=== PATIENT | female | born 1945 | race Caucasian/White ===

== ENCOUNTER 2022-11-09 07:33 | Inpatient (IN) | payer BC, MEDICAID, SELFPAY ==
[2022-11-09] VITALS (23 sets, daily range): BP systolic 117–250; BP diastolic 70–115; PULSE 60–106; RESP 12–32; TEMP 35.7–37.2; O2SAT 86–100; BMI 27.5
--- NOTE | ~2022-11-09 | CT_ITS ---
EXAMINATION: CT HEAD WITHOUT CONTRAST CLINICAL INFORMATION: Altered mental status. COMPARISON: CT head 04/13/2019. TECHNIQUE: Contiguous axial imaging was performed from the skull base to vertex without intravenous administration of contrast. This CT examination was performed using dose optimization techniques as appropriate, variously including the following: *Automated exposure control *Adjustment of mA and/or kV according to patient size (this includes techniques or standardized protocols for targeted exams where dose is matched to indication/reason for exam; i.e. extremities or head) *Use of iterative reconstruction technique DLP: 1866 mGy-cm FINDINGS: There is no acute intracranial hemorrhage or abnormal extra-axial collection. No intracranial mass effect or midline shift. Lateral and third ventricles are normal. No hydrocephalus. Scattered nonspecific foci of hypoattenuation visualized within the periventricular white matter. Thomas-white matter differentiation is otherwise preserved and there is no evidence of acute territorial infarct. The calvarium and skull base are intact. Mastoid air cells and middle ear cavities are well aerated. Moderate paranasal sinus disease. CT/CT head/brain wo IV con IMPRESSION: There are scattered chronic small vessel ischemic changes within the periventricular white matter. Otherwise unremarkable examination. No evidence of acute territorial infarct or hemorrhage.
--- NOTE | ~2022-11-09 | XR_ITS ---
EXAMINATION: XR CHEST CLINICAL INFORMATION: Fever COMPARISON: Chest radiography and chest CT 11/09/2022 TECHNIQUE: Frontal view of the chest was obtained. FINDINGS: Evaluation is somewhat limited by rotation. There is evidence of increasing pleural-based opacity in the lower right hemithorax consistent with developing moderate pleural effusion and right lower lung atelectasis or consolidation. Persistent reticular opacity is seen through the right upper lung and throughout the left lung. The left pleural space appears clear. XR/XR chest 1V IMPRESSION: Technically limited examination demonstrates increasing right thoracic opacity consistent with moderate pleural effusion and increasing right lower lung atelectasis or airspace consolidation. Persistent reticular opacity through the superior right lung and throughout the left lung.
--- NOTE | ~2022-11-09 | CT_ITS ---
EXAMINATION: CT chest wo IV con. CLINICAL INFORMATION: Shortness of breath COMPARISON: No prior CT available for comparison. TECHNIQUE: Multidetector volumetric CT imaging of the chest was done. Axial MIP volume rendering provided. Sagittal and coronal reformatted images were obtained. This CT examination was performed using dose optimization techniques as appropriate, variously including the following: *Automated exposure control *Adjustment of mA and/or kV according to patient size (this includes techniques or standardized protocols for targeted exams where dose is matched to indication/reason for exam; i.e. extremities or head) *Use of iterative reconstruction technique CONTRAST: Noncontrasted study. DLP: 370 mGy-cm FINDINGS: EX CHEF: LINES/TUBES: Energy Audit Advisor reviewed, no lines. LUNGS: Lung parenchyma: There is pulmonary vascular congestion, diminished lung volume, there is interstitial opacification consolidation in the middle lobe and right lower lobe, air bronchogram, the pattern suggests most likely pneumonia. Lung nodules/masses: It would be difficult to assess for possible lung nodules given the extensive disease present which could easily obscured underlying nodules. AIRWAYS: Trachea and bronchi are normal. PLEURA: There is a small right pleural effusion. MEDIASTINUM AND CATARINO: Enlarged pretracheal lymph node measuring up to 2 x 1.4 cm. Uncertain etiology could be reactive. Other lymph nodes difficult to visualize due to lack of contrast. No mediastinal mass. VESSELS: HEART AND PERICARDIUM: Aneurysmal dilatation of the descending thoracic aorta which measure up to 3.9 x 4 cm, the aorta is heavily calcified. Ascending aorta 3.5 cm. The heart is enlarged. No pericardial effusion. There are heavy coronary calcifications. Pulmonary arteries are normal in size. LOWER NECK, AXILLA: The visualized thyroid gland is unremarkable. No axillary mass or adenopathy. VISUALIZED ABDOMEN: There is probably hiatal hernia. Otherwise unremarkable. CHEST WALL AND BONES: No chest wall mass. The visualized bony thorax is within normal limits. CT/CT chest wo IV con IMPRESSION: - Cardiomegaly, pulmonary vascular congestion,. *Diminished lung volume. *Consolidations in the middle lobe and right lower lobe, air bronchogram, the pattern suggests most likely pneumonia. Follow-up recommended to ensure complete clearance and exclude underlying pathology. - Small right pleural effusion. - Enlarged pretracheal lymph node 2 x 1.4 cm, this could be reactive. 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 - Heavy coronary calcification. - Probably hiatal hernia.
--- NOTE | ~2022-11-09 | CT_ITS ---
EXAMINATION: CT ABDOMEN AND PELVIS WITHOUT CONTRAST CLINICAL INFORMATION: 77-year-old female with severe right-sided abdominal pain. COMPARISON: None available. TECHNIQUE: Multidetector volumetric imaging was performed from the superior aspect of the liver through the pubic symphysis. Sagittal and coronal reformatted images were obtained on the technologist's workstation. This CT examination was performed using dose optimization techniques as appropriate, variously including the following: *Automated exposure control *Adjustment of mA and/or kV according to patient size (this includes techniques or standardized protocols for targeted exams where dose is matched to indication/reason for exam; i.e. extremities or head) *Use of iterative reconstruction technique DLP: 800.42 mGy-cm FINDINGS: LUNG BASES: Mucous plugging of right lower lobe bronchi. Patchy airspace opacity in the right middle lobe and right lower lobe is likely from infectious/inflammatory rather than infiltrative neoplastic disease process. Clinical correlation is advised. Trace right pleural effusion is present. Cardiomegaly. There is atherosclerotic calcification of coronary arteries and thoracic aorta. LIVER: The liver has normal size, shape, and attenuation. No evidence of liver mass. GALLBLADDER AND BILIARY TREE: Gallbladder is physiologically distended and has a 0.5 cm calcified stone. No gallbladder wall thickening or pericholecystic fluid. No dilated bile ducts. PANCREAS: Normal. No edema, pancreatic ductal dilatation or mass. SPLEEN: Normal. ADRENAL GLANDS: Mild nodular thickening of the medial limb of left adrenal gland. The nodular area in the left adrenal measures 1 cm transverse, 1.5 cm AP, and has density of 3 HU, consistent with lipid rich adenoma. No adrenal imaging follow-up recommended. KIDNEYS AND URETERS: Kidneys are normal in size. No renal stones or hydronephrosis. 2 cm simple cortical cyst of the posterior left lower pole. No renal imaging follow-up recommended. The ureters are grossly unremarkable. BLADDER: Normal. BOWEL AND PERITONEUM: No dilated loops of bowel. The appendix is not definitively seen. No inflammatory changes within the right lower quadrant. Multiple diverticula of the descending and sigmoid colon without evidence of diverticulitis. No mesenteric fat stranding, free fluid or pneumoperitoneum. ABDOMINAL WALL: Chronic diastases of rectus abdominis muscles. An old 1.5 cm focus of fat necrosis is present in subcutaneous tissues of the anterior abdominal wall. VASCULATURE: There is extensive atherosclerotic calcification of the abdominal aorta and iliac arteries. The infrarenal abdominal aorta measures up to 2.2 cm maximum AP diameter. No retroperitoneal hematoma. LYMPH NODES: No pathologic sized lymph nodes in the abdomen or pelvis. No inguinal lymphadenopathy. PELVIC VISCERA: Status post hysterectomy. No adnexal mass or pelvic free fluid. MUSCULOSKELETAL: Bones are diffusely osteopenic. Old compression fracture of T1 vertebral body which exhibits approximately 45-50% anterior height loss. Facet osteoarthritis and grade 1 anterolisthesis at L5-S1. No acute or suspicious osseous abnormality. CT/CT abdomen pelvis wo IV con IMPRESSION: * Mucous plugging of right lower lobe bronchi, patchy airspace opacities of the right middle and right lower lobe and trace right pleural effusion. These abnormalities are likely from infectious/inflammatory disease (i.e, pneumonia) rather than an infiltrative neoplastic disease process. Clinical and radiographic follow-up recommended. * Cholelithiasis without cholecystitis. * Diverticulosis of the descending and sigmoid colon without diverticulitis. * No acute abnormalities within the abdomen or pelvis.
--- NOTE | ~2022-11-09 | XR_ITS ---
EXAMINATION: XR chest 1V CLINICAL INFORMATION: Reason for Exam sob COMPARISON: Prior chest x-ray 07/03/2021 TECHNIQUE: XR chest 1V Tubes and lines: None Lungs and pleura: Redemonstration of Diffuse increased interstitial lung marking and peribronchial cuffing might be a small airway disease such as bronchiolitis or interstitial pneumonitis, versus interstitial lung disease versus interstitial edema. No dense focal consolidation pneumonia. Heart and mediastinum: Mediastinum widened exaggerated by AP technique.. Bones/soft tissue: Skeletal structures included are normal for patient's age. XR/XR chest 1V IMPRESSION: Redemonstration of diffuse increased interstitial lung marking and peribronchial cuffing might be a small airway disease such as bronchiolitis or interstitial pneumonitis, versus interstitial lung disease versus interstitial edema. No dense focal consolidation pneumonia.
--- NOTE | 2022-11-09 07:55 | ECG_ITS ---
Test Reason : cp Blood Pressure : / mmHG Vent. Rate : 089 BPM Atrial Rate : 089 BPM P-R Int : 148 ms QRS Dur : 100 ms QT Int : 358 ms P-R-T Axes : 039 -30 076 degrees QTc Int : 435 ms Sinus rhythm with Premature atrial complexes Possible Left atrial enlargement Left axis deviation Left ventricular hypertrophy with repolarization abnormality ( R in aVL , Sokolow-Spencer , Roebl product , Romhilt-Ramos ) Abnormal ECG When compared with ECG of 04-JUL-2019 22:10, Premature atrial complexes are now Present Nonspecific T wave abnormality no longer evident in Inferior leads Referred By: Maribel Baez Electronically Signed By:HENRIK SMITH
--- NOTE | 2022-11-09 08:08 | ED.GENADULT ---
HPI - General Adult General Chief complaint: Abdominal Pain Stated complaint: RIGHT SIDED ABD PAIN Time Seen by Provider: 11/09/22 09:54 Source: patient and EMS Mode of arrival: EMS Limitations: other (patient poor historian ) History of Present Illness HPI narrative: 77-year-old female history, hypertension, anemia, chronic obstructive pulmonary disease, Alzheimer's disease, restless leg in agitation, adjustment disorder, acute psychosis coming from alf facility presents with right-sided abdominal pain per EMS, patient poor historian and unable to give me a clear history however she states that her breast hurts and her abdomen hurts, patient reports she has been feeling this way for 5 days however per EMS report facility states this is only been going on for day. Unable to obtain accurate review of systems from patient. She is only answering questions appropriately intermittently. Related Data Allergies Allergy/AdvReac Type Severity Reaction Status Date / Time epinephrine [EPINEPHRINE] Allergy Unknown UNKNOWN Verified 11/09/22 08:17 levofloxacin [LEVOFLOXACIN] Allergy Unknown UNKNOWN Verified 11/09/22 08:17 procaine [From NOVOCAIN] Allergy Unknown UNKNOWN Verified 11/09/22 08:17 codeine [Codeine] AdvReac Mild VOMITING Verified 11/09/22 08:17 hydrocortisone AdvReac Mild HIGH BP Verified 11/09/22 08:17 [From Cortizone-10] atenolol [ATENOLOL] AdvReac Unknown UNKNOWN Verified 11/09/22 08:17 lidocaine [LIDOCAINE] AdvReac Unknown UNKNOWN Verified 11/09/22 08:17 sulfamethizole AdvReac Unknown UNKNOWN Verified 11/09/22 08:17 [SULFAMETHIZOLE] Review of Systems Review of Systems: Yes Unobtainable due to mental status PMFSH Past Medical History Attestation statement: The following information was validated with the patient. Source: old records reviewed and nursing notes reviewed Medical History (Updated 11/09/22 @ 12:27 by KEMAL Mobley) AD (Alzheimer's disease) Adjustment disorder Anemia Congestive heart failure COPD (chronic obstructive pulmonary disease) HTN (hypertension) Hyperlipidemia Insomnia Pruritus Social History Social History Alcohol intake: unknown Use of substances other than those prescribed or required for medical reasons: Unable to respond Advance Directives: No Advance Directives Information Provided: Yes Physical Exam ED Vital Signs: Vital Signs - 24 hr 11/09/22 07:39 11/09/22 09:23 11/09/22 10:29 Temperature 99.0 F 98.7 F Pulse Rate 98 83 94 Pulse Rate [Bilateral Apical] Respiratory Rate 24 H 27 H 22 H Blood Pressure 226/97 H Pulse Oximetry 86 L Oxygen Delivery Method Room Air Nasal Cannula Oxygen Flow Rate 4 11/09/22 10:00 11/09/22 10:12 11/09/22 10:13 Temperature Pulse Rate 94 93 93 Pulse Rate [Bilateral Apical] Respiratory Rate 30 H 26 H 26 H Blood Pressure 248/112 H Pulse Oximetry 93 100 97 Oxygen Delivery Method Non-Rebreather Mask Non-Rebreather Mask Oxygen Flow Rate 6 100 11/09/22 10:31 11/09/22 10:49 11/09/22 11:12 Temperature Pulse Rate 98 106 H 89 Pulse Rate [Bilateral Apical] Respiratory Rate 30 H 32 H 28 H Blood Pressure 248/112 H 247/106 H 250/115 H Pulse Oximetry 93 90 L 90 L Oxygen Delivery Method Oxymask Oxymask Oxygen Flow Rate 10 10 11/09/22 11:12 11/09/22 11:42 11/09/22 11:53 Temperature 97.6 F 96.3 F L Pulse Rate 95 92 Pulse Rate [Bilateral Apical] Respiratory Rate 26 H 18 21 H Blood Pressure 236/88 H 215/89 H Pulse Oximetry 90 L 95 Oxygen Delivery Method Oxymask Oxygen Flow Rate 10 11/09/22 09:30 11/09/22 12:00 Temperature 98.4 F Pulse Rate 61 Pulse Rate [Bilateral Apical] 96 Respiratory Rate 22 H Blood Pressure 184/72 H Pulse Oximetry 91 L Oxygen Delivery Method High Flow Nasal Cannula Oxygen Flow Rate BMI result Body Mass Index 27.5 Vital signs significant for hypoxia. Placed on 2 L nasal cannula Appearance: Awake and not oriented to person, place time or situation. Patient appears uncomfortable Head: Normocephalic, atraumatic, no step-offs or deformities Eyes: Pupils equal, round and reactive to light.? Neck: Normal inspection.? Neck supple.? CVS: Normal heart rate and rhythm.? Pulses normal.? Respiratory: No respiratory distress.? Breath sounds diminished bilaterally with crackles throughout..? Abdomen: Soft and diffusely tender worse to the right upper and lower quadrant slightly rigit abdomen w/ rebound tenderness patient gaurding abdomen.? Skin: Skin warm and dry.? Normal skin color.? Normal skin turgor.? Extremities: No lower extremity edema.? No calf ttp. Global weakness. Neuro: Awake and not oriented to person, place time or situation. Patient appears uncomfortable. Unable to follow commands , therefore difficult to obtain neurological assessment on this patient. Course Reevaluation(s) Reevaluation #1: Amaris ORTIZ from [facility] states that at 0300 patient was asking to go to the hospital, she was having RLQ pain and reported that the pain went to R armpit. Patient usually doesnt complain of pain per nurse. Patient + for rhinoviurs results came in yesterday, patient was not hypoxic there. Not on oxygen. Full code. Time: 08:25 Reevaluation #2: Patient was agitated and it was difficult to obtain labs and get an IV on patient, I was able to start a line on this patient in the right forearm region Time: 08:30 Reevaluation #3: At this time infection suspected white blood cell count 31.3, Time: 09:02 Additional Reevaluation(s): 1025- I was called to CT scan as patient was sitting up, she is altered, pulling on monitor leads, not staying still, my attending responded to the call, gave ketamine, 30 mg. Patient on satellite project site monitor saturating 98%. I did speak to patient's who states patient is full code into follow-up patient's MOLST form . I did ask patient's what he would like done in case she needed surgery for any reason and he says to proceed with surgery if at any point surgery is needed. 1032- chemistry with no acute electrolyte abnormalities requiring intervention BUN slightly elevated 29 likely secondary to poor p.o. intake/dehydration, troponin 20.4, will repeat at the 3 hour myrtle, BNP 380, no signs of fluid overload on exam, shortness of breath likely secondary to pneumonia I do not suspect acute CHF. Patient D-dimer elevated however likely secondary to pneumonia, this case was discussed with my attending who does not recommend CT scans with contrast. 1228 CT head and brain with scattered chronic small-vessel ischemic changes however no acute intracranial hemorrhage or acute territorial infarct. CT of chest with cardiomegaly, pulmonary vascular congestion, diminished lung volumes. 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 Abdomen pelvis CT with mucus plugging in right lower lobe bronchi, patchy airspace opacities, I did add is a throat patient's medications. Cholelithiasis without cholecystitis. Diverticulosis of the descending and sigmoid colon without diverticulitis. No acute abnormalities within the abdomen or pelvis. Patient's pressure improving, spoke to hospitalist to admit this patient. Patient saturating well on high-flow Medications Administered Discontinued Medications Generic Name Dose Route Start Last Admin Trade Name Freq PRN Reason Stop Dose Admin Albuterol/Ipratropium 3 ml 11/09/22 09:26 11/09/22 10:29 Albuterol/Iprat 2.5/0.5mg 3 Ml Ampul.Neb INHALE 11/09/22 09:27 3 ml ONCE ONE Administration Amlodipine Besylate 5 mg 11/09/22 08:24 11/09/22 08:49 Amlodipine Besylate 5 Mg Tablet PO 11/09/22 08:25 5 mg ONCE ONE Administration Protocol Hydromorphone HCl 0.5 mg 11/09/22 09:49 11/09/22 09:55 Hydromorphone Hcl 0.5 Mg/0.5 Ml Syringe IVPUSH 11/09/22 09:50 0.5 mg ONCE ONE Administration Protocol Piperacillin Sod/Tazobactam 50 mls @ 100 mls/hr 11/09/22 09:00 11/09/22 09:50 Sod 3.375 gm/ Sodium Chloride IV 11/09/22 09:29 Infused ONCE ONE Infusion Sodium Chloride 2,319 mls @ 2,319 mls/hr 11/09/22 09:00 11/09/22 10:00 Ns 30 ml/kg infuse over 1 hr (2319 ml) 11/09/22 09:59 Infused IV Infusion .Q1H STA Ketamine HCl 30 mg 11/09/22 10:31 11/09/22 10:39 Ketamine Hcl 500 Mg/5 Ml Vial IVPUSH 11/09/22 10:32 30 mg ONCE ONE Administration Morphine Sulfate 4 mg 11/09/22 08:21 11/09/22 08:48 Morphine Sulfate 4 Mg/Ml Cartridge IVPUSH 11/09/22 08:22 4 mg ONCE ONE Administration Protocol Medical Decision Making Medical Decision Making [facility] Narrative: 0810 77-year-old female presents with right-sided abdominal per EMS and patient however patient poor historian. Physical exam significant fordiffusely tender worse to the right upper and lower quadrant slightly rigit abdomen w/ rebound tenderness patient gaurding abdomen.?, lung sounds diminished bilaterally with crackles throughout. Regular rate rhythm peer. Patient is not alert to person, place time or situation. Not following commands. Unable to obtain accurate neurological assessment Hypoxic and hypertensive. B/l pressure elevated but similar. Concerns for possible pneumonia, pleural effusion, pulmonary embolism. Also concern for intra-abdominal etiologies such as obstruction, appendicitis, pancreatitis, diverticulitis, cholecystitis. History and physical exam concerning for possible surgical abdomen will obtain imaging. Will obtain EKG to rule out dysrhythmia is will obtain troponin to rule out ACS. Will rule out electrolyte abnormalities and UTI. Hx and PE unlikely disection/ ruptured aneurysm. Hypertension likely secondary to pain however other differentials include hypertensive urgency or emergency. Plan at this time labs, imaging, urine. Attempting to call Matilda Sosa to obtain more information Differential Diagnosis Differential Diagnoses: The differential diagnosis associated with the presentation includes Concerns for possible pneumonia, pleural effusion, pulmonary embolism. Also concern for intra-abdominal etiologies such as obstruction, appendicitis, pancreatitis, diverticulitis, cholecystitis. History and physical exam concerning for possible surgical abdomen will obtain imaging. Will obtain EKG to rule out dysrhythmia is will obtain troponin to rule out ACS. Will rule out electrolyte abnormalities and UTI. Hx and PE unlikely disection/ ruptured aneurysm. Hypertension likely secondary to pain however other differentials include hypertensive urgency or emergency. Admission/Observation Consideration of admission/observation: Escalation of care including admission/observation considered Lab Data [facility] Lab Attestation statement: I reviewed the patient's lab results. 11/09/22 08:43 11/09/22 08:41 Labs: Lab Results 11/09/22 11/09/22 11/09/22 Range/Units 08:41 08:41 08:41 WBC (4.8-10.8) X10*3/uL RBC (4.20-5.50) X10*6/uL Hgb (12.0-16.0) g/dl Hct (37.0-47.0) % MCV (80.0-98.0) fL MCH (27.0-33.0) pg MCHC (31.0-35.0) g/dl RDW (11.0-16.0) % Plt Count (160-400) X10*3/uL MPV (9.4-12.3) fL Immature Gran % (Auto) Neut % (Auto) Lymph % (Auto) [place] % (Auto) Eos % (Auto) Baso % (Auto) Lymph # (Auto) [place] # (Auto) Eos # (Auto) Baso # (Auto) Abs Immat Gran (auto) Absolute Neuts (auto) Absolute Nucleated RBC (0.0-0.012) X10*3/uL Nucleated RBC % (auto) (0.0-0.2) /100WBC Neutrophils % (Manual) (45-73) % Band Neutrophils % (3-5) % Lymphocytes % (Manual) (20-40) % Monocytes % (Manual) (2-11) % Abs Neuts (Manual) (2.0-8.3) X10*3/uL Lymphocytes # (Manual) (1.2-4.9) X10*3/uL Monocytes # (Manual) (0.1-1.2) X10*3/uL Toxic Vacuolation Platelet Estimate (NORMAL) Large Platelets Plt Morphology Comment RBC Morphology Smear Tech's Comments PT (11.1-13.3) SEC INR (0.9-1.1) D-Dimer High Sensitivty NG/ML O2 Saturation % ABG pH at Pt Temp (7.35-7.45) ABG pCO2 at Pt Temp (32-45) mmHg ABG pO2 at Pt Temp (83-108) mmHg ABG HCO3 (22-26) mmol/L ABG Base Excess (Actual) mmol/L Sodium (135-145) mmol/L Potassium (3.3-5.1) mmol/L Chloride (96-108) mmol/L Carbon Dioxide (22-29) mmol/L Anion Gap (12-20) BUN (9-16) mg/dL Creatinine (0.5-1.4) mg/dL Estim Creat Clear Calc Estimated GFR Random Glucose (60-115) mg/dL Lactic Acid 1.7 (0.5-2.0) mmol/L Calcium (8.4-10.2) mg/dL Magnesium (1.6-2.6) mg/dL Total Bilirubin (0.0-1.0) mg/dL AST (5-31) U/L ALT (0-31) U/L Alkaline Phosphatase (39-117) U/L Troponin I High Sens 20.4 H (<3.5-17.0) ng/L B-Natriuretic Peptide 380 H (<100) pg/mL Total Protein (6.5-8.0) g/dL Albumin (3.5-5.0) g/dL Lipase (8-78) U/L Urine Color Urine Appearance Urine pH (5.0-9.0) Ur Specific [place] (1.005-1.025) Urine Protein (Neg-Trace) mg/dL Urine Glucose (UA) (Negative) mg/dL Urine Ketones (Negative) mg/dL Urine Blood (Negative) Urine Nitrite (Negative) Ur Leukocyte Esterase (Negative) Urine RBC (0-2) /HPF Urine WBC (0-5) /HPF Ur Squamous Epith Cells (0-2) /HPF Urine Bacteria (None Seen) Hyaline Casts (0-2) /LPF Salicylates (15-30) mg/dL Urine Opiates Screen (Not Detect) Urine Fentanyl Screen (Not Detect) Acetaminophen (<30) mcg/mL Ur Barbiturates Screen (Not Detect) Ur Phencyclidine Scrn (Not Detect) Ur Amphetamines Screen (Not Detect) U Benzodiazepines Scrn (Not Detect) Urine Cocaine Screen (Not Detect) U Marijuana (THC) Screen (Not Detect) COVID-19 (WILLIAN) (Negative) COVID-19 Clin Com 11/09/22 11/09/22 11/09/22 Range/Units 08:43 08:44 09:42 WBC 31.3 H* (4.8-10.8) X10*3/uL RBC 4.66 (4.20-5.50) X10*6/uL Hgb 14.7 (12.0-16.0) g/dl Hct 43.7 (37.0-47.0) % MCV 93.8 (80.0-98.0) fL MCH 31.5 (27.0-33.0) pg MCHC 33.6 (31.0-35.0) g/dl RDW 14.3 (11.0-16.0) % Plt Count 228 (160-400) X10*3/uL MPV 12.0 (9.4-12.3) fL Immature Gran % (Auto) Cancelled Neut % (Auto) Cancelled Lymph % (Auto) Cancelled [place] % (Auto) Cancelled Eos % (Auto) Cancelled Baso % (Auto) Cancelled Lymph # (Auto) Cancelled [place] # (Auto) Cancelled Eos # (Auto) Cancelled Baso # (Auto) Cancelled Abs Immat Gran (auto) Cancelled Absolute Neuts (auto) Cancelled Absolute Nucleated RBC 0.000 (0.0-0.012) X10*3/uL Nucleated RBC % (auto) 0.0 (0.0-0.2) /100WBC Neutrophils % (Manual) 83 H (45-73) % Band Neutrophils % 12 H (3-5) % Lymphocytes % (Manual) 3 L (20-40) % Monocytes % (Manual) 2 (2-11) % Abs Neuts (Manual) 29.7 H (2.0-8.3) X10*3/uL Lymphocytes # (Manual) 0.9 L (1.2-4.9) X10*3/uL Monocytes # (Manual) 0.6 (0.1-1.2) X10*3/uL Toxic Vacuolation PRESENT Platelet Estimate NORMAL (NORMAL) Large Platelets PRESENT Plt Morphology Comment NOTED RBC Morphology NORMAL Smear Tech's Comments MANUAL DIFF PT 16.3 H (11.1-13.3) SEC INR 1.3 H (0.9-1.1) D-Dimer High Sensitivty 463 NG/ML O2 Saturation % ABG pH at Pt Temp (7.35-7.45) ABG pCO2 at Pt Temp (32-45) mmHg ABG pO2 at Pt Temp (83-108) mmHg ABG HCO3 (22-26) mmol/L ABG Base Excess (Actual) mmol/L Sodium (135-145) mmol/L Potassium (3.3-5.1) mmol/L Chloride (96-108) mmol/L Carbon Dioxide (22-29) mmol/L Anion Gap (12-20) BUN (9-16) mg/dL Creatinine (0.5-1.4) mg/dL Estim Creat Clear Calc Estimated GFR Random Glucose (60-115) mg/dL Lactic Acid (0.5-2.0) mmol/L Calcium (8.4-10.2) mg/dL Magnesium (1.6-2.6) mg/dL Total Bilirubin (0.0-1.0) mg/dL AST (5-31) U/L ALT (0-31) U/L Alkaline Phosphatase (39-117) U/L Troponin I High Sens (<3.5-17.0) ng/L B-Natriuretic Peptide (<100) pg/mL Total Protein (6.5-8.0) g/dL Albumin (3.5-5.0) g/dL Lipase (8-78) U/L Urine Color Urine Appearance Urine pH (5.0-9.0) Ur Specific [place] (1.005-1.025) Urine Protein (Neg-Trace) mg/dL Urine Glucose (UA) (Negative) mg/dL Urine Ketones (Negative) mg/dL Urine Blood (Negative) Urine Nitrite (Negative) Ur Leukocyte Esterase (Negative) Urine RBC (0-2) /HPF Urine WBC (0-5) /HPF Ur Squamous Epith Cells (0-2) /HPF Urine Bacteria (None Seen) Hyaline Casts (0-2) /LPF Salicylates (15-30) mg/dL Urine Opiates Screen (Not Detect) Urine Fentanyl Screen (Not Detect) Acetaminophen (<30) mcg/mL Ur Barbiturates Screen (Not Detect) Ur Phencyclidine Scrn (Not Detect) Ur Amphetamines Screen (Not Detect) U Benzodiazepines Scrn (Not Detect) Urine Cocaine Screen (Not Detect) U Marijuana (THC) Screen (Not Detect) COVID-19 (WILLIAN) Negative (Negative) COVID-19 Clin Com See Note 11/09/22 11/09/22 11/09/22 Range/Units 09:42 09:42 11:39 WBC (4.8-10.8) X10*3/uL RBC (4.20-5.50) X10*6/uL Hgb (12.0-16.0) g/dl Hct (37.0-47.0) % MCV (80.0-98.0) fL MCH (27.0-33.0) pg MCHC (31.0-35.0) g/dl RDW (11.0-16.0) % Plt Count (160-400) X10*3/uL MPV (9.4-12.3) fL Immature Gran % (Auto) Neut % (Auto) Lymph % (Auto) [place] % (Auto) Eos % (Auto) Baso % (Auto) Lymph # (Auto) [place] # (Auto) Eos # (Auto) Baso # (Auto) Abs Immat Gran (auto) Absolute Neuts (auto) Absolute Nucleated RBC (0.0-0.012) X10*3/uL Nucleated RBC % (auto) (0.0-0.2) /100WBC Neutrophils % (Manual) (45-73) % Band Neutrophils % (3-5) % Lymphocytes % (Manual) (20-40) % Monocytes % (Manual) (2-11) % Abs Neuts (Manual) (2.0-8.3) X10*3/uL Lymphocytes # (Manual) (1.2-4.9) X10*3/uL Monocytes # (Manual) (0.1-1.2) X10*3/uL Toxic Vacuolation Platelet Estimate (NORMAL) Large Platelets Plt Morphology Comment RBC Morphology Smear Tech's Comments PT (11.1-13.3) SEC INR (0.9-1.1) D-Dimer High Sensitivty NG/ML O2 Saturation 96.0 % ABG pH at Pt Temp 7.30 L (7.35-7.45) ABG pCO2 at Pt Temp 53 H (32-45) mmHg ABG pO2 at Pt Temp 94 (83-108) mmHg ABG HCO3 27 H (22-26) mmol/L ABG Base Excess (Actual) -0.4 mmol/L Sodium 136 (135-145) mmol/L Potassium 3.9 (3.3-5.1) mmol/L Chloride 100 (96-108) mmol/L Carbon Dioxide 24 (22-29) mmol/L Anion Gap 16 (12-20) BUN 29 H (9-16) mg/dL Creatinine 0.86 (0.5-1.4) mg/dL Estim Creat Clear Calc 59.3 Estimated GFR > 60 Random Glucose 163 H (60-115) mg/dL Lactic Acid (0.5-2.0) mmol/L Calcium 10.2 (8.4-10.2) mg/dL Magnesium 2.3 (1.6-2.6) mg/dL Total Bilirubin 1.8 H (0.0-1.0) mg/dL AST 22 (5-31) U/L ALT 14 (0-31) U/L Alkaline Phosphatase 90 (39-117) U/L Troponin I High Sens (<3.5-17.0) ng/L B-Natriuretic Peptide (<100) pg/mL Total Protein 7.5 (6.5-8.0) g/dL Albumin 4.1 (3.5-5.0) g/dL Lipase 9 (8-78) U/L Urine Color Urine Appearance Urine pH (5.0-9.0) Ur Specific [place] (1.005-1.025) Urine Protein (Neg-Trace) mg/dL Urine Glucose (UA) (Negative) mg/dL Urine Ketones (Negative) mg/dL Urine Blood (Negative) Urine Nitrite (Negative) Ur Leukocyte Esterase (Negative) Urine RBC (0-2) /HPF Urine WBC (0-5) /HPF Ur Squamous Epith Cells (0-2) /HPF Urine Bacteria (None Seen) Hyaline Casts (0-2) /LPF Salicylates < 5.0 L (15-30) mg/dL Urine Opiates Screen (Not Detect) Urine Fentanyl Screen (Not Detect) Acetaminophen < 17 (<30) mcg/mL Ur Barbiturates Screen (Not Detect) Ur Phencyclidine Scrn (Not Detect) Ur Amphetamines Screen (Not Detect) U Benzodiazepines Scrn (Not Detect) Urine Cocaine Screen (Not Detect) U Marijuana (THC) Screen (Not Detect) COVID-19 (WILLIAN) (Negative) COVID-19 Clin Com 11/09/22 11/09/22 Range/Units 11:59 11:59 WBC (4.8-10.8) X10*3/uL RBC (4.20-5.50) X10*6/uL Hgb (12.0-16.0) g/dl Hct (37.0-47.0) % MCV (80.0-98.0) fL MCH (27.0-33.0) pg MCHC (31.0-35.0) g/dl RDW (11.0-16.0) % Plt Count (160-400) X10*3/uL MPV (9.4-12.3) fL Immature Gran % (Auto) Neut % (Auto) Lymph % (Auto) [place] % (Auto) Eos % (Auto) Baso % (Auto) Lymph # (Auto) [place] # (Auto) Eos # (Auto) Baso # (Auto) Abs Immat Gran (auto) Absolute Neuts (auto) Absolute Nucleated RBC (0.0-0.012) X10*3/uL Nucleated RBC % (auto) (0.0-0.2) /100WBC Neutrophils % (Manual) (45-73) % Band Neutrophils % (3-5) % Lymphocytes % (Manual) (20-40) % Monocytes % (Manual) (2-11) % Abs Neuts (Manual) (2.0-8.3) X10*3/uL Lymphocytes # (Manual) (1.2-4.9) X10*3/uL Monocytes # (Manual) (0.1-1.2) X10*3/uL Toxic Vacuolation Platelet Estimate (NORMAL) Large Platelets Plt Morphology Comment RBC Morphology Smear Tech's Comments PT (11.1-13.3) SEC INR (0.9-1.1) D-Dimer High Sensitivty NG/ML O2 Saturation % ABG pH at Pt Temp (7.35-7.45) ABG pCO2 at Pt Temp (32-45) mmHg ABG pO2 at Pt Temp (83-108) mmHg ABG HCO3 (22-26) mmol/L ABG Base Excess (Actual) mmol/L Sodium (135-145) mmol/L Potassium (3.3-5.1) mmol/L Chloride (96-108) mmol/L Carbon Dioxide (22-29) mmol/L Anion Gap (12-20) BUN (9-16) mg/dL Creatinine (0.5-1.4) mg/dL Estim Creat Clear Calc Estimated GFR Random Glucose (60-115) mg/dL Lactic Acid (0.5-2.0) mmol/L Calcium (8.4-10.2) mg/dL Magnesium (1.6-2.6) mg/dL Total Bilirubin (0.0-1.0) mg/dL AST (5-31) U/L ALT (0-31) U/L Alkaline Phosphatase (39-117) U/L Troponin I High Sens (<3.5-17.0) ng/L B-Natriuretic Peptide (<100) pg/mL Total Protein (6.5-8.0) g/dL Albumin (3.5-5.0) g/dL Lipase (8-78) U/L Urine Color Dark Yellow Urine Appearance Cloudy Urine pH 5.5 (5.0-9.0) Ur Specific [place] >= 1.030 H (1.005-1.025) Urine Protein 100 (2+) H (Neg-Trace) mg/dL Urine Glucose (UA) Negative (Negative) mg/dL Urine Ketones Trace (Negative) mg/dL Urine Blood Negative (Negative) Urine Nitrite Negative (Negative) Ur Leukocyte Esterase Trace H (Negative) Urine RBC 3-5 H (0-2) /HPF Urine WBC 6-10 H (0-5) /HPF Ur Squamous Epith Cells 6-10 (0-2) /HPF Urine Bacteria 2+ (None Seen) Hyaline Casts 3-5 (0-2) /LPF Salicylates (15-30) mg/dL Urine Opiates Screen POSITIVE H (Not Detect) Urine Fentanyl Screen Not Detected (Not Detect) Acetaminophen (<30) mcg/mL Ur Barbiturates Screen Not Detected (Not Detect) Ur Phencyclidine Scrn Not Detected (Not Detect) Ur Amphetamines Screen Not Detected (Not Detect) U Benzodiazepines Scrn Not Detected (Not Detect) Urine Cocaine Screen Not Detected (Not Detect) U Marijuana (THC) Screen Not Detected (Not Detect) COVID-19 (WILLIAN) (Negative) COVID-19 Clin Com Independent Interpretation I performed an independent interpretation of an: CT Scan Radiology Impression Discussion of test interpretation with radiology: I have reviewed the radiologist's reading. Core Measures AMI core measures followed: Yes Measure exclusions: not indicated Critical Care Time Critical Care Time Critical Care Time: Yes Total Critical Care Time: 60 Attestation: I attest to this time spent taking care of the patient, obtaining history, physical, reviewing labs, imaging, speaking to my attending, speaking to specialist. Discharge Plan Discharge Clinical Impression: Pneumonia, Sepsis, Abdominal pain, Acute UTI Patient Disposition: Still a Patient
[2022-11-09] MEDS: Morphine Sulfate 4 MG/ML CARTRIDGE IVPUSH ×2 (08:48→16:55)
--- NOTE | 2022-11-09 08:48 | PC.NURSE ---
brought to ed via ambulance from [facility], chief c/o 12/23 RU abd pain that radiates to the R side. on arrival pt satting 85-87% r/a, pt placed on 2L n/c brought O2 to 88-89%. O2 increased to 3L, O2 sat 89-90% 3l N/C. unable to obtain b/o on arrival d/t pt not able to stay still. oral temp 99.0. pt climbing out of bed resulting in move closer to nurses station. report of to DIANA Mccollum. KEMAL Hall aware.
[2022-11-09] MEDS: amLODIPine Besylate 5 MG TABLET PO (08:49)
[2022-11-09 08:55] LABS: Hematocrit 43.7 % (37.0-47.0); Hemoglobin 14.7 g/dl (12.0-16.0); Mean Corpuscular HGB Conc 33.6 g/dl (31.0-35.0); Mean Corpuscular Hemoglobin 31.5 pg (27.0-33.0); Mean Corpuscular Volume 93.8 fL (80.0-98.0); Platelet Count 228 X10*3/uL (160-400); Red Blood Count 4.66 X10*6/uL (4.20-5.50); Red Cell Distribution Width 14.3 % (11.0-16.0)
[2022-11-09 08:59] LABS: White Blood Count 31.3 X10*3/uL (4.8-10.8)
[2022-11-09 09:05] LABS: Lactic Acid 1.7 mmol/L (0.5-2.0)
[2022-11-09 09:10] LABS: COVID-19 Test Negative (Negative); IDNOW Serial# 08D9AD1C
[2022-11-09 09:16] LABS: B Type Natriuretic Peptide 380 pg/mL (<100)
[2022-11-09 09:16] LABS: SLIDE REVIEW MANUAL DIFF
--- NOTE | 2022-11-09 09:16 | PC.NURSE ---
pt moved from room 1 to room 21 due to patient attempting to climb oob, patient alert to person/place, iv inserted/labs drawn by provider, cardic monitor applied- pt noted to be in nonsustaining v-tach, ekg performed- ekg noted at the time to be nsr, pt continues to be hypertensive- took po medicatin, pt c/o 10/10 back pain- pt also medicated with morphine for pain, ivf started per order, cxr performed, fall precautions and standard precautions placed, call ricketts within reach, will continue to monitor.
[2022-11-09 09:19] LABS: Neutrophils Percent Manual 83 % (45-73)
[2022-11-09 09:20] LABS: Band Neutrophils Percent 12 % (3-5); Lymphocytes Absolute Manual 0.9 X10*3/uL (1.2-4.9); Lymphocytes Percent Manual 3 % (20-40); Monocytes Absolute Manual 0.6 X10*3/uL (0.1-1.2); Monocytes Percent Manual 2 % (2-11); Neutrophils Absolute Manual 29.7 X10*3/uL (2.0-8.3)
[2022-11-09] MEDS: Piperacillin Sodium/Tazobactam 3.375 GM in 0.9 % Sodium Chloride 50 ML IV (09:20)
[2022-11-09 09:21] LABS: Troponin-I High Sensitivity 20.4 ng/L (<3.5-17.0)
[2022-11-09 09:21] LABS: Large Platelet PRESENT; Platelet Estimate NORMAL (NORMAL); Platelet Morphology Comment NOTED; RBC Morphology NORMAL
[2022-11-09 09:22] LABS: Toxic Vacuolation PRESENT
[2022-11-09 09:54] LABS: INTERNATIONAL NORM RATIO 1.3 (0.9-1.1); Prothrombin Time 16.3 SEC (11.1-13.3)
[2022-11-09] MEDS: HYDROmorphone HCl 0.5 MG/0.5 ML SYRINGE IVPUSH (09:55)
[2022-11-09 09:56] LABS: D Dimer High Sensitivity 463 NG/ML
[2022-11-09 10:01] LABS: Anion Gap 16 (12-20)
[2022-11-09 10:05] LABS: Alanine Aminotransferase 14 U/L (0-31); Albumin Level 4.1 g/dL (3.5-5.0); Alkaline Phosphatase 90 U/L (39-117); Aspartate Amino Transferase 22 U/L (5-31); Bilirubin Total 1.8 mg/dL (0.0-1.0); Blood Urea Nitrogen 29 mg/dL (9-16); Calcium 10.2 mg/dL (8.4-10.2); Carbon Dioxide 24 mmol/L (22-29); Chloride 100 mmol/L (96-108); Creatinine Clr Calc Pharmacy 59.3; Estimated Glomerular Filt Rate > 60; Glucose Random 163 mg/dL (60-115); Lipase 9 U/L (8-78); Magnesium 2.3 mg/dL (1.6-2.6); Potassium 3.9 mmol/L (3.3-5.1); Sodium 136 mmol/L (135-145); Total Protein 7.5 g/dL (6.5-8.0)
[2022-11-09 10:21] LABS: Acetaminophen LAB < 17 mcg/mL (<30); Salicylate < 5.0 mg/dL (15-30)
[2022-11-09] MEDS: Albuterol/Iprat 2.5/0.5MG 3 ML AMPUL.NEB INHALE (10:29)
--- NOTE | 2022-11-09 10:35 | PC.NURSE ---
accompanied pt to CT - pt was extremely anxious and agitated while setting pt up for scans. pt was grabbing at this rn and radiologists clothing in fear. pt was in too much pain to lie flat on her back for scans to be completed. providers bedside as well and decided to administer ketamine to help ease anxiety and pain. provider pushed 20mg of ketamine at 10:12 (HR 93, 100% NRB, NSR), pt still restless after first dose. provider pushed another 10mg of ketamine at 1013 (HR 93< 97% NRB, NSR). pt tolerated medication administration well. scans completed by CT. pt returned to room and attached to monitors and IVF up and running. RT bedside giving breathing treatment. call ricketts placed within reach.
[2022-11-09] MEDS: Ketamine HCl 500 MG/5 ML VIAL 30 MG IVPUSH (10:39)
--- NOTE | 2022-11-09 10:51 | PC.NURSE ---
Addendum entered by Veda Alvarado RN 11/09/22 10:58: pt continues to have gag reflex Original Note: pt lungs continue to have rhonchi throughout, pt noted accessory muscle use with breathing as well as grunting, pt completed the updraft, placed on a oxymask 10 liters, providers at bedside due to patient status- notable htn, surveillance system monitor nsr with frequent pacs, ivf currently stopped per request of providers, respiratory to be called for high flow O2, will continue to monitor
--- NOTE | 2022-11-09 11:11 | PC.NURSE ---
contacted RT about ABG being drawn - states that they will be here shortly.
--- NOTE | 2022-11-09 11:25 | PC.NURSE ---
RT bedside - pt set on high flow. HF settings at 77% O2, 55 flow. RT attempting to draw ABG nanci.
--- NOTE | 2022-11-09 11:30 | PC.NURSE ---
RT had difficulty obtaining blood gas- Dr. Garcia at bedside to assist
[2022-11-09 11:45] LABS: ABG Base Excess -0.4 mmol/L; ABG HCO3 27 mmol/L (22-26); ABG pCO2 53 mmHg (32-45); ABG pO2 94 mmHg (83-108)
--- NOTE | 2022-11-09 11:55 | PC.NURSE ---
ABGs drawn by provider using ultrasound guidance - ABG sent to lab.
--- NOTE | 2022-11-09 11:57 | PC.NURSE ---
16Fr temp sensing granados catheter placed. pt tolerated well. 100ml of dark yellow/cloudy/small blood particles immediately after insertion. documented in I&O portion of worklist.
[2022-11-09 12:10] LABS: ABG Refer to POC result
[2022-11-09 12:11] LABS: Appearance Urine Cloudy; Color Urine Dark Yellow; Glucose Urine UA Negative (Negative); Leukocyte Esterase Urine Trace (Negative); Nitrite Urine Negative (Negative); PH 5.5 (5.0-9.0); Specific Gravity - Urine >= 1.030 (1.005-1.025); UMIC TRIGGER UACC YES; Urine Blood Negative (Negative); Urine Ketones Trace mg/dL (Negative); Urine Protein 100 (2+) mg/dL (Neg-Trace)
--- NOTE | 2022-11-09 12:15 | PC.NURSE ---
pt currently sleeping in no apparent distress, vss up to date on worklist. pt still currently on HiFlo 77% and 55. call ricketts placed within reach.
[2022-11-09 12:20] LABS: Amphetamine Screen Urine Not Detected (Not Detect); Barbiturates, Urine Not Detected (Not Detect); Benzodiazepines Screen Urine Not Detected (Not Detect); Cannabinoid Screen Urine Not Detected (Not Detect); Cocaine Screen Urine Not Detected (Not Detect); Fentanyl, urine Not Detected (Not Detect); Opiate Screen Urine POSITIVE (Not Detect); Phencyclidine Screen Urine Not Detected (Not Detect)
[2022-11-09 12:25] LABS: Bacteria Urine 2+ (None Seen); UACC Culture Trigger YES
--- NOTE | 2022-11-09 12:27 | P.HPHOSP_ITS ---
History of Present Illness Date of Service: 11/09/22 Attending physician on admission: Tee Peng Chief Complaint: Abdominal pain Pt is a 77-year-old female with a PMH significant for?Alzheimer's, HTN, COPD, adjustment disorder, and acute psychosis who presents to the ED from SNF apparently complaining abdominal pain radiating up the right side and shoulders. Patient is a resident of [facility] and not on any home meds, only taking acetaminophen p.r.n. Patient with hx of dementia, is AOx2 at baseline, but currently somnolent and barely arousable to noxious stimuli. She is inc apable of answering question is or providing accurate HPI at this time. HPI obtained from chart and provider review. Staff at [facility] report patient was experiencing RLQ pain radiating to right armpit. Patient tested positive for rhino virus yesterday. They report BP of 120/74 with O2 sats of 94% on RA. Patient not on home supplemental oxygen. Patient is a full code which was verified by ED who spoke to patient's . In the ED patient reported chest and abdominal pain. Was hypoxic at 86% on RA, improved to 97% on non-rebreather. Patient then placed on OxyMask with saturation at 90%., then placed on high- flow with mild improvement to 91%. In the ED patient was afebrile but tachycardic up to 106, tachypneic up to 32, hypertensive up to 250/115, satting at 86% on RA. Patient was placed on high- flow with improvement to 91%. Llabs were significant for leukocytosis of 31.3, bilirubin 1.8, BNP 380, and initial troponin 20.4 with repeat flat at 15.6. UA negative for UTI. H&H stable at 14.7/43.7. Electrolytes WNL. Renal function baseline. Lactic acid WNL at 1.7 CXR showed redemonstration of diffuse increased interstitial lung markings and peribronchial cuffing suggestive of small airway disease. CT of chest found consolidations in the middle lobe and right lower lobe most suggestive of pneumonia. 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 ?CT of abdomen and pelvis found no acute abnormalities in the abdomen or pelvis. Head CT found no evidence of acute territorial infarct or hemorrhage, but found scattered chronic small vessel ischemic changes. EKG demonstrated sinus rhythm with PACs. Pt was treated with morphine, amlodipine, IVF, DuoNebs, ketamine, Zosyn, and azithromycin. Pt will be admitted to the hospital for acute hypoxic respiratory failure in the setting hospital-acquired pneumonia. Review of Systems Review of Systems: Unable to obtain due to patient's mentation [facility] Medical History AD (Alzheimer's disease) Adjustment disorder Anemia Congestive heart failure COPD (chronic obstructive pulmonary disease) HTN (hypertension) Hyperlipidemia Insomnia Pruritus Social History Household Members: None Housing: [facility] Do you presently have visiting nurse or other home services: No Unable to assess alcohol history related to: Unknown Alcohol intake: unknown Patient Tobacco Use Status: Never used Tobacco Use of substances other than those prescribed or required for medical reasons: Unknown Currently Displaying Signs/Symptoms of Drug Intoxication Withdrawal: No Advance Directives: No Advance Directives Information Provided: Yes Do you have thoughts of harming others: None Do you have a plan to hurt others: No Plan Recently lost weight without trying: Unsure Nutrition Risks: No Nutritional Risk Patient : No : No Poor oral hygiene: No service: No Meds Allergies Allergy/AdvReac Type Severity Reaction Status Date / Time epinephrine [EPINEPHRINE] Allergy Unknown UNKNOWN Verified 11/09/22 08:17 levofloxacin [LEVOFLOXACIN] Allergy Unknown UNKNOWN Verified 11/09/22 08:17 procaine [From NOVOCAIN] Allergy Unknown UNKNOWN Verified 11/09/22 08:17 codeine [Codeine] AdvReac Mild VOMITING Verified 11/09/22 08:17 hydrocortisone AdvReac Mild HIGH BP Verified 11/09/22 08:17 [From Cortizone-10] atenolol [ATENOLOL] AdvReac Unknown UNKNOWN Verified 11/09/22 08:17 lidocaine [LIDOCAINE] AdvReac Unknown UNKNOWN Verified 11/09/22 08:17 sulfamethizole AdvReac Unknown UNKNOWN Verified 11/09/22 08:17 [SULFAMETHIZOLE] Active Medications: Current Medications Azithromycin 500 mg/ Sodium (Chloride) 250 mls @ 125 mls/hr IV ONCE ONE Stop: 11/09/22 14:17 Home Medications Medication Instructions Recorded Confirmed Last Taken Type acetaminophen 325 mg tablet 650 mg PO Q6H PRN Pain 11/09/22 11/09/22 Unknown History (Tylenol) nystatin 100,000 unit/gram topical 1 appl topical BID 11/09/22 11/09/22 Unknown History powder Physical Exam Vital Signs and Narrative: Vital Signs: Last Vital Signs Temp 98.4 F 11/09/22 12:00 Pulse 61 11/09/22 12:00 Resp 22 H 11/09/22 12:00 BP 184/72 H 11/09/22 12:00 Pulse Ox 91 L 11/09/22 12:00 O2 Del Method High Flow Nasal C annula 11/09/22 12:00 O2 Flow Rate 10 11/09/22 11:12 BMI result Body Mass Index 27.5 General: Somnolent, barely arousable to noxious stimuli, incapable of answering questions, on high-flow Resp: Diffuse rhonchi throughout CVS: S1, S2, RRR GI: +BS, NT, no distention Skin: No rash Neuro: Cranial nerves II-XII grossly intact bilaterally. Motor grossly intact bilaterally Extremities: No edema Results Labs 11/09/22 08:43 11/09/22 09:42 Labs: Laboratory Results - last 24 hr 11/09/22 11/09/22 11/09/22 08:41 08:41 08:43 MCV 93.8 MCH 31.5 MCHC 33.6 RDW 14.3 Plt Count 228 MPV 12.0 Immature Gran % (Auto) Cancelled Neut % (Auto) Cancelled Lymph % (Auto) Cancelled [place] % (Auto) Cancelled Eos % (Auto) Cancelled Baso % (Auto) Cancelled Lymph # (Auto) Cancelled [place] # (Auto) Cancelled Eos # (Auto) Cancelled Baso # (Auto) Cancelled Abs Immat Gran (auto) Cancelled Absolute Neuts (auto) Cancelled Absolute Nucleated RBC 0.000 Nucleated RBC % (auto) 0.0 Neutrophils % (Manual) 83 H Band Neutrophils % 12 H Lymphocytes % (Manual) 3 L Monocytes % (Manual) 2 Abs Neuts (Manual) 29.7 H Lymphocytes # (Manual) 0.9 L Monocytes # (Manual) 0.6 Toxic Vacuolation PRESENT Platelet Estimate NORMAL Large Platelets PRESENT Plt Morphology Comment NOTED RBC Morphology NORMAL Smear Tech's Comments MANUAL DIFF PT INR D-Dimer High Sensitivty O2 Saturation ABG pH at Pt Temp ABG pCO2 at Pt Temp ABG pO2 at Pt Temp ABG HCO3 ABG Base Excess (Actual) Anion Gap Estim Creat Clear Calc Estimated GFR Random Glucose Lactic Acid 1.7 Calcium Magnesium Total Bilirubin AST ALT Alkaline Phosphatase B-Natriuretic Peptide 380 H Total Protein Albumin Lipase Urine Color Urine Appearance Urine pH Ur Specific [place] Urine Protein Urine Glucose (UA) Urine Ketones Urine Blood Urine Nitrite Ur Leukocyte Esterase Urine RBC Urine WBC Ur Squamous Epith Cells Urine Bacteria Hyaline Casts Salicylates Urine Opiates Screen Urine Fentanyl Screen Acetaminophen Ur Barbiturates Screen Ur Phencyclidine Scrn Ur Amphetamines Screen U Benzodiazepines Scrn Urine Cocaine Screen U Marijuana (THC) Screen COVID-19 (WILLIAN) COVID-19 Clin Com 11/09/22 11/09/22 11/09/22 08:44 09:42 09:42 MCV MCH MCHC RDW Plt Count MPV Immature Gran % (Auto) Neut % (Auto) Lymph % (Auto) [place] % (Auto) Eos % (Auto) Baso % (Auto) Lymph # (Auto) [place] # (Auto) Eos # (Auto) Baso # (Auto) Abs Immat Gran (auto) Absolute Neuts (auto) Absolute Nucleated RBC Nucleated RBC % (auto) Neutrophils % (Manual) Band Neutrophils % Lymphocytes % (Manual) Monocytes % (Manual) Abs Neuts (Manual) Lymphocytes # (Manual) Monocytes # (Manual) Toxic Vacuolation Platelet Estimate Large Platelets Plt Morphology Comment RBC Morphology Smear Tech's Comments PT 16.3 H INR 1.3 H D-Dimer High Sensitivty 463 O2 Saturation ABG pH at Pt Temp ABG pCO2 at Pt Temp ABG pO2 at Pt Temp ABG HCO3 ABG Base Excess (Actual) Anion Gap 16 Estim Creat Clear Calc 59.3 Estimated GFR > 60 Random Glucose 163 H Lactic Acid Calcium 10.2 Magnesium 2.3 Total Bilirubin 1.8 H AST 22 ALT 14 Alkaline Phosphatase 90 B-Natriuretic Peptide Total Protein 7.5 Albumin 4.1 Lipase 9 Urine Color Urine Appearance Urine pH Ur Specific [place] Urine Protein Urine Glucose (UA) Urine Ketones Urine Blood Urine Nitrite Ur Leukocyte Esterase Urine RBC Urine WBC Ur Squamous Epith Cells Urine Bacteria Hyaline Casts Salicylates Urine Opiates Screen Urine Fentanyl Screen Acetaminophen Ur Barbiturates Screen Ur Phencyclidine Scrn Ur Amphetamines Screen U Benzodiazepines Scrn Urine Cocaine Screen U Marijuana (THC) Screen COVID-19 (WILLIAN) Negative COVID-19 Clin Com See Note 11/09/22 11/09/22 11/09/22 09:42 11:39 11:59 MCV MCH MCHC RDW Plt Count MPV Immature Gran % (Auto) Neut % (Auto) Lymph % (Auto) [place] % (Auto) Eos % (Auto) Baso % (Auto) Lymph # (Auto) [place] # (Auto) Eos # (Auto) Baso # (Auto) Abs Immat Gran (auto) Absolute Neuts (auto) Absolute Nucleated RBC Nucleated RBC % (auto) Neutrophils % (Manual) Band Neutrophils % Lymphocytes % (Manual) Monocytes % (Manual) Abs Neuts (Manual) Lymphocytes # (Manual) Monocytes # (Manual) Toxic Vacuolation Platelet Estimate Large Platelets Plt Morphology Comment RBC Morphology Smear Tech's Comments PT INR D-Dimer High Sensitivty O2 Saturation 96.0 ABG pH at Pt Temp 7.30 L ABG pCO2 at Pt Temp 53 H ABG pO2 at Pt Temp 94 ABG HCO3 27 H ABG Base Excess (Actual) -0.4 Anion Gap Estim Creat Clear Calc Estimated GFR Random Glucose Lactic Acid Calcium Magnesium Total Bilirubin AST ALT Alkaline Phosphatase B-Natriuretic Peptide Total Protein Albumin Lipase Urine Color Dark Yellow Urine Appearance Cloudy Urine pH 5.5 Ur Specific [place] >= 1.030 H Urine Protein 100 (2+) H Urine Glucose (UA) Negative Urine Ketones Trace Urine Blood Negative Urine Nitrite Negative Ur Leukocyte Esterase Trace H Urine RBC 3-5 H Urine WBC 6-10 H Ur Squamous Epith Cells 6-10 Urine Bacteria 2+ Hyaline Casts 3-5 Salicylates < 5.0 L Urine Opiates Screen Urine Fentanyl Screen Acetaminophen < 17 Ur Barbiturates Screen Ur Phencyclidine Scrn Ur Amphetamines Screen U Benzodiazepines Scrn Urine Cocaine Screen U Marijuana (THC) Screen COVID-19 (WILLIAN) COVID-19 Clin Com 11/09/22 11:59 MCV MCH MCHC RDW Plt Count MPV Immature Gran % (Auto) Neut % (Auto) Lymph % (Auto) [place] % (Auto) Eos % (Auto) Baso % (Auto) Lymph # (Auto) [place] # (Auto) Eos # (Auto) Baso # (Auto) Abs Immat Gran (auto) Absolute Neuts (auto) Absolute Nucleated RBC Nucleated RBC % (auto) Neutrophils % (Manual) Band Neutrophils % Lymphocytes % (Manual) Monocytes % (Manual) Abs Neuts (Manual) Lymphocytes # (Manual) Monocytes # (Manual) Toxic Vacuolation Platelet Estimate Large Platelets Plt Morphology Comment RBC Morphology Smear Tech's Comments PT INR D-Dimer High Sensitivty O2 Saturation ABG pH at Pt Temp ABG pCO2 at Pt Temp ABG pO2 at Pt Temp ABG HCO3 ABG Base Excess (Actual) Anion Gap Estim Creat Clear Calc Estimated GFR Random Glucose Lactic Acid Calcium Magnesium Total Bilirubin AST ALT Alkaline Phosphatase B-Natriuretic Peptide Total Protein Albumin Lipase Urine Color Urine Appearance Urine pH Ur Specific [place] Urine Protein Urine Glucose (UA) Urine Ketones Urine Blood Urine Nitrite Ur Leukocyte Esterase Urine RBC Urine WBC Ur Squamous Epith Cells Urine Bacteria Hyaline Casts Salicylates Urine Opiates Screen POSITIVE H Urine Fentanyl Screen Not Detected Acetaminophen Ur Barbiturates Screen Not Detected Ur Phencyclidine Scrn Not Detected Ur Amphetamines Screen Not Detected U Benzodiazepines Scrn Not Detected Urine Cocaine Screen Not Detected U Marijuana (THC) Screen Not Detected COVID-19 (WILLIAN) COVID-19 Clin Com Imaging Radiologist's Impressions: Impressions Chest X-Ray 11/09/22 09:24 IMPRESSION: Redemonstration of diffuse increased interstitial lung marking and peribronchial cuffing might be a small airway disease such as bronchiolitis or interstitial pneumonitis, versus interstitial lung disease versus interstitial edema. No dense focal consolidation pneumonia. Abdomen/Pelvis CT 11/09/22 11:00 IMPRESSION: * Mucous plugging of right lower lobe bronchi, patchy airspace opacities of the right middle and right lower lobe and trace right pleural effusion. These abnormalities are likely from infectious/inflammatory disease (i.e, pneumonia) rather than an infiltrative neoplastic disease process. Clinical and radiographic follow-up recommended. * Cholelithiasis without cholecystitis. * Diverticulosis of the descending and sigmoid colon without diverticulitis. * No acute abnormalities within the abdomen or pelvis. Chest CT 11/09/22 11:00 IMPRESSION: - Cardiomegaly, pulmonary vascular congestion,. *Diminished lung volume. *Consolidations in the middle lobe and right lower lobe, air bronchogram, the pattern suggests most likely pneumonia. Follow-up recommended to ensure complete clearance and exclude underlying pathology. - Small right pleural effusion. - Enlarged pretracheal lymph node 2 x 1.4 cm, this could be reactive. 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 - Heavy coronary calcification. - Probably hiatal hernia. Head CT 11/09/22 11:00 IMPRESSION: There are scattered chronic small vessel ischemic changes within the periventricular white matter. Otherwise unremarkable examination. No evidence of acute territorial infarct or hemorrhage. Assessment and Plan (1) Hospital-acquired pneumonia: Status: Acute Plan Pt is a 77-year-old female with a PMH significant for?Alzheimer's, HTN, COPD, adjustment disorder, and acute psychosis who presents to the ED from SNF apparently complaining abdominal pain radiating up the right side and shoulders. Patient is a resident of [facility] and not on any home meds, only taking acetaminophen p.r.n. Patient with hx of dementia, is AOx2 at baseline, but currently somnolent and barely arousable to noxious stimuli. Was found to be hypoxic and placed on high-flow. Patient be admitted to the hospital for treatment further evaluation of acute hypoxic respiratory failure in the setting of hospital-acquired pneumonia. Acute hypoxic respiratory failure in the setting of hospital-acquired pneumonia Patient is a resident of [facility] CT of chest with evidence of likely multilobular pneumonia Satting as low as 86% O2 on RA, currently on high-flow Patient meets sepsis criteria: Pneumonia, WBC, tachycardia, tachypnea. Lactic acid WNL Patient given broad-spectrum antibiotics and IVF in ED Will treat with Zosyn, vanco, started 11/09/2022 Continue high-flow, wean as tolerated Monitor on telemetry Hypertensive urgency Patient BP as high as 250/115 Likely secondary to sepsis, pneumonia Patient carries a diagnosis of HTN in her PMH, not currently on any antihypertensives Was given amlodipine in the ED, currently at 163/71 Monitor BP closely Abdominal pain Patient initially presenting to ED with RLQ abdominal pain radiating to right armpit Unclear etiology: CT of abdomen/pelvis negative for acute abdomen, possibly secodary to pneumonia Patient received morphine, hydromorphone, ketamine in the ED Continue analgesics for pain management Elevated D-dimer D-dimer mildly elevated at 463 Given patient's WBC, indication of pneumonia on CT, and lack of A-A gradient, will hold off on CTA for now Elevated troponins Initial troponin 20.4 with repeat down trending at 15.6 Most likely type 2 in the setting of demand ischemia COPD Pt not on home inhalers Will give Solu-Medrol IV Elevated BNP BNP elevated at 380, CT of chest found small right pleural effusion, no lower leg edema Patient given IVF in the ED Patient will be placed on gentle IVF hydration overnight Monitor volume status Diet Patient currently NPO given somnolence, confusion Full Code Attending:?Dr. Peng DVT Prophylaxis: Lovenox Pt will require a hospitalization of at least two nights for treatment of?acute hypoxic respiratory failure in the setting of hospital-acquired pneumonia. Time Spent With Patient Time: Total time managing care of this patient today ____ minutes. Quality Stroke Does the patient have a stroke diagnosis?: No VTE Prior VTE?: No VTE Risk Level:: Medical - moderate - high VTE Device Contraindication: Treatment Not Indicated VTE Drug Contraindication: N/A - Med Ordered
[2022-11-09 12:28] LABS: Troponin-I High Sensitivity 15.6 ng/L (<3.5-17.0)
[2022-11-09] MEDS: Azithromycin 500 MG in 0.9 % Sodium Chloride 250 ML 125 MG IV (12:36)
--- NOTE | 2022-11-09 12:40 | PC.NURSE ---
medication administered per provider order.
--- NOTE | 2022-11-09 12:53 | PC.NURSE ---
provider wants pt goal O2 at 90.%. pt fluctuating between 87%-89%. provider notified and aware. RT notified and states that they will be here shortly to increase pt's high flow.
--- NOTE | 2022-11-09 13:01 | PHA.MEDREC ---
Pharmacy Consult ? Medication Reconciliation Pharmacy has completed the medication reconciliation. Patient from [facility].
--- NOTE | 2022-11-09 13:08 | PC.NURSE ---
RT bedside increasing high flow to 75% and 55.
--- NOTE | 2022-11-09 14:17 | PC.NURSE ---
messaged admitting provider asking if he wants LR hung d/t pt's elevated BNP - awaiting for response.
[2022-11-09] MEDS: methylPREDNISolone Sod Succ 125 MG/2 ML VIAL IVPUSH (14:20)
[2022-11-09] MEDS: Pantoprazole Sodium 40 MG/10 ML VIAL IVPUSH (14:22)
--- NOTE | 2022-11-09 14:29 | PC.NURSE ---
per provider order, LR will be d/c'd for now and held until later tonight.
[2022-11-09] MEDS: Piperacillin Sodium/Tazobactam 4.5 GM in 0.9 % Sodium Chloride 100 ML IV ×2 (14:39→19:48)
[2022-11-09] MEDS: Enoxaparin Sodium 40 MG/0.4 ML SYRINGE SUBCUT (14:39)
--- NOTE | 2022-11-09 14:49 | PC.NURSE ---
medication administered per provider order.
--- NOTE | 2022-11-09 15:03 | PC.NURSE ---
pt ripped out IV in right forearm d/t scratching - 20gIV placed in the left wrist w/o complications. IV wrapped in gauze and secured in KIKE bandage. pt sitting up in bed with icepack applied to RL back. call ricketts placed within reach.
[2022-11-09] MEDS: vancomycin HCL 1,500 MG in 0.9 % Sodium Chloride 500 ML 333.33 MG IV (15:36)
--- NOTE | 2022-11-09 15:43 | PC.NURSE ---
vss up to date in worklist, nsr on the security monitor, medications administered per provider order. pt currently verbalizing 9/10 back pain that started once she woke up. will notify provider. call ricketts placed within reach.
[2022-11-09] MEDS: 0.9 % Sodium Chloride Flush 3 ML SYRINGE IVFLUSH (15:47)
--- NOTE | 2022-11-09 15:58 | PHA.PROG ---
Admission Date/Time: November 09, 2022 13:32 Indication: RESP INFECTION Weight in k.3 kg Adjusted body weight in Kg: [place] body weight in Kg: Obesity Dosing Indication % IBW: Serum Creatinine - Last 168 Hours 11/09/22 09:42 Creatinine 0.86 Estimated CrCl and GFR - Last 168 Hours 11/09/22 09:42 Estim Creat Clear Calc 59.3 Estimated GFR > 60 Vancomycin Loading Dose: 1500 Current Vancomycin Dosing Regimen: 1250Q 24H Vancomycin Monitoring using AUC goal of 400 - 600 range with trough as surrogate marker: AUC 440, TROUGH 10.9 Date and Time for next Vancomycin Level to be drawn: 11/11 @1300 Pharmacist Comments on Vancomycin Plan: Vancomycin dosing will take advantage of [employer] as a clinical decision support tool that uses Bayesian modeling to calculate individual patient's pharmacokinetic parameters and forecast the patient's drug concentration time course with the target goal AUC 24 range of 400 - 600 mg/L/hr.
--- NOTE | 2022-11-09 16:14 | MHC.CM.PN ---
Addendum entered by Hillary Langston 11/09/22 16:20: IT APPEARS PT DOES NOT HAVE MEDICARE CM WILL CONFIRM WITH WHEN CONTACT IS MADE Original Note: CM ATTEMPTED TO CONTACT PTS , [facility], AT [phone], NO ANSWER CM CALLED THE ALT NUMBER LISTED, AND A VM WAS LEFT FOR HIM REQUESTING A RETURN CALL AND DELIVERING PTS MEDICARE RIGHTS PER EMR, PT IS FROM [facility] REFERRAL SENT TO CONFIRM LTC / BED HOLD STATUS MOLST ON FILE PCP: ONEIL GERMAIN DCP: [facility]
--- NOTE | 2022-11-09 16:32 | PC.NURSE ---
messaged admitting provider about pt's request for pain medication. pt states that she has 9/10 back pain and that the PRN Tylenol in the MAR will not help.
--- NOTE | 2022-11-09 17:04 | PC.NURSE ---
medication administered per provider order. tried to reposition pt as she is sitting with a hunched back in tripod position - pt states that she wants to lie down on her back but when attempted to reposition - she refuses. ice pack applied to lower back to alleviate pain. call ricketts within reach.
[2022-11-09] MEDS: Lactated Ringers 1,000 ML 80 ML IVCONT (19:48)
[2022-11-10] VITALS (8 sets, daily range): BP systolic 148–220; BP diastolic 54–100; PULSE 52–97; RESP 16–20; TEMP 36.1–36.9; O2SAT 93–96
[2022-11-10] MEDS: Piperacillin Sodium/Tazobactam 4.5 GM in 0.9 % Sodium Chloride 100 ML IV ×3 (03:25→20:30)
[2022-11-10 05:38] LABS: Hematocrit 39.1 % (37.0-47.0); Hemoglobin 12.7 g/dl (12.0-16.0); Mean Corpuscular HGB Conc 32.5 g/dl (31.0-35.0); Mean Corpuscular Hemoglobin 31.3 pg (27.0-33.0); Mean Corpuscular Volume 96.3 fL (80.0-98.0); Mean Platelet Volume 12.1 fL (9.4-12.3); Platelet Count 210 X10*3/uL (160-400); Red Blood Count 4.06 X10*6/uL (4.20-5.50); Red Cell Distribution Width 14.3 % (11.0-16.0); White Blood Count 23.1 X10*3/uL (4.8-10.8)
[2022-11-10 05:55] LABS: Anion Gap 13 (12-20); Blood Urea Nitrogen 35 mg/dL (9-16); Calcium 9.8 mg/dL (8.4-10.2); Carbon Dioxide 24 mmol/L (22-29); Chloride 105 mmol/L (96-108); Creatinine Clr Calc Pharmacy 61.5; Estimated Glomerular Filt Rate > 60; Glucose Random 156 mg/dL (60-115); Potassium 3.8 mmol/L (3.3-5.1); Sodium 138 mmol/L (135-145)
[2022-11-10] MEDS: Pantoprazole Sodium 40 MG/10 ML VIAL IVPUSH (06:23)
[2022-11-10] MEDS: hydrALAZINE HCl 20 MG/ML VIAL 10 MG IVPUSH ×2 (06:31→20:30)
--- NOTE | 2022-11-10 06:34 | PC.NURSE ---
pt coming up from the ED with agitation, confusion, and hungry. Can I have breakfast, I'm hungry. pt was so confuse. BP 227/90 HR 72, O2 97% with 10 L via NC. RR 20. dr Prado notified, received hydralazine 5mg IVP. given by this nurse. will check at 07:00. CONT monitor s/s.
--- NOTE | 2022-11-10 06:54 | HE.PHANOTE ---
NAE THAO CONTINUE CURRENT DOSE. NEXT LEVEL DUE 11/11 @1300 JANELL
[2022-11-10] MEDS: methylPREDNISolone Sod Succ 125 MG/2 ML VIAL 60 MG IVPUSH (09:07)
[2022-11-10] MEDS: amLODIPine Besylate 5 MG TABLET PO (11:17)
[2022-11-10] MEDS: Morphine Sulfate 4 MG/ML CARTRIDGE IVPUSH ×3 (12:23→21:31)
[2022-11-10] MEDS: Enoxaparin Sodium 40 MG/0.4 ML SYRINGE SUBCUT (12:25)
--- NOTE | 2022-11-10 15:47 | PC.NURSE ---
Bal cath removed at 1130 300mls not complications
[2022-11-10] MEDS: vancomycin HCL 1,250 MG in 0.9 % Sodium Chloride 250 ML 166.67 MG IV (16:05)
--- NOTE | 2022-11-10 16:22 | P.PNIM_ITS ---
Subjective Subjective Date of Service: 11/11/22 Interval History: Resting comfortably, easily arousable, does not communicate keep yelling for help, unable to obtain meaningful history due to underlying dementia, oxygenation stable 94- 95%, will wean O2. Review of Systems Unable to obtain due to mental status Physical Exam Vital Signs: Vital Signs: Last Vital Signs Temp 98.4 F 11/10/22 15:19 Pulse 67 11/10/22 15:19 Resp 18 11/10/22 15:19 BP 188/78 H 11/10/22 15:19 Pulse Ox 94 11/10/22 15:19 O2 Del Method Nasal Cannula 11/10/22 15:19 O2 Flow Rate 10 11/10/22 15:19 BMI result Body Mass Index 27.5 Const: Other: General somnolent arousable to verbal stimuli , in no acute distress Neck supple no JVD. CVS regular rate rhythm, Respiratory lungs coarse breath sound, no wheeze, no crackles, no respiratory distress ,no use of accessory muscles. Gastrointestinal abdomen soft, non tender, bowel sounds audible, no guarding , no rigidity. Extremities no edema. Neuro moving all 4 extremity Skin no rash Objective Data Active Medications Acetaminophen (Acetaminophen 325 Mg Tablet) 650 mg PO Q6H PRN PRN Reason: Pain, Mild (Pain Scale 1-3) Amlodipine Besylate (Amlodipine Besylate 5 Mg Tablet) 5 mg PO DAILY COUNTS INCLUDE 234 BEDS AT THE [facility]; Protocol Last Admin: 11/10/22 11:17 Dose: 5 mg Documented By: CODY Docusate Sodium (Docusate Sodium 100 Mg Capsule) 100 mg PO DAILY PRN PRN Reason: Constipation Enoxaparin Sodium (Enoxaparin Sodium 40 Mg/0.4 Ml Syringe) 40 mg SUBCUT Q24H COUNTS INCLUDE 234 BEDS AT THE [facility] Last Admin: 11/10/22 12:25 Dose: 40 mg Documented By: CODY Piperacillin Sod/Tazobactam (Sod 4.5 gm/ Sodium Chloride) 100 mls @ 200 mls/hr IV Q6H COUNTS INCLUDE 234 BEDS AT THE [facility] Last Infusion: 11/10/22 10:03 Dose: 200 mls/hr Documented By: CODY Vancomycin HCl 1,250 mg/ (Sodium Chloride) 250 mls @ 166.667 mls/hr IV Q24H COUNTS INCLUDE 234 BEDS AT THE [facility] Last Admin: 11/10/22 16:05 Dose: 166.67 mls/hr Documented By: TADEO Morphine Sulfate (Morphine Sulfate 4 Mg/Ml Cartridge) 4 mg IVPUSH Q4H PRN; Protocol PRN Reason: Pain, Severe (Pain Scale 7-10) Last Admin: 11/10/22 12:23 Dose: 4 mg Documented By: CODY Ondansetron HCl (Ondansetron Hcl 4 Mg/2 Ml Vial) 4 mg IVPUSH Q8H PRN PRN Reason: Nausea and Vomiting Pharmacy Consult (Consult Rx Vancomycin Dosing) 1 each MISCELLANE DAILY PRN PRN Reason: Consult order Sodium Chloride (0.9 % Sodium Chloride Flush 3 Ml Syringe) 3 ml IVFLUSH QSHIFT COUNTS INCLUDE 234 BEDS AT THE [facility] Last Admin: 11/10/22 09:08 Dose: Not Given Documented By: CODY Non-Admin Reason: IV Running Labs 11/10/22 05:30 11/10/22 05:30 Labs: Laboratory Results - last 24 hr 11/10/22 11/10/22 05:30 05:30 MCV 96.3 MCH 31.3 MCHC 32.5 RDW 14.3 Plt Count 210 MPV 12.1 Absolute Nucleated RBC 0.000 Nucleated RBC % (auto) 0.0 Anion Gap 13 Estim Creat Clear Calc 61.5 Estimated GFR > 60 Random Glucose 156 H Calcium 9.8 Microbiology Microbiology Results: Microbiology 11/09/22 Unknown Urine Culture - Final Urine clean catch - Urine ely top No growth. 11/09/22 08:36 Blood Culture - Preliminary Blood - Venous No growth after 24 hours. 11/09/22 08:35 Blood Culture - Preliminary Blood - Venous No growth after 24 hours. Assessment and Plan (1) Hospital-acquired pneumonia: Status: Acute (2) Sepsis: Status: Acute (3) Abdominal pain: Status: Acute (4) Acute UTI: Status: Acute Plan Pt is a 77-year-old female with a PMH significant for?Alzheimer's, HTN, COPD, adjustment disorder, and acute psychosis who presents to the ED from SNF apparently complaining abdominal pain radiating up the right side and shoulders.? Patient is a resident of [facility] and not on any home meds, only taking acetaminophen p.r.n. Patient with hx of dementia, is AOx2 at baseline, but currently somnolent and barely arousable to noxious stimuli.? Was found to be hypoxic and placed on high-flow.? Patient be admitted to the hospital for treatment further evaluation of acute hypoxic respiratory failure in the setting of hospital-acquired pneumonia. Acute hypoxic respiratory failure in the setting of sepsis due to hospital- acquired pneumonia Sleeping comfortably, easily arousable in no acute distress CT of chest with evidence of multilobular pneumonia Satting 94% on 10 L will wean oxygen as tolerated,patient not on home O2 Patient meets sepsis criteria:? Pneumonia, WBC, tachycardia, tachypnea.? Lactic acid WNL continue IV Zosyn, vanco, started 11/09/2022 follow blood cultures, WBC trending down, follow CBC placed on regular diet with thin liquids. UA positive continue IV antibiotic as above follow urine culture Hypertensive urgency Patient BP as high as 250/115 in ED, patient not on antihypertensive at home continue amlodipine 5 mg daily Monitor BP closely Abdominal pain Patient initially presenting to ED with RLQ abdominal pain radiating to right armpit Unclear etiology: CT of abdomen/pelvis negative for acute abdomen, possibly secodary to pneumonia Patient received morphine, hydromorphone, ketamine in the ED Continue analgesics for pain management Elevated D-dimer D-dimer mildly elevated at 463 Given patient's WBC, indication of pneumonia on CT, and lack of A-A gradient,hold off on CTA for now, follow clinical course Elevated troponins Initial troponin 20.4 with repeat down trending at 15.6, Most likely type 2 in the setting of demand ischemia due to hypoxia COPD Pt not on home inhalers, will DC IV steroids, no evidence of COPD exacerbation. Elevated BNP BNP elevated at 380, CT of chest found small right pleural effusion, noted to have no evidence of CHF, follow clinical course Full Code DVT Prophylaxis: Lovenox Pt will require continued inpatient hospitalization for?acute hypoxic respiratory failure in the setting of hospital-acquired pneumonia. Time Spent With Patient Time: Total time managing care of this patient today ____ minutes. Quality Stroke Does the patient have a stroke diagnosis?: No VTE Prior VTE?: No VTE Risk Level:: Medical - moderate - high VTE Device Contraindication: Treatment Not Indicated VTE Drug Contraindication: N/A - Med Ordered
[2022-11-10] MEDS: 0.9 % Sodium Chloride Flush 3 ML SYRINGE IVFLUSH ×2 (17:13→20:31)
--- NOTE | 2022-11-10 19:22 | PC.NURSE ---
At 1645 patient attempted to get out of bed, patient was confused stating she wanted to go home or at least walk around, was aware she is in the hospital but did not want to stay in bed. Kept repeating that she needs help, was complaining of being uncomfortable but refused to get help reposition. Patient was insisting on getting out of bed, yelling out for help. Liner Replacer notified, patient was assigned 1:1 sitter.
[2022-11-11] VITALS (7 sets, daily range): BP systolic 158–220; BP diastolic 54–89; PULSE 64–83; RESP 17–20; TEMP 36–36.7; O2SAT 92–96
[2022-11-11] MEDS: Morphine Sulfate 4 MG/ML CARTRIDGE IVPUSH ×2 (01:41→06:49)
[2022-11-11] MEDS: Piperacillin Sodium/Tazobactam 4.5 GM in 0.9 % Sodium Chloride 100 ML IV ×4 (04:29→23:11)
[2022-11-11 05:28] LABS: Hematocrit 39.5 % (37.0-47.0); Hemoglobin 12.5 g/dl (12.0-16.0); Mean Corpuscular HGB Conc 31.6 g/dl (31.0-35.0); Mean Corpuscular Hemoglobin 30.7 pg (27.0-33.0); Mean Corpuscular Volume 97.1 fL (80.0-98.0); Mean Platelet Volume 12.7 fL (9.4-12.3); Platelet Count 203 X10*3/uL (160-400); Red Blood Count 4.07 X10*6/uL (4.20-5.50); Red Cell Distribution Width 14.3 % (11.0-16.0); White Blood Count 21.4 X10*3/uL (4.8-10.8)
[2022-11-11 05:43] LABS: Creatinine Clr Calc Pharmacy 65.4; Estimated Glomerular Filt Rate > 60
[2022-11-11] MEDS: 0.9 % Sodium Chloride Flush 3 ML SYRINGE IVFLUSH ×3 (09:40→23:11)
[2022-11-11] MEDS: amLODIPine Besylate 5 MG TABLET PO (09:48)
[2022-11-11] MEDS: hydrALAZINE HCl 25 MG TABLET PO ×3 (09:48→23:00)
--- NOTE | 2022-11-11 11:29 | P.PNIM_ITS ---
Subjective Subjective Date of Service: 11/11/22 Interval History: Awake alert this morning keep yelling help help trying to take out oxygen, unable to obtain meaningful history, asking for food, noted to have elevated systolic blood pressures in 200 range, no acute events overnight. No fevers, no chills Review of Systems Unable to obtain meaningful history due to underlying dementia Physical Exam Vital Signs: Vital Signs: Last Vital Signs Temp 97.6 F 11/11/22 07:08 Pulse 71 11/11/22 07:08 Resp 18 11/11/22 07:08 BP 220/89 H 11/11/22 07:08 Pulse Ox 95 11/11/22 07:08 O2 Del Method Nasal Cannula 11/11/22 07:08 O2 Flow Rate 6 11/11/22 07:08 BMI result Body Mass Index 27.5 Const: Other: General? awake michel rt , in no acute d istress Neck suppl e no JVD. CVS? reg ular rate rhythm, Respiratory lungs? coarse breath kimi nd, no wheeze, no crackles, no respi ratory distress ,n o use of accessory muscles. Gastroin testinal abdomen s oft, non tender, b owel sounds audibl e, no guarding , n o rigidity. Extrem ities no? edema. N euro moving all 4 extremity, speech clear Skin no rash Objective Data Active Medications Acetaminophen (Acetaminophen 325 Mg Tablet) 650 mg PO Q6H PRN PRN Reason: Pain, Mild (Pain Scale 1-3) Amlodipine Besylate (Amlodipine Besylate 5 Mg Tablet) 5 mg PO DAILY [facility]; Protocol Last Admin: 11/11/22 09:48 Dose: 5 mg Documented By: TADEO Docusate Sodium (Docusate Sodium 100 Mg Capsule) 100 mg PO DAILY PRN PRN Reason: Constipation Enoxaparin Sodium (Enoxaparin Sodium 40 Mg/0.4 Ml Syringe) 40 mg SUBCUT Q24H [facility] Last Admin: 11/10/22 12:25 Dose: 40 mg Documented By: CODY Hydralazine HCl (Hydralazine Hcl 25 Mg Tablet) 25 mg PO TID [facility]; Protocol Last Admin: 11/11/22 09:48 Dose: 25 mg Documented By: TADEO Piperacillin Sod/Tazobactam (Sod 4.5 gm/ Sodium Chloride) 100 mls @ 200 mls/hr IV Q6H [facility] Last Infusion: 11/11/22 10:29 Dose: 0 mls/hr Documented By: TADEO Vancomycin HCl 1,250 mg/ (Sodium Chloride) 250 mls @ 166.667 mls/hr IV Q24H [facility] Last Infusion: 11/10/22 19:13 Dose: 0 mls/hr Documented By: TADEO Ondansetron HCl (Ondansetron Hcl 4 Mg/2 Ml Vial) 4 mg IVPUSH Q8H PRN PRN Reason: Nausea and Vomiting Pharmacy Consult (Consult Rx Vancomycin Dosing) 1 each MISCELLANE DAILY PRN PRN Reason: Consult order Sodium Chloride (0.9 % Sodium Chloride Flush 3 Ml Syringe) 3 ml IVFLUSH QSHIFT [facility] Last Admin: 11/11/22 09:40 Dose: 3 ml Documented By: TADEO Labs 11/11/22 05:09 11/11/22 05:09 Labs: Laboratory Results - last 24 hr 11/11/22 11/11/22 05:09 05:09 MCV 97.1 MCH 30.7 MCHC 31.6 RDW 14.3 Plt Count 203 MPV 12.7 H Absolute Nucleated RBC 0.000 Nucleated RBC % (auto) 0.0 Estim Creat Clear Calc 65.4 Estimated GFR > 60 Microbiology Microbiology Results: Microbiology 11/09/22 08:36 Blood Culture - Preliminary Blood - Venous No growth after 48 hours. 11/09/22 08:35 Blood Culture - Preliminary Blood - Venous No growth after 48 hours. 11/09/22 Unknown Urine Culture - Final Urine clean catch - Urine ely top No growth. Assessment and Plan (1) Hospital-acquired pneumonia: Status: Acute (2) Sepsis: Status: Acute (3) Abdominal pain: Status: Acute (4) Acute UTI: Status: Acute Plan Pt is a 77-year-old female with a PMH significant for?Alzheimer's, HTN, COPD, adjustment disorder, and acute psychosis who presents to the ED from SNF apparently complaining abdominal pain radiating up the right side and shoulders.? Patient is a resident of [facility] and not on any home meds, only taking acetaminophen p.r.n. Patient with hx of dementia, is AOx2 at [facility], but currently somnolent and barely arousable to noxious stimuli.? Was found to be hypoxic and placed on high-flow.? Patient be admitted to the hospital for treatment further evaluation of acute hypoxic respiratory failure in the setting of hospital-acquired pneumonia. Acute hypoxic respiratory failure in the setting of sepsis due to hospital- acquired pneumonia Sleeping comfortably, in no acute distress, no coughing CT of chest with evidence of multilobular pneumonia Satting 94% on 6 L will wean oxygen as tolerated,patient not on home O2 WBC trending down, persistent elevated WBC likely due to recent steroid continue IV Zosyn, vanco, started 11/09/2022 , blood cultures negative times 48 hours since no prior history of MRSA and negative blood cultures will DC IV vancomycin on regular diet with thin liquids. UA positive , no UTI urine cultures negative. Hypertensive urgency Patient BP as high as 250/115 in ED, patient not on antihypertensive at home continue amlodipine 5 mg daily, since BP remains elevated will place on hydralazine 25 t.i.d. Abdominal pain Patient initially presenting to ED with RLQ abdominal pain radiating to right armpit Unclear etiology: CT of abdomen/pelvis negative for acute abdomen, possibly secodary to pneumonia No complain of abdominal pain will DC IV morphine Elevated D-dimer D-dimer mildly elevated at 463 Given patient's WBC, indication of pneumonia on CT, and lack of A-A gradient,hold off on CTA for now, since clinically improving will hold off on further studies Elevated troponins Initial troponin 20.4 with repeat down trending at 15.6, Most likely type 2 in the setting of demand ischemia due to hypoxia COPD Pt not on home inhalers, no evidence of COPD exacerbation. Elevated BNP BNP elevated at 380, CT of chest found small right pleural effusion, noted to have no evidence of CHF, follow clinical course Full Code DVT Prophylaxis: Lovenox Pt will require continued inpatient hospitalization for?acute hypoxic respiratory failure in the setting of hospital-acquired pneumonia. Time Spent With Patient Time: Total time managing care of this patient today ____ minutes. Quality Stroke Does the patient have a stroke diagnosis?: No VTE Prior VTE?: No VTE Risk Level:: Medical - moderate - high VTE Device Contraindication: Treatment Not Indicated VTE Drug Contraindication: N/A - Med Ordered
[2022-11-11] MEDS: Acetaminophen 325 MG TABLET 650 MG PO (11:41)
[2022-11-11 13:25] LABS: Vancomycin Random 11.5 mcg/mL (15-20)
[2022-11-11] MEDS: Enoxaparin Sodium 40 MG/0.4 ML SYRINGE SUBCUT (16:40)
[2022-11-11] MEDS: Valproic Acid (as Sodium Salt) 250 MG in Dextrose 5 % 50 ML 52.5 MG IV (18:55)
[2022-11-11] MEDS: OLANZapine 10 MG VIAL 5 MG IM (19:22)
--- NOTE | 2022-11-11 19:50 | PC.NURSE ---
Patient agitated on and off all day, Morphine d/c and tylenol PRN ordered, patient did not c/o of pain, was confused and constantly trying to get out of bed. Had 1:1 sitter all day, very impulsive, agitated, yelling out for help but unable to stay what she needs. Taking NC off when agitated, 2L NC when resting. MD was notified of patient's agitation and disorientation as it was getting worse.
[2022-11-12] VITALS (7 sets, daily range): BP systolic 139–225; BP diastolic 66–109; PULSE 68–85; RESP 16–20; TEMP 36.2–37.4; O2SAT 88–92
[2022-11-12] MEDS: Piperacillin Sodium/Tazobactam 4.5 GM in 0.9 % Sodium Chloride 100 ML IV ×4 (03:50→21:01)
--- NOTE | 2022-11-12 04:23 | PC.NURSE ---
190: Handover received from prior RN and acquired care of pt. Pt. very agitated and restless yelling I gotta go home, help me pt. unable to be deescalated by staff and singing to her. Pt. began to push staff. Reported these findings to Dr. Duncan at ~ 0 and as per one-time order pt. received 5mg IM Zyprexa in right thigh with effectiveness. Pt. with decreased agitation and allowing care/VS and less yelling out. BP at 1999 was 183/69. Pt. tenses arm with machine BP check. Pt. received scheduled eveniing dose of oral Hydralazine late (SEE MAY) d/t pt.'s agitation and then sleepiness. Manual BP tolerated better by patient. 1:1 sitter remains at bedside with bed alarms and camera in use. Pt. required new IV this shift d/t iv leaking. Pt. NSR with occasional PVC s and PAC's on lunchroom monitor. Pt. frequently pulls off oxygen; RA O2 sat at 20:00 was 94% at rest. O2 sat on 2L NC at 2334 was 94% at rest. At 0400 O2 sat on RA was 88%. Pt. allowing O2 on at 2L and sat's 91%.
[2022-11-12 07:16] LABS: Hematocrit 41.9 % (37.0-47.0); Hemoglobin 13.4 g/dl (12.0-16.0); Mean Corpuscular Hemoglobin 30.7 pg (27.0-33.0); Mean Corpuscular Volume 96.1 fL (80.0-98.0); Mean Platelet Volume 11.9 fL (9.4-12.3); Platelet Count 284 X10*3/uL (160-400); Red Blood Count 4.36 X10*6/uL (4.20-5.50); Red Cell Distribution Width 14.5 % (11.0-16.0); White Blood Count 18.8 X10*3/uL (4.8-10.8)
[2022-11-12 07:47] LABS: Thyroid Stimulating Hormone 0.74 uIU/mL (0.32-4.0)
[2022-11-12] MEDS: Acetaminophen 325 MG TABLET 650 MG PO (08:21)
[2022-11-12] MEDS: amLODIPine Besylate 5 MG TABLET PO (08:21)
[2022-11-12] MEDS: hydrALAZINE HCl 25 MG TABLET PO ×2 (08:21→17:35)
[2022-11-12] MEDS: 0.9 % Sodium Chloride Flush 3 ML SYRINGE IVFLUSH ×2 (08:22→16:32)
--- NOTE | 2022-11-12 10:18 | MHC.CM.PN ---
Per ROUNDS discussion, Patient is not yet medically cleared for dc (IV Zosyn/PNA); Patient's goal is to return to LTC @ [facility]. CM will follow.
--- NOTE | 2022-11-12 14:01 | P.PNIM_ITS ---
Subjective Subjective Date of Service: 11/12/22 Interval History: Unable to obtain meaningful history patient remains somnolent at times wakes up for few minutes refusing to eat, events from last night noted patient required Zyprexa 5 mg IM for agitation and restlessness, BP better controlled this morning on 2 L of oxygen finger oximetry 91-94%. Review of Systems Unable to obtain review of system due to mental status Physical Exam Vital Signs: Vital Signs: Last Vital Signs Temp 97.8 F 11/12/22 12:00 Pulse 76 11/12/22 12:00 Resp 20 11/12/22 12:00 BP 180/90 H 11/12/22 12:00 Pulse Ox 91 L 11/12/22 12:00 O2 Del Method Room Air 11/12/22 12:00 O2 Flow Rate 2 11/12/22 07:11 BMI result Body Mass Index 27.5 Const: Other: General? somnolent arousable to verbal stimuli , in no acute distress Neck supple no JVD. CVS? regular rate rhythm, Respiratory lungs? coarse breath sound, no wheeze, no crackles, no respiratory distress ,no use of accessory muscles. Gastrointestinal abdomen soft, non tender, bowel sounds audible, no guarding , no rigidity. Extremities no? edema. Neuro moving all 4 extremity Skin no rash Objective Data Active Medications Acetaminophen (Acetaminophen 325 Mg Tablet) 650 mg PO Q6H PRN PRN Reason: Pain, Mild (Pain Scale 1-3) Last Admin: 11/12/22 08:21 Dose: 650 mg Documented By: TADEO Amlodipine Besylate (Amlodipine Besylate 5 Mg Tablet) 5 mg PO DAILY [facility]; Protocol Last Admin: 11/12/22 08:21 Dose: 5 mg Documented By: TADEO Divalproex Sodium (Divalproex Sodium Er 250 Mg Tab.Er.24h) 250 mg PO DAILY [facility] Last Admin: 11/12/22 13:58 Dose: Not Given Documented By: TADEO Non-Admin Reason: unable to crush meds Docusate Sodium (Docusate Sodium 100 Mg Capsule) 100 mg PO DAILY PRN PRN Reason: Constipation Enoxaparin Sodium (Enoxaparin Sodium 40 Mg/0.4 Ml Syringe) 40 mg SUBCUT Q24H [facility] Last Admin: 11/11/22 16:40 Dose: 40 mg Documented By: TADEO Hydralazine HCl (Hydralazine Hcl 25 Mg Tablet) 25 mg PO TID [facility]; Protocol Last Admin: 11/12/22 08:21 Dose: 25 mg Documented By: TADEO Piperacillin Sod/Tazobactam (Sod 4.5 gm/ Sodium Chloride) 100 mls @ 200 mls/hr IV Q6H [facility] Last Infusion: 11/12/22 11:20 Dose: 0 mls/hr Documented By: TADEO Ondansetron HCl (Ondansetron Hcl 4 Mg/2 Ml Vial) 4 mg IVPUSH Q8H PRN PRN Reason: Nausea and Vomiting Quetiapine Fumarate (Quetiapine Fumarate 25 Mg Tablet) 25 mg PO 1700 [facility] Sodium Chloride (0.9 % Sodium Chloride Flush 3 Ml Syringe) 3 ml IVFLUSH QSHIFT [facility] Last Admin: 11/12/22 08:22 Dose: 3 ml Documented By: TADEO Labs 11/12/22 06:38 11/11/22 05:09 Labs: Laboratory Results - last 24 hr 11/12/22 11/12/22 06:38 06:38 MCV 96.1 MCH 30.7 MCHC 32.0 RDW 14.5 Plt Count 284 D MPV 11.9 Absolute Nucleated RBC 0.000 Nucleated RBC % (auto) 0.0 TSH 0.74 Microbiology Microbiology Results: Microbiology 11/09/22 08:36 Blood Culture - Preliminary Blood - Venous No growth after 48 hours. 11/09/22 08:35 Blood Culture - Preliminary Blood - Venous No growth after 48 hours. Assessment and Plan (1) Hospital-acquired pneumonia: Status: Acute (2) Sepsis: Status: Acute (3) Abdominal pain: Status: Acute (4) Acute UTI: Status: Acute Plan Pt is a 77-year-old female with a PMH significant for?Alzheimer's, HTN, COPD, adjustment disorder, and acute psychosis who presents to the ED from SNF apparently complaining abdominal pain radiating up the right side and shoulders.? Patient is a resident of [facility] and not on any home meds, only taking acetaminophen p.r.n. Patient with hx of dementia, is AOx2 at [facility], but currently somnolent and barely arousable to noxious stimuli.? Was found to be hypoxic and placed on high-flow.? Patient be admitted to the hospital for treatment further evaluation of acute hypoxic respiratory failure in the setting of hospital-acquired pneumonia. Acute hypoxic respiratory failure in the setting of sepsis due to hospital- acquired pneumonia Remains confused, restless, in no acute distress, no coughing CT of chest with evidence of multilobular pneumonia Satting 94% on 2 L will wean oxygen as tolerated,patient not on home O2 persistent elevated WBC likely due to recent steroid continue IV Zosyn, vanco, started 11/09/2022 , blood cultures negative times 48 hours since no prior history of MRSA and negative blood cultures will DC IV vancomycin on regular diet with thin liquids. Spoke with Cyndy at nursing facility according to them patient was eating fine, had high blood pressures but was not taking any medications. UA positive , no UTI urine cultures negative. Hypertensive urgency Patient BP as high as 250/115 in ED, patient not on antihypertensive at home, continue amlodipine 5 mg daily, hydralazine 25 mg t.i.d. with better blood press ure control . Abdominal pain Patient initially presenting to ED with RLQ abdominal pain radiating to right armpit Unclear etiology: CT of abdomen/pelvis negative for acute abdomen, possibly secodary to pneumonia No complain of abdominal pain Elevated D-dimer D-dimer mildly elevated at 463 Given patient's WBC, indication of pneumonia on CT, and lack of A-A gradient,hold off on CTA for now, since clinically improving will hold off on further studies Elevated troponins Initial troponin 20.4 with repeat down trending at 15.6, Most likely type 2 in the setting of demand ischemia due to hypoxia COPD Pt not on home inhalers, no evidence of COPD exacerbation. Elevated BNP BNP elevated at 380, CT of chest found small right pleural effusion, noted to have no evidence of CHF, follow clinical course Alzheimer's dementia/adjustment disorder , history of psychosis, at present patient seems to be restless, with baseline confusion, placed on Depakote at a.m. and Seroquel 25 mg at p.m. follow clinical course Consult psych if no improvement Full Code DVT Prophylaxis: Lovenox Pt will require continued inpatient hospitalization for?acute hypoxic respiratory failure in the setting of hospital-acquired pneumonia. Time Spent With Patient Time: Total time managing care of this patient today ____ minutes. Quality Stroke Does the patient have a stroke diagnosis?: No VTE Prior VTE?: No VTE Risk Level:: Medical - moderate - high VTE Device Contraindication: Treatment Not Indicated VTE Drug Contraindication: N/A - Med Ordered
[2022-11-12] MEDS: QUEtiapine Fumarate 25 MG TABLET PO (17:35)
[2022-11-12] MEDS: hydrALAZINE HCl 20 MG/ML VIAL 5 MG IVPUSH (19:14)
[2022-11-12] MEDS: OLANZapine 10 MG VIAL 5 MG IM (22:46)
[2022-11-13] MEDS: Piperacillin Sodium/Tazobactam 4.5 GM in 0.9 % Sodium Chloride 100 ML IV ×4 (03:20→20:51)
[2022-11-13 04:00] VITALS: BP 140/69; PULSE 79; RESP 20; TEMP 38.5; O2SAT 94
[2022-11-13 05:40] LABS: Hematocrit 40.2 % (37.0-47.0); Mean Corpuscular HGB Conc 32.3 g/dl (31.0-35.0); Mean Corpuscular Hemoglobin 30.9 pg (27.0-33.0); Mean Corpuscular Volume 95.5 fL (80.0-98.0); Mean Platelet Volume 11.6 fL (9.4-12.3); Platelet Count 259 X10*3/uL (160-400); Red Blood Count 4.21 X10*6/uL (4.20-5.50); Red Cell Distribution Width 14.3 % (11.0-16.0); White Blood Count 13.8 X10*3/uL (4.8-10.8)
[2022-11-13 06:07] LABS: Anion Gap 12 (12-20); Blood Urea Nitrogen 17 mg/dL (9-16); Calcium 8.7 mg/dL (8.4-10.2); Carbon Dioxide 24 mmol/L (22-29); Chloride 107 mmol/L (96-108); Estimated Glomerular Filt Rate > 60; Glucose Random 101 mg/dL (60-115); Potassium 3.3 mmol/L (3.3-5.1); Sodium 140 mmol/L (135-145)
[2022-11-13 07:12] VITALS: BP 136/63; PULSE 78; RESP 22; TEMP 37; O2SAT 90
[2022-11-13] MEDS: Divalproex Sodium Sprinkles 125 MG CAP.DR.SPR 250 MG PO (09:10)
[2022-11-13] MEDS: hydrALAZINE HCl 25 MG TABLET PO (09:10)
[2022-11-13] MEDS: 0.9 % Sodium Chloride Flush 3 ML SYRINGE IVFLUSH ×2 (09:11→16:14)
[2022-11-13] MEDS: amLODIPine Besylate 5 MG TABLET PO (09:11)
[2022-11-13] MEDS: LORazepam 2 MG/ML VIAL 0.5 MG IVPUSH (09:52)
--- NOTE | 2022-11-13 10:40 | HO.PM.IMPN ---
Subjective Subjective Date of Service: 11/13/22 Interval History: resting comfortably this a.m. later woke up noted to be anxious confused tele monitor showed tachycardia, unable to provide meaningful history a times take meds crushed in applesauce otherwise refuses. Review of Systems unable to obtain meaningful history. Physical Exam Vital Signs: Vital Signs: Last Vital Signs Temp 98.6 F 11/13/22 07:12 Pulse 78 11/13/22 07:12 Resp 22 H 11/13/22 07:12 BP 136/63 11/13/22 07:12 Pulse Ox 90 L 11/13/22 07:12 O2 Del Method Nasal Cannula 11/13/22 07:12 O2 Flow Rate 2 11/13/22 07:12 BMI result Body Mass Index 27.5 Const: Other: General? resting comfortably , in no acute distress Neck supple no JVD. CVS? regular rate rhythm, Respiratory lungs? coarse breath sound, no wheeze, no crackles, no respiratory distress ,no use of accessory muscles. Gastrointestinal abdomen soft, non tender, bowel sounds audible, no guarding , no rigidity. Extremities no? edema. Neuro move all 4 extremity when awake Skin no rash Objective Data Active Medications Acetaminophen (Acetaminophen 325 Mg Tablet) 650 mg PO Q6H PRN PRN Reason: Pain, Mild (Pain Scale 1-3) Last Admin: 11/12/22 08:21 Dose: 650 mg Documented By: TADEO Amlodipine Besylate (Amlodipine Besylate 5 Mg Tablet) 5 mg PO DAILY [facility]; Protocol Last Admin: 11/13/22 09:11 Dose: 5 mg Documented By: PASTOR Divalproex Sodium (Divalproex Sodium Sprinkles 125 Mg ) 250 mg PO DAILY [facility] Last Admin: 11/13/22 09:10 Dose: 250 mg Documented By: PASTOR Docusate Sodium (Docusate Sodium 100 Mg Capsule) 100 mg PO DAILY PRN PRN Reason: Constipation Enoxaparin Sodium (Enoxaparin Sodium 40 Mg/0.4 Ml Syringe) 40 mg SUBCUT Q24H [facility] Last Admin: 11/12/22 15:05 Dose: Not Given Documented By: TADEO Non-Admin Reason: Patient Refused Hydralazine HCl (Hydralazine Hcl 25 Mg Tablet) 25 mg PO TID [facility]; Protocol Last Admin: 11/13/22 09:10 Dose: 25 mg Documented By: PASTOR Piperacillin Sod/Tazobactam (Sod 4.5 gm/ Sodium Chloride) 100 mls @ 200 mls/hr IV Q6H [facility] Last Infusion: 11/13/22 09:42 Dose: 0 mls/hr Documented By: PASTOR Ondansetron HCl (Ondansetron Hcl 4 Mg/2 Ml Vial) 4 mg IVPUSH Q8H PRN PRN Reason: Nausea and Vomiting Quetiapine Fumarate (Quetiapine Fumarate 25 Mg Tablet) 25 mg PO 1700 [facility] Last Admin: 11/12/22 17:35 Dose: 25 mg Documented By: JESSIE Sodium Chloride (0.9 % Sodium Chloride Flush 3 Ml Syringe) 3 ml IVFLUSH QSHIFT [facility] Last Admin: 11/13/22 09:11 Dose: 3 ml Documented By: PASTOR Labs 11/13/22 05:19 11/13/22 05:19 Labs: Laboratory Results - last 24 hr 11/13/22 11/13/22 05:19 05:19 MCV 95.5 MCH 30.9 MCHC 32.3 RDW 14.3 Plt Count 259 MPV 11.6 Absolute Nucleated RBC 0.000 Nucleated RBC % (auto) 0.0 Anion Gap 12 Estim Creat Clear Calc 88.0 Estimated GFR > 60 Random Glucose 101 Calcium 8.7 D Assessment and Plan (1) Hospital-acquired pneumonia: Status: Acute (2) Sepsis: Status: Acute (3) Abdominal pain: Status: Acute (4) Acute UTI: Status: Acute Plan Pt is a 77-year-old female with a PMH significant for?Alzheimer's, HTN, COPD, adjustment disorder, and acute psychosis who presents to the ED from SNF apparently complaining abdominal pain radiating up the right side and shoulders.? Patient is a resident of [facility] and not on any home meds, only taking acetaminophen p.r.n. Patient with hx of dementia, is AOx2 at baseline, but currently somnolent and barely arousable to noxious stimuli.? Was found to be hypoxic and placed on high-flow.? Patient be admitted to the hospital for treatment further evaluation of acute hypoxic respiratory failure in the setting of hospital-acquired pneumonia. Acute hypoxic respiratory failure in the setting of sepsis due to hospital-acquired pneumonia Remains confused likely baseline due to dementia, restless, in no acute distress, no coughing noted to have isolated fever 101.3 last night will repeat chest x-ray and UA no fevers this morning CT of chest with evidence of multilobular pneumonia Satting 94% on 2 L will wean oxygen as tolerated,patient not on home O2 WBC gradually trending down, some component of leukocytosis likely due to recent steroid on IV Zosyn, started 11/09/2022 ,day 07/20 , blood cultures negative times 48 hours since no prior history of MRSA and negative blood cultures Vancomycin iv discontinued after 3 days on regular diet with thin liquids. Spoke with Nurse at nursing facility according to them patient was eating fine, had high blood pressures, has baseline confusion and was not on any psych medications. UA positive , no UTI urine cultures negative. Hypertensive urgency Patient BP as high as 250/115 at admission, patient not on antihypertensive at home, started on amlodipine 5 mg and hydralazine 25 mg t.i.d. , since patient refuses medications will change to losartan 100 mg at a.m. and DC hydralazine Abdominal pain Patient initially presenting to ED with RLQ abdominal pain radiating to right armpit Unclear etiology: CT of abdomen/pelvis negative for acute abdomen, possibly secodary to pneumonia No complain of abdominal pain Elevated troponins Initial troponin 20.4 with repeat down trending at 15.6, Most likely type 2 in the setting of demand ischemia due to hypoxia COPD Pt not on home inhalers, no evidence of COPD exacerbation. Elevated BNP BNP elevated at 380, CT of chest found small right pleural effusion, noted to have no evidence of CHF, follow clinical course likely due to pneumonia Alzheimer's dementia/adjustment disorder , history of psychosis, with baseline confusion noted to have restlessness/ anxiety placed on Depakote at a.m. and Seroquel 25 mg at p.m. follow clinical course Consult psych if no improvement. Full Code DVT Prophylaxis: Lovenox Pt will require continued inpatient hospitalization for?acute hypoxic respiratory failure in the setting of hospital-acquired pneumonia. will discharge back to custodial if no recurrent fevers in next 24 hours on oral antibiotics antihypertensive and current psychiatric medications. Time Spent With Patient Time: Total time managing care of this patient today ____ minutes. Quality Stroke Does the patient have a stroke diagnosis?: No VTE Prior VTE?: No VTE Risk Level:: Medical - moderate - high VTE Device Contraindication: Treatment Not Indicated VTE Drug Contraindication: N/A - Med Ordered
[2022-11-13 11:38] VITALS: BP 140/91; PULSE 72; RESP 22; TEMP 36.2; O2SAT 92
[2022-11-13] MEDS: Enoxaparin Sodium 40 MG/0.4 ML SYRINGE SUBCUT (13:04)
[2022-11-13 14:19] LABS: Appearance Urine Clear; Color Urine Yellow; Glucose Urine UA Negative (Negative); Leukocyte Esterase Urine Negative (Negative); Nitrite Urine Negative (Negative); Urine Blood Negative (Negative); Urine Ketones Trace mg/dL (Negative); Urine Protein Trace mg/dL (Neg-Trace)
[2022-11-13 16:00] VITALS: PULSE 95; RESP 18; TEMP 36.3; O2SAT 92
[2022-11-13] MEDS: QUEtiapine Fumarate 25 MG TABLET PO (16:14)
[2022-11-13] MEDS: Potassium Chloride/H20 10 MEQ/100 ML PIGGYBACK 100 MEQ IV ×2 (17:36→18:33)
[2022-11-13 19:31] VITALS: BP 157/72; PULSE 95; RESP 18; TEMP 37.2; O2SAT 93
[2022-11-14] VITALS (8 sets, daily range): BP systolic 149–188; BP diastolic 72–88; PULSE 69–90; RESP 16–22; TEMP 36.4–36.9; O2SAT 92–97
[2022-11-14] MEDS: Piperacillin Sodium/Tazobactam 4.5 GM in 0.9 % Sodium Chloride 100 ML IV ×4 (02:41→21:49)
[2022-11-14] MEDS: 0.9 % Sodium Chloride Flush 3 ML SYRINGE IVFLUSH ×4 (03:24→21:50)
[2022-11-14 05:49] LABS: Hemoglobin 13.7 g/dl (12.0-16.0); Mean Corpuscular HGB Conc 32.6 g/dl (31.0-35.0); Mean Corpuscular Hemoglobin 30.9 pg (27.0-33.0); Mean Corpuscular Volume 94.8 fL (80.0-98.0); Mean Platelet Volume 11.6 fL (9.4-12.3); Platelet Count 287 X10*3/uL (160-400); Red Blood Count 4.43 X10*6/uL (4.20-5.50); Red Cell Distribution Width 14.2 % (11.0-16.0); White Blood Count 17.4 X10*3/uL (4.8-10.8)
[2022-11-14 06:14] LABS: Anion Gap 14 (12-20); Blood Urea Nitrogen 14 mg/dL (9-16); Calcium 8.7 mg/dL (8.4-10.2); Carbon Dioxide 23 mmol/L (22-29); Chloride 105 mmol/L (96-108); Creatinine Clr Calc Pharmacy 86.4; Estimated Glomerular Filt Rate > 60; Glucose Random 102 mg/dL (60-115); Potassium 2.9 mmol/L (3.3-5.1); Sodium 139 mmol/L (135-145)
[2022-11-14] MEDS: amLODIPine Besylate 5 MG TABLET PO (09:06)
[2022-11-14] MEDS: Divalproex Sodium Sprinkles 125 MG CAP.DR.SPR 250 MG PO (09:06)
[2022-11-14] MEDS: Losartan Potassium 50 MG TABLET 100 MG PO (09:06)
--- NOTE | 2022-11-14 10:34 | HO.PM.IMPN ---
Subjective Subjective Date of Service: 11/14/22 Interval History: Somnolent minimally arousable no acute issues Review of Systems Unable to obtain Physical Exam Vital Signs: Vital Signs: Last Vital Signs Temp 97.5 F 11/14/22 07:42 Pulse 69 11/14/22 07:42 Resp 16 11/14/22 07:42 BP 167/88 H 11/14/22 07:42 Pulse Ox 94 11/14/22 07:42 O2 Del Method Nasal Cannula 11/14/22 07:42 O2 Flow Rate 3 11/14/22 07:42 BMI result Body Mass Index 27.5 Const: Other: Somnolent/comfortable Resp: Other: Coarse breath sounds throughout with scattered minimal expiratory wheezes Cardio: Other: No S4; positive S1-S2; no S3 murmurs rubs or gallops GI: Other: Soft nontender nondistended normoactive bowel sounds Extrem: Other: No edema bilaterally Objective Data Active Medications Acetaminophen (Acetaminophen 325 Mg Tablet) 650 mg PO Q6H PRN PRN Reason: Pain, Mild (Pain Scale 1-3) Last Admin: 11/12/22 08:21 Dose: 650 mg Documented By: TADEO Amlodipine Besylate (Amlodipine Besylate 5 Mg Tablet) 5 mg PO DAILY [facility]; Protocol Last Admin: 11/14/22 09:06 Dose: 5 mg Documented By: ALEXI Divalproex Sodium (Divalproex Sodium Sprinkles 125 Mg ) 250 mg PO DAILY [facility] Last Admin: 11/14/22 09:06 Dose: 250 mg Documented By: ALEXI Docusate Sodium (Docusate Sodium 100 Mg Capsule) 100 mg PO DAILY PRN PRN Reason: Constipation Enoxaparin Sodium (Enoxaparin Sodium 40 Mg/0.4 Ml Syringe) 40 mg SUBCUT Q24H [facility] Last Admin: 11/13/22 13:04 Dose: 40 mg Documented By: PASTOR Piperacillin Sod/Tazobactam (Sod 4.5 gm/ Sodium Chloride) 100 mls @ 200 mls/hr IV Q6H [facility] Last Infusion: 11/14/22 09:44 Dose: 0 mls/hr Documented By: ALEXI Losartan Potassium (Losartan Potassium 50 Mg Tablet) 100 mg PO DAILY [facility]; Protocol Last Admin: 11/14/22 09:06 Dose: 100 mg Documented By: ALEXI Ondansetron HCl (Ondansetron Hcl 4 Mg/2 Ml Vial) 4 mg IVPUSH Q8H PRN PRN Reason: Nausea and Vomiting Quetiapine Fumarate (Quetiapine Fumarate 25 Mg Tablet) 25 mg PO 1700 [facility] Last Admin: 11/13/22 16:14 Dose: 25 mg Documented By: PASTOR Sodium Chloride (0.9 % Sodium Chloride Flush 3 Ml Syringe) 3 ml IVFLUSH QSHIFT [facility] Last Admin: 11/14/22 09:07 Dose: 3 ml Documented By: ALEXI Labs 11/14/22 05:23 11/14/22 05:23 Labs: Laboratory Results - last 24 hr 11/13/22 11/14/22 11/14/22 14:05 05:23 05:23 MCV 94.8 MCH 30.9 MCHC 32.6 RDW 14.2 Plt Count 287 MPV 11.6 Absolute Nucleated RBC 0.000 Nucleated RBC % (auto) 0.0 Anion Gap 14 Estim Creat Clear Calc 86.4 Estimated GFR > 60 Random Glucose 102 Calcium 8.7 Urine Color Yellow Urine Appearance Clear Urine pH 8.0 Ur Specific [place] 1.020 Urine Protein Trace Urine Glucose (UA) Negative Urine Ketones Trace Urine Blood Negative Urine Nitrite Negative Ur Leukocyte Esterase Negative Assessment and Plan (1) Hospital-acquired pneumonia: Status: Acute (2) Sepsis: Status: Acute (3) Acute UTI: Status: Acute Plan Pt is a 77-year-old female with a PMH significant for?Alzheimer's, HTN, COPD, adjustment disorder, and acute psychosis who presents to the ED from SNF apparently complaining abdominal pain radiating up the right side and shoulders. Patient is a resident of [facility] and not on any home meds, only taking acetaminophen p.r.n. Patient with hx of dementia, is AOx2 at baseline, but currently somnolent and barely arousable to noxious stimuli. Was found to be hypoxic and placed on high-flow. Patient be admitted to the hospital for treatment further evaluation of acute hypoxic respiratory failure in the setting of hospital-acquired pneumonia. 1.Acute hypoxic respiratory failure in the setting of hospital-acquired pneumonia/sepsis -Zosyn(5)/vanco DC -titrate O2 as tolerated -fever spike to 101.3 ... If afebrile times 48 hours will DC in a.m. 2.Hypertensive urgency... Resolved -control improved on amlodipine/losartan -will increase amlodipine to 10 mg and follow clinically -follow renals/divalents 3.COPD -completed steroids -titrate O2 as tolerated Full Code Attending:?Dr. Peng DVT Prophylaxis: Lovenox Pt will require a ongoing hospitalization to continue IV antibiotics to treat hospital-acquired pneumonia Time Spent With Patient Time: Total time managing care of this patient today ____ minutes. Quality Stroke Does the patient have a stroke diagnosis?: No VTE Prior VTE?: No VTE Risk Level:: Medical - moderate - high VTE Device Contraindication: Treatment Not Indicated VTE Drug Contraindication: N/A - Med Ordered
--- NOTE | 2022-11-14 12:13 | MHC.CM.PN ---
EMR reviewed and per MD rounds, pt is not medically cleared for D/C back to [facility] for LTC today due to ongoing treatment of pneumonia requiring IV abx. Per MD, pt will likely D/C over the weekend. CM will continue to follow.
[2022-11-14] MEDS: QUEtiapine Fumarate 25 MG TABLET PO (16:18)
[2022-11-14] MEDS: Enoxaparin Sodium 40 MG/0.4 ML SYRINGE SUBCUT (16:18)
[2022-11-15 02:32] VITALS: BP 177/77; PULSE 83; RESP 20; TEMP 36.8; O2SAT 92
[2022-11-15] MEDS: Piperacillin Sodium/Tazobactam 4.5 GM in 0.9 % Sodium Chloride 100 ML IV ×4 (05:57→21:26)
[2022-11-15 07:05] VITALS: BP 149/78; PULSE 76; RESP 18; TEMP 36.1; O2SAT 93
[2022-11-15] MEDS: Potassium Chloride/H20 10 MEQ/100 ML PIGGYBACK 100 MEQ IV ×4 (07:42→14:08)
[2022-11-15] MEDS: amLODIPine Besylate 5 MG TABLET PO (07:46)
[2022-11-15] MEDS: 0.9 % Sodium Chloride Flush 3 ML SYRINGE IVFLUSH ×3 (07:46→21:27)
[2022-11-15] MEDS: Divalproex Sodium Sprinkles 125 MG CAP.DR.SPR 250 MG PO (07:46)
[2022-11-15] MEDS: Acetaminophen 325 MG TABLET 650 MG PO (07:46)
[2022-11-15] MEDS: Losartan Potassium 50 MG TABLET 100 MG PO (07:47)
[2022-11-15 08:20] LABS: MANUAL DIFF FLAG NO
[2022-11-15 08:23] LABS: Basophils Percent Auto 0.3 % (0-2); Eosinophils Absolute Auto 0.6 X10*3/uL (0.0-0.4); Hematocrit 40.9 % (37.0-47.0); Hemoglobin 13.7 g/dl (12.0-16.0); Imm Gran Abs Auto 0.32 X10*3/uL (0.00-0.03); Imm Gran Pct Auto 2.1 % (0.0-0.4); Lymphocytes Percent Auto 6.4 % (20-40); Mean Corpuscular HGB Conc 33.5 g/dl (31.0-35.0); Mean Corpuscular Hemoglobin 31.6 pg (27.0-33.0); Mean Corpuscular Volume 94.2 fL (80.0-98.0); Mean Platelet Volume 11.3 fL (9.4-12.3); Monocytes Absolute Auto 1.3 X10*3/uL (0.1-1.2); Monocytes Percent Auto 8.4 % (2-11); Neutrophils Percent Auto 78.8 % (45-73); Platelet Count 309 X10*3/uL (160-400); Red Blood Count 4.34 X10*6/uL (4.20-5.50); Red Cell Distribution Width 14.1 % (11.0-16.0); White Blood Count 15.3 X10*3/uL (4.8-10.8)
[2022-11-15 09:13] LABS: Alanine Aminotransferase 9 U/L (0-31); Albumin Level 2.7 g/dL (3.5-5.0); Alkaline Phosphatase 53 U/L (39-117); Anion Gap 14 (12-20); Aspartate Amino Transferase 12 U/L (5-31); Blood Urea Nitrogen 12 mg/dL (9-16); Calcium 8.5 mg/dL (8.4-10.2); Carbon Dioxide 25 mmol/L (22-29); Chloride 105 mmol/L (96-108); Estimated Glomerular Filt Rate > 60; Glucose Fasting 120 mg/dL (60-99); Magnesium 2.2 mg/dL (1.6-2.6); Sodium 141 mmol/L (135-145); Total Protein 5.4 g/dL (6.5-8.0)
[2022-11-15 10:37] LABS: Bilirubin Total 1.3 mg/dL (0.0-1.0)
[2022-11-15 11:14] VITALS: BP 171/79; PULSE 67; RESP 17; TEMP 36.4; O2SAT 96
[2022-11-15] MEDS: Enoxaparin Sodium 40 MG/0.4 ML SYRINGE SUBCUT (11:33)
--- NOTE | 2022-11-15 14:23 | P.PNIM_ITS ---
Subjective Subjective Date of Service: 11/15/22 Interval History: No acute issues overnight. Remains afebrile. Sitter present Review of Systems Unable to obtain Physical Exam Vital Signs: Vital Signs: Last Vital Signs Temp 97.5 F 11/15/22 11:14 Pulse 67 11/15/22 11:14 Resp 17 11/15/22 11:14 BP 171/79 H 11/15/22 11:14 Pulse Ox 96 11/15/22 11:14 O2 Del Method Nasal Cannula 11/15/22 11:14 O2 Flow Rate 2 11/15/22 11:14 BMI result Body Mass Index 27.5 Const: Other: Somnolent/comfortable Resp: Other: Coarse breath sounds throughout with scattered minimal expiratory wheezes Cardio: Other: No S4; positive S1-S2; no S3 murmurs rubs or gallops GI: Other: Soft nontender nondistended normoactive bowel sounds Extrem: Other: No edema bilaterally Objective Data Active Medications Acetaminophen (Acetaminophen 325 Mg Tablet) 650 mg PO Q6H PRN PRN Reason: Pain, Mild (Pain Scale 1-3) Last Admin: 11/15/22 07:46 Dose: 650 mg Documented By: NEIDA Amlodipine Besylate (Amlodipine Besylate 5 Mg Tablet) 5 mg PO DAILY [facility]; Protocol Last Admin: 11/15/22 07:46 Dose: 5 mg Documented By: NEIDA Divalproex Sodium (Divalproex Sodium Sprinkles 125 Mg ) 250 mg PO DAILY [facility] Last Admin: 11/15/22 07:46 Dose: 250 mg Documented By: NEIDA Docusate Sodium (Docusate Sodium 100 Mg Capsule) 100 mg PO DAILY PRN PRN Reason: Constipation Enoxaparin Sodium (Enoxaparin Sodium 40 Mg/0.4 Ml Syringe) 40 mg SUBCUT Q24H [facility] Last Admin: 11/15/22 11:33 Dose: 40 mg Documented By: NEIDA Piperacillin Sod/Tazobactam (Sod 4.5 gm/ Sodium Chloride) 100 mls @ 200 mls/hr IV Q6H [facility] Last Infusion: 11/15/22 12:22 Dose: 0 mls/hr Documented By: NEIDA Losartan Potassium (Losartan Potassium 50 Mg Tablet) 100 mg PO DAILY [facility]; Protocol Last Admin: 11/15/22 07:47 Dose: 100 mg Documented By: NIEDA Ondansetron HCl (Ondansetron Hcl 4 Mg/2 Ml Vial) 4 mg IVPUSH Q8H PRN PRN Reason: Nausea and Vomiting Quetiapine Fumarate (Quetiapine Fumarate 25 Mg Tablet) 25 mg PO 1700 [facility] Last Admin: 11/14/22 16:18 Dose: 25 mg Documented By: ALEXI Sodium Chloride (0.9 % Sodium Chloride Flush 3 Ml Syringe) 3 ml IVFLUSH QSHIFT [facility] Last Admin: 11/15/22 11:33 Dose: 3 ml Documented By: NEIDA Labs 11/15/22 07:48 11/15/22 07:48 Labs: Laboratory Results - last 24 hr 11/15/22 11/15/22 07:48 07:48 MCV 94.2 MCH 31.6 MCHC 33.5 RDW 14.1 Plt Count 309 MPV 11.3 Immature Gran % (Auto) 2.1 H Neut % (Auto) 78.8 H Lymph % (Auto) 6.4 L [place] % (Auto) 8.4 Eos % (Auto) 4.0 Baso % (Auto) 0.3 Lymph # (Auto) 1.0 L [place] # (Auto) 1.3 H Eos # (Auto) 0.6 H Baso # (Auto) 0.0 Abs Immat Gran (auto) 0.32 H Absolute Neuts (auto) 12.0 H Absolute Nucleated RBC 0.000 Nucleated RBC % (auto) 0.0 Anion Gap 14 Estim Creat Clear Calc 85.0 Estimated GFR > 60 Fasting Glucose 120 H Calcium 8.5 Magnesium 2.2 Total Bilirubin 1.3 H AST 12 ALT 9 Alkaline Phosphatase 53 Total Protein 5.4 L Albumin 2.7 L Microbiology Microbiology Results: Microbiology 11/09/22 08:35 Blood Culture - Final Blood - Venous No growth after 5 days. 11/09/22 08:36 Blood Culture - Final Blood - Venous No growth after 5 days. Assessment and Plan (1) Hospital-acquired pneumonia: Status: Acute (2) Sepsis: Status: Acute Plan Pt is a 77-year-old female with a PMH significant for?Alzheimer's, HTN, COPD, adjustment disorder, and acute psychosis who presents to the ED from SNF apparently complaining abdominal pain radiating up the right side and shoulders. Patient is a resident of [facility] and not on any home meds, only taking acetaminophen p.r.n. Patient with hx of dementia, is AOx2 at baseline, but currently somnolent and barely arousable to noxious stimuli. Was found to be hypoxic and placed on high-flow. Patient be admitted to the hospital for treatment further evaluation of acute hypoxic respiratory failure in the setting of hospital-acquired pneumonia. 1.Acute hypoxic respiratory failure in the setting of hospital-acquired pneumonia/sepsis -Zosyn(6)/vanco DCd -titrate O2 as tolerated 2.Hypertensive urgency... Resolved -control improved on amlodipine/losartan -will increase amlodipine to 10 mg and follow clinically -follow renals/divalents 3.COPD -completed steroids -titrate O2 as tolerated Full Code Attending:?Dr. Peng DVT Prophylaxis: Lovenox Pt will require a ongoing hospitalization to continue IV antibiotics to treat hospital-acquired pneumonia Time Spent With Patient Time: Total time managing care of this patient today ____ minutes. Quality Stroke Does the patient have a stroke diagnosis?: No VTE Prior VTE?: No VTE Risk Level:: Medical - moderate - high VTE Device Contraindication: Treatment Not Indicated VTE Drug Contraindication: N/A - Med Ordered
[2022-11-15 15:46] VITALS: BP 151/67; PULSE 73; RESP 14; TEMP 36.4; O2SAT 93
[2022-11-15 19:31] VITALS: BP 150/88; PULSE 68; RESP 14; TEMP 36.4; O2SAT 94
[2022-11-15 23:41] VITALS: BP 158/78; PULSE 98; RESP 19; TEMP 37; O2SAT 90
[2022-11-16 04:00] VITALS: BP 153/76; PULSE 77; RESP 19; TEMP 37.1; O2SAT 95
[2022-11-16] MEDS: Piperacillin Sodium/Tazobactam 4.5 GM in 0.9 % Sodium Chloride 100 ML IV ×2 (04:28→09:33)
[2022-11-16 07:54] VITALS: BP 168/81; PULSE 65; RESP 20; TEMP 36.2; O2SAT 94
[2022-11-16] MEDS: Divalproex Sodium Sprinkles 125 MG CAP.DR.SPR 250 MG PO (09:32)
[2022-11-16] MEDS: Losartan Potassium 50 MG TABLET 100 MG PO (09:32)
[2022-11-16] MEDS: Acetaminophen 325 MG TABLET 650 MG PO (09:32)
[2022-11-16] MEDS: amLODIPine Besylate 5 MG TABLET PO (09:32)
[2022-11-16] MEDS: 0.9 % Sodium Chloride Flush 3 ML SYRINGE IVFLUSH (09:33)
--- NOTE | 2022-11-16 10:36 | MHC.CM.PN ---
pt to be dcd back to [facility] notified pt leaving at 1
[2022-11-16 11:10] VITALS: BP 171/87; PULSE 81; RESP 18; TEMP 36.7; O2SAT 93
--- NOTE | 2022-11-16 12:09 | P.DS_ITS ---
DS: Providers Provider Date of Service: 11/16/22 Date of admission: 11/09/22 13:32 Date of discharge: 11/16/22 Primary care physician: Torrey Olivares MD DS: Diagnosis Discharge Diagnosis (1) Hospital-acquired pneumonia: Status: Acute (2) Sepsis: Status: Acute DS: Summary Hospital Course Hospital Course: 77-year-old female with a PMH significant for?Alzheimer's, HTN, COPD, adjustment disorder, and acute psychosis who presents to the ED from SNF apparently complaining abdominal pain radiating up the right side and shoulders.? Patient is a resident of [facility] and not on any home meds, only taking acetaminophen p.r.n. Patient with hx of dementia, is AOx2 at baseline, but currently somnolent and barely arousable to noxious stimuli.? She is incapable of answering question is or providing accurate HPI at this time.? HPI obtained from chart and provider review. Staff at SNF report patient was experiencing RLQ pain radiating to right armpit.? Patient tested positive for rhino virus yesterd ay.? They report BP of 120/74 with O2 sats of 94% on RA.? Patient not on home supplemental oxygen.? Patient is a full code which was verified by ED who spoke to patient's .? In the ED patient reported chest and abdominal pain. Was hypoxic at 86% on RA, improved to 97% on non-rebreather.? Patient then placed on OxyMask with saturation at 90%., then placed on high-flow with mild improvement to 91%. In the ED patient was afebrile but tachycardic up to 106, tachypneic up to 32, hypertensive up to 250/115, satting at 86% on RA.? Patient was placed on high- flow with improvement to 91%. Llabs were significant for leukocytosis of 31.3, bilirubin 1.8, BNP 380, and initial troponin 20.4 with repeat flat at 15.6.? UA negative for UTI.? H&H stable at 14.7/43.7.? Electrolytes WNL.? Renal function baseline.? Lactic acid WNL at 1.7 CXR showed redemonstration of diffuse increased interstitial lung markings and peribronchial cuffing suggestive of small airway disease. CT of chest found consolidations in the middle lobe and right lower lobe most suggestive of pneumonia.? 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 ?CT of abdomen and pelvis found no acute abnormalities in the abdomen or pelvis.? Head CT found no evidence of acute territorial infarct or hemorrhage, but found scattered chronic small vessel ischemic changes. EKG demonstrated sinus rhythm with PACs. Pt was treated with morphine, amlodipine, IVF, DuoNebs, ketamine, Zosyn, and azithromycin. Pt will be admitted to the hospital for acute hypoxic respiratory failure in the setting hospital-acquired pneumonia. Hospital Course Admitted to hospital and maintained on vancomycin and Zosyn. O2 was weaned down to 2 liters/minute; sats acceptable at this range. Patient did experience some untoward behavior that was treated with Seroquel with excellent results. Seroquel is DC 8 on the day of discharge as patient was quite somnolent the last 48 hours of her hospitalization. On the day of discharge she is up to the chair taking a regular diet and appears back at baseline. At this point in time she is medically acceptable for discharge Time Spent with Patient Time attestation: Total time managing care of this patient today ____ minutes. Discharge coordination time: Greater than 30 minutes Quality: Safe Use of Opioids Does Pt have an Active Cancer Diagnosis on the Problem List?: No Quality: Stroke Does the patient have a stroke diagnosis?: No Physical Exam Vital Signs: Vital Signs: Last Vital Signs Temp 98.1 F 11/16/22 11:10 Pulse 81 11/16/22 11:10 Resp 18 11/16/22 11:10 BP 171/87 H 11/16/22 11:10 Pulse Ox 93 11/16/22 11:10 O2 Del Method Nasal Cannula 11/16/22 11:10 O2 Flow Rate 2 11/16/22 11:10 BMI result Body Mass Index 27.5 Const: Other: Somnolent/comfortable Resp: Other: Coarse breath sounds throughout with scattered minimal expiratory wheezes Cardio: Other: No S4; positive S1-S2; no S3 murmurs rubs or gallops GI: Other: Soft nontender nondistended normoactive bowel sounds Extrem: Other: No edema bilaterally Discharge Plan Discharge Anticipated Discharge Date/Time: 11/16/22 12:03 Patient Disposition: Xfer [facility] Discharge Diagnosis: Pneumonia Referrals: [facility] [Outside] - 1 Week Torrey Olivares MD [Primary Care Provider] - 1 Week Discharge Medications: New losartan 50 mg Tablet 100 mg PO DAILY Qty: 60 0RF Protocol: Hold for SBP< HOLD for SBP < : 90 amlodipine 5 mg Tablet 5 mg PO DAILY Qty: 30 0RF Protocol: Hold for SBP< HOLD for SBP < : 90 amoxicillin-pot clavulanate 875-125 mg tablet 1 tab PO BID Qty: 20 0RF doxycycline hyclate 100 mg tablet 100 mg PO BID Qty: 20 0RF Continued nystatin 100,000 unit/gram powder 1 appl topical BID Rx Instructions: apply to bilateral breast for rash Discontinued acetaminophen [Tylenol] 325 mg Tablet 650 mg PO Q6H PRN (Reason: Pain) Discharge Orders: Discharge Order (Routine); Ordered 11/16/22 Ordered By: Tee Peng Diet: Advance to usual diet Activity on Discharge: As tolerated Stand Alone Forms: Patient Portal Discharge page Care Plan Goals: Complete course of doxycycline 100 mg twice daily and Augmentin 875 twice daily for 10 days Health Concerns: Continue all meds as taken pre-hospital Plan of Treatment: Titrate O2 as patient progresses. Assessment: See discharge summary
[2022-11-16] MEDS: Enoxaparin Sodium 40 MG/0.4 ML SYRINGE SUBCUT (13:12)
== END 2022-11-16 14:10 | DRG 720 ==
LOC: HO.ED 12:27 → HO.EDOVER 13:41 → HO.IMC 11-10 05:28
PROVIDERS: Hospitalist; Physician Assistant; Admitting Provider Student in an Organized Health Care Education/Training Program; Emergency Provider Emergency Medicine; PCP Family Medicine; Visit Provider Hospitalist
DX: A41.9 Sepsis, unspecified organism (principal); J18.9 Pneumonia, unspecified organism; J91.8 Pleural effusion in other conditions classified elsewhere; G30.9 Alzheimer's disease, unspecified; J44.0 Chronic obstructive pulmonary disease with (acute) lower respiratory infection; I24.8 Other forms of acute ischemic heart disease; F02.80 Dementia in other diseases classified elsewhere, unspecified severity, without behavioral disturbance, psychotic disturbance, mood disturbance, and anxiety; F43.20 Adjustment disorder, unspecified; I16.0 Hypertensive urgency; Z20.822 Contact with and (suspected) exposure to COVID-19; Z79.52 Long term (current) use of systemic steroids; Z79.899 Other long term (current) drug therapy
CPT/HCPCS: 36415; 70450; 71045; 71250; 74176; 80048; 80053; 80143; 80179; 80202; 80307; 81001; 81003; 82565; 82803; 83605; 83690; 83735; 83880; 84443; 84484; 85007; 85025; 85027; 85379; 85610; 87040; 87086; 87635; 93005; 94640; 99285; J0456; J1170; J1650; J2060; J2270; J2543; J2930; J3371

== ENCOUNTER → 2022-11-09 13:32 | Outpatient (BNV) | payer BC, MEDICAID, SELFPAY | PROVIDERS: Admitting Provider Student in an Organized Health Care Education/Training Program; Emergency Provider Emergency Medicine; PCP Family Medicine; Visit Provider Hospitalist | DX: A41.9 Sepsis, unspecified organism (principal); J18.9 Pneumonia, unspecified organism; Y95 Nosocomial condition | CPT/HCPCS: 99223; 99233; 99239 ==

== ENCOUNTER 2022-11-16 15:03 | Emergency (ER) | payer BC, MEDICAID, SELFPAY ==
--- NOTE | 2022-11-16 15:16 | ED_ITS ---
HPI - General Adult General Stated complaint: allergic reaction, rash on extremities Time Seen by Provider: 11/16/22 15:13 Source: patient and EMS Mode of arrival: EMS Limitations: other (poor historian ) History of Present Illness HPI narrative: 77-year-old female presents from [facility] with rash on chest and bilateral arms, patient was just discharged from this facility this afternoon, rashes present at time of discharge, nurse at the senior care stated that they did not have a provider on-call for them to get Benadryl so they figured they bring her back to the emergency department. Upon chart review patient was being given nystatin for this rash and was discharged home with same. Patient denies any respiratory complaints. She was discharged home on Augmentin and doxycycline. Patient poor historian and unable to provide a good history. Related Data Home Medications Medication Instructions Recorded Confirmed nystatin 100,000 unit/gram topical 1 appl topical BID 11/09/22 11/09/22 powder Previous Rx's Medication Instructions Recorded amlodipine 5 mg tablet 5 mg PO DAILY #30 tabs 11/16/22 amoxicillin 875 mg-potassium 1 tab PO BID #20 tabs 11/16/22 clavulanate 125 mg tablet diphenhydramine HCl 25 mg capsule 25 mg PO TID PRN allergic reaction 11/16/22 (Benadryl) #20 caps doxycycline hyclate 100 mg tablet 100 mg PO BID #20 tabs 11/16/22 losartan 50 mg tablet 100 mg PO DAILY #60 tabs 11/16/22 prednisone 20 mg tablet 20 mg PO DAILY 5 days #5 tabs 11/16/22 Allergies Allergy/AdvReac Type Severity Reaction Status Date / Time epinephrine [EPINEPHRINE] Allergy Unknown UNKNOWN Verified 11/16/22 15:22 levofloxacin [LEVOFLOXACIN] Allergy Unknown UNKNOWN Verified 11/16/22 15:22 procaine [From NOVOCAIN] Allergy Unknown UNKNOWN Verified 11/16/22 15:22 codeine [Codeine] AdvReac Mild VOMITING Verified 11/16/22 15:22 hydrocortisone AdvReac Mild HIGH BP Verified 11/16/22 15:22 [From Cortizone-10] atenolol [ATENOLOL] AdvReac Unknown UNKNOWN Verified 11/16/22 15:22 lidocaine [LIDOCAINE] AdvReac Unknown UNKNOWN Verified 11/16/22 15:22 sulfamethizole AdvReac Unknown UNKNOWN Verified 11/16/22 15:22 [SULFAMETHIZOLE] Review of Systems Review of Systems: Constitutional : No Weight loss, No Fever, No Chills, No Fatigue, No Malaise ENT/Mouth : No sore throat, No Rhinorrhea Eyes: No Eye Pain, No Swelling, No Redness Cardiovascular : No Chest Pain, No SOB, No Dyspnea on Exertion, No Orthopnea, No Edema, No Palpitations Respiratory : No Cough, No Sputum, No Wheezing Gastrointestinal : No Nausea, No Vomiting, No Diarrhea, No Constipation, No abdominal Pain, No Hematochezia, No Melena Genitourinary : No Dysuria, No Urinary Frequency, No Hematuria, Musculoskeletal : No joint pain, No Myalgias, No Joint Swelling Skin : No Skin Lesions, + rash Neuro : No Weakness, No Numbness, No Dizziness, No Headache Psych : No Anxiety/Panic, No Depression All other systems reviewed and are negative Yes all other systems are reviewed and are negative [facility] Past Medical History Attestation statement: The following information was validated with the patient. Source: old records reviewed and nursing notes reviewed Medical History AD (Alzheimer's disease) Adjustment disorder Anemia Congestive heart failure COPD (chronic obstructive pulmonary disease) HTN (hypertension) Hyperlipidemia Insomnia Pruritus Social History Social History Household Members: None Housing: [facility] Do you presently have visiting nurse or other home services: No Unable to assess alcohol history related to: Unknown Alcohol intake: unknown Patient Tobacco Use Status: Never used Tobacco service: No Physical Exam ED Vital Signs: vss Appearance: Alert.? Oriented X3.? No acute distress.? Head: Normocephalic, atraumatic, no step-offs or deformities Eyes: Pupils equal, round and reactive to light.? Neck: Normal inspection.? Neck supple.? CVS: Normal heart rate and rhythm.? Pulses normal.? Respiratory: No respiratory distress.? Breath sounds normal.? Abdomen: Soft and nontender.? Skin: Skin warm and dry.? Normal skin color.? Normal skin turgor.?+ rash to chest and b/l arms refer to images in chart. Extremities: No lower extremity edema.? No calf ttp. 5/5 strength to bilateral upper and lower extremities Medical Decision Making Medical Decision Making [facility] Narrative: 1518 A 77-year-old female who was discharged from our facility earlier today presents with rash to chest, bilateral arms, this rash is present upon discharge, is thought to be a fungal rash, patient has nystatin prescribed. Physical exam with rash please refer to images. Unlikely systemic rash, SJS, TEN, necrotizing infection. No signs of gangrene. Likely fungal rash vs contact dermatitis vs possible drug reavtion No sign of airway compromise or anaphylaxis. Patient was also seen by dr lazo agrees nystatin to be continued recommends d/c Augmentin and send prednsione. Plan- will stop augmentin, and keep on doxy. Differential Diagnosis Differential Diagnoses: The differential diagnosis associated with the presentation includes Unlikely systemic rash, SJS, TEN, necrotizing infection. No signs of gangrene. Likely fungal rash vs contact dermatitis vs possible drug reavtion No sign of airway compromise or anaphylaxis. Admission/Observation Consideration of admission/observation: Escalation of care including admission/observation considered No indication Consult Healthcare Provider Management of the patient was discussed with: Hospitalist Core Measures AMI core measures followed: Yes Measure exclusions: not indicated Critical Care Time Critical Care Time Critical Care Time: No Discharge Plan Discharge Clinical Impression: Rash, Allergic reaction Patient Disposition: er [facility] Instructions: Acute Rash (ED), Cold Compress or Soak (ED) Additional Instructions: Take your medications as prescribed. If you were prescribed antibiotics today, it is important that you take your medication to their entirety, do not skip any doses, do not finish them early. Follow-up with your primary care provider this week. Return to the emergency department with new or worsening symptoms. Such as fevers, chills, chest pain, shortness of breath, nausea, vomiting, dizziness, headache, vision changes, lethargy In case of emergency call 911 Stop augmentin continue doxycycline. Prescriptions: New prednisone 20 mg tablet 20 mg PO DAILY 5 Days Qty: 5 0RF diphenhydramine HCl [Benadryl] 25 mg capsule 25 mg PO TID PRN (Reason: allergic reaction) Qty: 20 0RF No Action nystatin 100,000 unit/gram powder 1 appl topical BID Rx Instructions: apply to bilateral breast for rash losartan 50 mg Tablet 100 mg PO DAILY Qty: 60 0RF Protocol: Hold for SBP< HOLD for SBP < : 90 amlodipine 5 mg Tablet 5 mg PO DAILY Qty: 30 0RF Protocol: Hold for SBP< HOLD for SBP < : 90 amoxicillin-pot clavulanate 875-125 mg tablet 1 tab PO BID Qty: 20 0RF doxycycline hyclate 100 mg tablet 100 mg PO BID Qty: 20 0RF Referrals: ED Physician,Generic [Emergency Provider] - 2 days Stand Alone Forms: Work/School Release
[2022-11-16 15:22] VITALS: BP 121/47; PULSE 70; RESP 16; TEMP 37.3; O2SAT 96; BMI 28.3
[2022-11-16] MEDS: predniSONE 20 MG TABLET PO (15:35)
[2022-11-16] MEDS: diphenhydrAMINE HCL 25 MG CAPSULE 50 MG PO (15:35)
== END 2022-11-18 03:23 | disposition skilled nursing facility (03) ==
PROVIDERS: Emergency Provider Emergency Medicine
DX: L50.0 Allergic urticaria (principal); Z79.899 Other long term (current) drug therapy
CPT/HCPCS: 99281; 99284

== ENCOUNTER 2024-06-04 05:09 | Inpatient (IN) | payer MEDICARE, MEDICAID, SELFPAY ==
[2024-06-04] VITALS (24 sets, daily range): BP systolic 145–230; BP diastolic 4–148; PULSE 63–142; RESP 13–24; TEMP 36.3–37.4; O2SAT 4–97; BMI 21.4
--- NOTE | ~2024-06-04 | CT_ITS ---
CLINICAL HISTORY: fall ams,,sob ? PNA CT chest without contrast Comparison: 11/09/2022 Findings: There is motion artifact on several slices. The heart size is normal. There is a pericardial effusion with maximum thickness of 0.8 cm. The visualized thyroid and mediastinum are otherwise unremarkable. There are trace bilateral pleural effusions with underlying consolidation, possible subsegmental atelectasis. The upper abdomen is unremarkable. The bones are intact. IMPRESSION: 1. Trace bilateral pleural effusions. 2. Pericardial effusion. This document has been electronically signed by: Markell Azar MD on 06/04/2024 08:59:18
--- NOTE | ~2024-06-04 | XR_ITS ---
CLINICAL HISTORY: hypoxia 1 view chest x-ray. Comparison: CT/SR - CT CHEST WO IV CON - 06/04/24 08:24 EDT CR - XR CHEST 1V - 06/04/24 06:57 EDT Findings: This examination is mildly limited by suboptimal patient positioning. The patient's face partially obscures the right lung apex. The patient is rotated toward the right. Interstitial prominence identified diffusely throughout the bilateral lungs with mild blunting of the left costophrenic angle and eglm-sf-cuoeiwua blunting of the right costophrenic angle. No pneumothorax. Heart size is tnuc-pq-fsoujmuukd enlarged. Impression: 1. Mildly limited examination related to suboptimal patient positioning. There is mujf-yu-qpswpuza cardiomegaly with findings suggesting pulmonary edema and small left/small to moderate right pleural effusions. This document has been electronically signed by: Zion Chinchilla MD on 06/05/2024 00:18:30
--- NOTE | ~2024-06-04 | XR_ITS ---
CLINICAL HISTORY: fall hypocia 1 view chest x-ray Comparison: 11/13/2022 Findings: Portions of the exam are obscured by overlying material. There is large left pleural effusion with underlying consolidation possible atelectasis or pneumonia. Normal size heart. No acute fracture. IMPRESSION: 1. Large left pleural effusion with underlying consolidation, differential considerations noted. This document has been electronically signed by: Markell Azar MD on 06/04/2024 07:38:28
--- NOTE | ~2024-06-04 | CT_ITS ---
CLINICAL HISTORY: fall +PLASENCIA CT head without contrast Comparison: CT/REG/SR - CT HEAD/BRAIN WO IV CON - 11/09/22 10:14 EDT Findings: No intra-axial mass, midline shift, hydrocephalus, or acute hemorrhage. Moderate global volume loss with subcortical and white matter hypodensity suggesting chronic microangiopathy. Midline frontal scalp hematoma. The visualized paranasal sinuses and mastoid air cells are normal. The orbits are within normal limits. No skull fracture. IMPRESSION: 1. No evidence of acute intracranial hemorrhage or skull fracture. Frontal scalp hematoma. Two. Moderate volume loss and chronic microvascular ischemic change. This document has been electronically signed by: Yasmeen Gill MD on 06/04/2024 07:02:13
--- NOTE | ~2024-06-04 | CT_ITS ---
CLINICAL HISTORY: fall +PLASENCIA CT cervical spine without contrast Comparison: None Findings: Vertebral alignment is within normal limits. Mild disc height loss. Ylpf-dvdwxna-tvzi-right facet hypertrophy. No significant osteophyte formation. No acute fractures or dislocations. No acute findings on limited view of the intracranial contents. Soft tissues of the neck are normal. Apical emphysema. IMPRESSION: No evidence of acute cervical spine fracture or malalignment. This document has been electronically signed by: Yasmeen Gill MD on 06/04/2024 07:00:19
--- NOTE | ~2024-06-04 | MR_ITS ---
CLINICAL HISTORY: compression fractures new requested per neurosurge , Limited study per neuro, Sag T 1/Stir, axials per Dr. Dias MR lumbar spine without contrast. COMPARISON: XR lumbar spine dated 06/04/24 at 10:30 EDT FINDINGS: Motion artifact limits evaluation of the axial T2 sequence. Normal alignment of the anterior and posterior elements without evidence of subluxation. Chronic superior endplate compression fracture of the L5 vertebral body with approximately 20 percent height loss. Chronic anterior superior endplate compression fracture of the L4 vertebral body with approximately 30 percent height loss. Chronic superior endplate compression fracture of the L1 vertebral body with approximately 30 percent height loss. Schmorl's nodes present at the superior endplates of L1 and L4. Acute anterior superior endplate compression fracture of the T12 vertebral body with approximately 30 percent height loss, better characterized on MR of the thoracic spine performed at the same time. The conus terminates at superior endplate of L2 and is otherwise unremarkable. Visualized portions of the sacrum are normal. L5-S1: Mild desiccation of the disc. Posterior disc bulge. Facet joint arthrosis. Moderate bilateral neural foraminal narrowing. L4-L5: Mild central disc protrusion. Facet joint arthrosis. Adet-qq-tgimvexf left neural foraminal narrowing. Mild spinal canal stenosis at this level. L3-L4: Moderate broad-based posterior disc bulge measuring 5 mm. Facet joint arthrosis. Moderate spinal canal stenosis. Ifplegsg-bg-mkrixt bilateral neural foraminal narrowing. L2-L3: Facet joint arthrosis. Mild posterior disc bulge. Mild bilateral neural foraminal narrowing. L1-L2: Facet joint arthrosis. Mhmr-th-bmbgrykt left neural foraminal narrowing. The visualized paraspinal musculature and retroperitoneal soft tissues are unremarkable. IMPRESSION: 1. Motion artifact limits evaluation of the portions of the study. 2. Chronic superior endplate compression fractures of the L1, L4 and L5 vertebral bodies. 3. Moderate spinal canal stenosis at L3-4. 4. Mild spinal canal stenosis at L4-5. 5. Moderate multilevel spondylosis with multilevel neural foraminal narrowing. 6. Acute anterior superior endplate compression fracture of the T12 vertebral body with approximately 30 percent height loss. This document has been electronically signed by: Latrell Licona MD on 06/06/2024 18:17:11
--- NOTE | ~2024-06-04 | XR_ITS ---
CLINICAL HISTORY: LOWER BACK PAIN 3 views lumbar spine Comparison: None Findings: There are compression fractures at T12, L1 L4 and L5. The age of these is indeterminate. Diffuse facet hypertrophy and degenerative change. Diffuse vascular calcification. IMPRESSION: Several age-indeterminate compression fractures. If there is high clinical concern for acute compression fracture, bone scan or MRI would better evaluate this. This document has been electronically signed by: Michael Nunez MD on 06/04/2024 10:55:40
--- NOTE | ~2024-06-04 | XR_ITS ---
CLINICAL HISTORY: FALL HIP PAIN 6 view, pelvis and bilateral hips Comparison: None Findings: No definite fracture Diffuse demineralization and moderate degenerative changes are noted. The soft tissues are unremarkable. IMPRESSION: No definite fracture. Moderate degenerative changes This document has been electronically signed by: Michael Nunez MD on 06/04/2024 11:00:22
--- NOTE | ~2024-06-04 | MR_ITS ---
CLINICAL HISTORY: new compression fractures limited per neuro , Limited study per neuro, Sag T1/Stir, axials per Dr. Dias MR thoracic spine without contrast. COMPARISON: XR lumbar spine dated 06/04/24 at 10:30 EDT FINDINGS: Chronic anterior superior endplate compression fracture of the T12 vertebral body with approximately 30 percent height loss. Schmorl's node present at the superior endplate of T12. Acute anterior superior endplate compression fracture of the T11 vertebral body with approximately 30 percent height loss. No retropulsion into the canal. Compression fracture of the inferior endplate of T7 with approximately 30 percent height loss. There is mild edema within the inferior endplate suggesting this may be acute. Remaining vertebral body heights are preserved. T1/T2 hyperintense well-defined lesion within the T3 vertebral body measuring 6 mm. No cortical destruction or aggressive features identified. Soft tissue component. Normal alignment of the anterior and posterior elements without evidence of subluxation. No abnormal signal within the normal caliber thoracic spinal cord. T7-T8: Mild posterior disc bulge. No significant neural foraminal narrowing. T8-T9: Mild posterior disc bulge. No significant neural foraminal narrowing. T9-T10: Mild posterior disc bulge. No significant neural foraminal narrowing. T10-T11: Mild posterior disc bulge. No significant neural foraminal narrowing. T11-T12: Mild posterior disc bulge. No significant neural foraminal narrowing. Remaining vertebral body levels are without significant degenerative changes. Descending thoracic aortic ectasia measuring up to 4.1 cm. IMPRESSION: 1. Acute superior endplate compression fracture of the T11 vertebral body with approximately 30 percent height loss. No retropulsion into the canal. 2. Inferior endplate compression fracture of T7 with approximately 30 percent height loss. Mild edema along the inferior endplate may represent a subacute fracture versus Modic type 1 degenerative endplate changes. 3. Chronic superior endplate compression fracture of the T12 vertebral body with approximately 30 percent height loss. 4. Well-defined lesion within the T3 vertebral body measuring 6 mm most likely represents an atypical hemangioma. No aggressive features identified. 5. Mild mid to lower thoracic spondylosis. This document has been electronically signed by: Latrell Licona MD on 06/06/2024 18:13:49
--- NOTE | 2024-06-04 05:30 | ECG_ITS ---
Test Reason : FALL Blood Pressure : */* mmHG Vent. Rate : 84 BPM Atrial Rate : 84 BPM P-R Int : 130 ms QRS Dur : 98 ms QT Int : 400 ms P-R-T Axes : 23 -29 114 degrees QTcB Int : 472 ms Normal sinus rhythm Possible Left atrial enlargement Left ventricular hypertrophy with repolarization abnormality ( R in aVL , Robel product , Romhilt-Ramos ) Abnormal ECG When compared with ECG of 09-Nov-2022 08:59, Premature atrial complexes are no longer Present T wave inversion more evident in Lateral leads Referred By: Generic ED Physician Electronically Signed By: Ilya Vela
[2024-06-04 05:55] LABS: Basophils Percent Auto 0.3 % (0-2); Eosinophils Absolute Auto 0.1 X10*3/uL (0.0-0.4); Hemoglobin 14.2 g/dl (12.0-16.0); Imm Gran Abs Auto 0.07 X10*3/uL (0.00-0.03); Imm Gran Pct Auto 0.6 % (0.0-0.4); Lymphocytes Absolute Auto 1.3 X10*3/uL (1.2-4.9); MANUAL DIFF FLAG SCAN; Mean Corpuscular HGB Conc 33.8 g/dl (31.0-35.0); Mean Corpuscular Hemoglobin 30.6 pg (27.0-33.0); Mean Corpuscular Volume 90.5 fL (80.0-98.0); Monocytes Absolute Auto 0.6 X10*3/uL (0.1-1.2); Monocytes Percent Auto 4.9 % (2-11); Neutrophils Absolute Auto 9.8 x10*3/uL (2.0-8.3); Neutrophils Percent Auto 82.2 % (45-73); PLT CLUMP 1; Red Blood Count 4.64 X10*6/uL (4.20-5.50); Red Cell Distribution Width 13.8 % (11.0-16.0); SCAN SMEAR FLAG 1
--- NOTE | 2024-06-04 06:07 | PC.NURSE ---
Pt not tolerating EKG, or vitals well. bp obtained on Left leg
[2024-06-04 06:09] LABS: Alanine Aminotransferase 8 U/L (0-31); Albumin Level 3.7 g/dL (3.5-5.0); Alkaline Phosphatase 86 U/L (39-117); Anion Gap 15 (12-20); Aspartate Amino Transferase 43 U/L (5-31); Bilirubin Total 0.6 mg/dL (0.0-1.0); Blood Urea Nitrogen 19 mg/dL (9-16); Carbon Dioxide 21 mmol/L (22-29); Chloride 110 mmol/L (96-108); Estimated Glomerular Filt Rate > 60; Glucose Random 122 mg/dL (60-115); Potassium 4.7 mmol/L (3.3-5.1); Sodium 141 mmol/L (135-145); Total Protein 7.5 g/dL (6.5-8.0)
[2024-06-04 06:13] LABS: Troponin-I High Sensitivity 271.5 ng/L (<3.5-17.0)
[2024-06-04 06:16] LABS: Mean Platelet Volume 10.9 fL (9.4-12.3); Platelet Count 307 X10*3/uL (160-400); SLIDE REVIEW VERIFIED
--- NOTE | 2024-06-04 08:06 | ED.GENADULT ---
HPI - General Adult General Chief complaint: Fall Stated complaint: FALL. +HS, -THIN Time Seen by Provider: 06/04/24 06:48 Source: EMS and RN notes reviewed History of Present Illness ED Provider: KEMAL Saha HPI narrative: This is a 78-year-old female past medical history significant for dementia, hypertension, adjustment disorder, COPD, heart failure, insomnia, hyperlipidemia who presents from the dementia unit at [facility] status post unwitnessed fall. With suspected head strike. Patient is not on blood thinners. According to EMS report patient typically uses a walker however when she fell she was not found with a walker nearby. She was noted to have a little bit of dry blood around both nares however unable to appreciate that on my examination. Patient does not answer my questions she opens her eyes however does not say anything. According to nursing EMS reported that this is patient's baseline. Unable to obtain an accurate history review of systems from patient Related Data Home Medications ?Medication ?Instructions ?Recorded ?Confirmed nystatin 100,000 unit/gram topical 1 appl topical BID 11/09/22 11/09/22 powder Previous Rx's ?Medication ?Instructions ?Recorded amlodipine 5 mg tablet 5 mg PO DAILY #30 tabs 11/16/22 amoxicillin 875 mg-potassium 1 tab PO BID #20 tabs 11/16/22 clavulanate 125 mg tablet diphenhydramine HCl 25 mg capsule 25 mg PO TID PRN allergic reaction 11/16/22 (Benadryl) #20 caps doxycycline hyclate 100 mg tablet 100 mg PO BID #20 tabs 11/16/22 losartan 50 mg tablet 100 mg PO DAILY #60 tabs 11/16/22 prednisone 20 mg tablet 20 mg PO DAILY 5 days #5 tabs 11/16/22 Allergies Allergy/AdvReac Type Severity Reaction Status Date / Time epinephrine [EPINEPHRINE] Allergy Unknown UNKNOWN Verified 06/04/24 05:22 levofloxacin [LEVOFLOXACIN] Allergy Unknown UNKNOWN Verified 06/04/24 05:22 procaine [From NOVOCAIN] Allergy Unknown UNKNOWN Verified 06/04/24 05:22 codeine [Codeine] AdvReac Mild VOMITING Verified 06/04/24 05:22 hydrocortisone AdvReac Mild HIGH BP Verified 06/04/24 05:22 [From Cortizone-10] atenolol [ATENOLOL] AdvReac Unknown UNKNOWN Verified 06/04/24 05:22 lidocaine [LIDOCAINE] AdvReac Unknown UNKNOWN Verified 06/04/24 05:22 sulfamethizole AdvReac Unknown UNKNOWN Verified 06/04/24 05:22 [SULFAMETHIZOLE] Review of Systems Review of Systems: Yes all other systems are reviewed and are negative [facility] Past Medical History Attestation statement: The following information was validated with the patient. Source: old records reviewed and nursing notes reviewed Medical History Pruritus Hyperlipidemia Insomnia HTN (hypertension) Congestive heart failure COPD (chronic obstructive pulmonary disease) Anemia AD (Alzheimer's disease) Adjustment disorder Social History Social History Household Members: None Housing: Prison Do you presently have visiting nurse or other home services: No Unable to assess alcohol history related to: Unknown Alcohol intake: unknown Comment: 1:1 sitter for safety Patient Tobacco Use Status: Never used Tobacco Use of substances other than those prescribed or required for medical reasons: Unknown Advance Directives: Yes Advance Directives on File: No Advance Directives Date on File: 11/09/22 Do you have a plan to hurt others: No Plan service: No Physical Exam ED Vital Signs: Vital Signs - 24 hr 06/04/24 05:18 06/04/24 05:59 06/04/24 07:49 Temperature 97.3 F 97.3 F Pulse Rate 78 78 63 Respiratory Rate 16 16 20 Blood Pressure 165/148 H 165/148 H 177/4 H Pulse Oximetry 89 L 89 L Oxygen Delivery Method Room Air Room Air 06/04/24 08:05 06/04/24 10:29 Temperature 98.0 F 97.5 F Pulse Rate 80 Respiratory Rate 21 H 14 Blood Pressure 203/100 H Pulse Oximetry 91 L Oxygen Delivery Method Room Air BMI result Body Mass Index 21.4 vss Appearance: Awake moving all extremities. Not speaking. Oriented X 0 No acute distress.? Head: Normocephalic, atraumatic, no step-offs or deformities Eyes: Pupils equal, round and reactive to light.? Neck: Normal inspection.? Neck supple.? CVS: Normal heart rate and rhythm.? Pulses normal.? Respiratory: No respiratory distress.? Breath sounds normal.? Abdomen: Soft and nontender.? Skin: Skin warm and dry.? Normal skin color.? Normal skin turgor.? Extremities: No lower extremity edema.? No calf ttp. Global weakness Back: No midline tenderness, no C-spine tenderness, full range of motion, no CVA tenderness bilaterally Neuro: Awake moving all extremities. Not speaking. Oriented X 0 Course Reevaluation(s) Reevaluation #1: Patient's CBC with leukocytosis 12.0, slight left shift. Chemistry with mild elevation BUN likely secondary to poor p.o. intake/dehydration. Troponin elevated 271.5, patient nonverbal unclear if there is chest pain or not however nonischemic EKG. Will repeat troponin. Will also add a CPK to ensure patient is not on rhabdo. Time: 08:20 Reevaluation #2: Rhabdo normal. Will obtain UA with straight cath. Patient's blood pressure markedly elevated, elevated troponins could be secondary to demand ischemia from hypertension however unclear. No ischemic changes on EKG. Will continue to monitor blood pressure as well as troponins with hospital admission. If patient wakes up a little bit more will try giving her her home blood pressure meds. However, if she is not arousable will give IV meds for blood pressure. Time: 10:34 Reevaluation #3: I did speak to patient's healthcare proxy/ Jimbo emergency contact in chart I did inform him patient has influenza hypoxia, sustained a fall. I explained patient would be admitted. He is also aware that she has hypertension. I also I had a long conversation with him about patient has multiple compression fractures noted on imaging. He is not aware of history of compression fractures. I offered him transferred to a tertiary facility for possible interventions however he does not want this for patient. Will treat her pain with IV morphine. Patient states he will be in later today to see patient. In the meantime patient to be admitted urine pending Time: 11:12 Additional Reevaluation(s): To note, patient's is okay with patient being intubated however does not want CPR on patient. I explained he can further discuss this with the hospitalist and fill out a form. Medications Administered Discontinued Medications Generic Name Dose Route Start Last Admin Trade Name Freq PRN Reason Stop Dose Admin Amlodipine Besylate 5 mg 06/04/24 08:08 06/04/24 08:08 Amlodipine Besylate 5 Mg Tablet PO 06/04/24 08:09 Not Given ONCE ONE Protocol Medical Decision Making Medical Decision Making [facility] Narrative: 78 year old female presents sp fall. Patient unable to provide hx. Acorrding to EMS this is patients baseline PE no evident signs of blunt trauma. Patient asleep. Awake to stimuli. Doesnt answer my questions Hx and pe concerning for possible mechanical fall. Low suspicion for traumatic injury to head, neck, chest, abd, pelvis. Less likely metabolic derangments or infection. Mental status is likely patients baseline. Plan- labs, urine, imaing Differential Diagnosis Differential Diagnoses: The differential diagnosis associated with the presentation includes ( Hx and pe concerning for possible mechanical fall. Low suspicion for traumatic injury to head, neck, chest, abd, pelvis. Less likely metabolic derangments or infection. Mental status is likely patients baseline. ) Admission/Observation Consideration of admission/observation: Escalation of care including admission/observation considered Lab Data [facility] Lab Attestation statement: I reviewed the patient's lab results. 06/04/24 05:44 06/04/24 05:44 Labs: Lab Results 06/04/24 06/04/24 06/04/24 Range/Units 05:44 09:05 10:04 WBC 12.0 H (4.8-10.8) X10*3/uL RBC 4.64 (4.20-5.50) X10*6/uL Hgb 14.2 (12.0-16.0) g/dl Hct 42.0 (37.0-47.0) % MCV 90.5 (80.0-98.0) fL MCH 30.6 (27.0-33.0) pg MCHC 33.8 (31.0-35.0) g/dl RDW 13.8 (11.0-16.0) % Plt Count 307 (160-400) X10*3/uL MPV 10.9 (9.4-12.3) fL Immature Gran % (Auto) 0.6 H (0.0-0.4) % Neut % (Auto) 82.2 H (45-73) % Lymph % (Auto) 11.0 L (20-40) % [place] % (Auto) 4.9 (2-11) % Eos % (Auto) 1.0 (0-4) % Baso % (Auto) 0.3 (0-2) % Lymph # (Auto) 1.3 (1.2-4.9) X10*3/uL [place] # (Auto) 0.6 (0.1-1.2) X10*3/uL Eos # (Auto) 0.1 (0.0-0.4) X10*3/uL Baso # (Auto) 0.0 (0.0-0.2) X10*3/uL Abs Immat Gran (auto) 0.07 H (0.00-0.03) X10*3/uL Absolute Neuts (auto) 9.8 H (2.0-8.3) x10*3/uL Absolute Nucleated RBC 0.000 (0.0-0.012) X10*3/uL Nucleated RBC % (auto) 0.0 (0.0-0.2) /100WBC Smear Tech's Comments VERIFIED Sodium 141 (135-145) mmol/L Potassium 4.7 (3.3-5.1) mmol/L Chloride 110 H (96-108) mmol/L Carbon Dioxide 21 L (22-29) mmol/L Anion Gap 15 (12-20) BUN 19 H (9-16) mg/dL Creatinine 0.70 (0.5-1.4) mg/dL Estim Creat Clear Calc 64.0 Estimated GFR > 60 Random Glucose 122 H (60-115) mg/dL Lactic Acid 1.3 (0.5-2.0) mmol/L Calcium 9.0 (8.4-10.2) mg/dL Total Bilirubin 0.6 (0.0-1.0) mg/dL AST 43 H (5-31) U/L ALT 8 (0-31) U/L Alkaline Phosphatase 86 (39-117) U/L Total Creatine Kinase 98 (26-140) U/L Troponin I High Sens 271.5 H* D 291.0 H* (<3.5-17.0) ng/L B-Natriuretic Peptide 172 H (<100) pg/mL Total Protein 7.5 (6.5-8.0) g/dL Albumin 3.7 (3.5-5.0) g/dL Influenza Type A (PCR) POSITIVE A (Negative) Influenza Type B (PCR) NEGATIVE (Negative) RSV RNA Qual (PCR) NEGATIVE (Negative) SARS-CoV-2 RNA (RT-PCR) NEGATIVE (Negative) Independent Interpretation I performed an independent interpretation of an: EKG (Normal sinus rhythm Possible Left atrial enlargement Left ventricular hypertrophy with repolarization abnormality ( R in aVL , [place] product , Romhilt-Ramos ) Abnormal ECG When compared with ECG of 09-Nov-2022 08:59, Premature atrial complexes are no longer Present T wave inversion more evident in), Plain X-Ray (IMPRESSION: 1. Large left pleural effusion with underlying consolidation, differential considerations noted.) and CT Scan (IMPRESSION: 1. No evidence of acute intracranial hemorrhage or skull fracture. Frontal scalp hematoma. Two. Moderate volume loss and chronic microvascular ischemic change.) Radiology Impression Discussion of test interpretation with radiology: I have reviewed the radiologist's reading. External Record Review External record reviewed: Inpatient record, Office record, Outpatient record, Prior outpatient labs, Prior outpatient radiology, Primary care record and Outside ED record Chronic Conditions Patient?s care impacted by: Other (see HPI ) Critical Care Time Critical Care Time Critical Care Time: Yes Total Critical Care Time: 35 Attestation: I attest to this time spent taking care of the patient, obtaining history, physical, reviewing labs, imaging, treatment of patients condition +/- specialist/hospitalist consult +/- procedure Discharge Plan Discharge Clinical Impression: Influenza A, Compression fracture, Fall, Hypertensive urgency Patient Disposition: Admitted As Inpatient Print Language: Mongolian
[2024-06-04 09:16] LABS: B Type Natriuretic Peptide 172 pg/mL (<100)
[2024-06-04 09:34] LABS: Lactic Acid 1.3 mmol/L (0.5-2.0)
--- NOTE | 2024-06-04 09:38 | PC.NURSE ---
Care of Pt assumed at change of shift (0700.) Pt initially resting quietly in stretcher with lights dimmed. Noted HTN initially with some decrease in BP. Pt to CT for imaging. Upon return from CT Pt becomes restless and pulls at IV and medical equipment. At this time Pt c/o back pain/aches. Pt assisted into more comfortably position and lights dimmed. Pt continues to have spontaneous episodes of restlessness, pulling at IV, equipment and pull clothing off. Curtain remains open for continuous visual by this RN. Awaiting disposition.
--- NOTE | 2024-06-04 09:42 | PC.NURSE ---
Pt ordered 5mg of Norvasc. Unable to medicate at this time d/t safety concern. Pt with advanced dementia and periods of lethargy.
[2024-06-04 10:57] LABS: Influenza A PCR POSITIVE (Negative); Influenza B PCR NEGATIVE (Negative); Resp Syncy Virus RNA Qual PCR NEGATIVE (Negative); SARS COV2 PCR INHOUSE NEGATIVE (Negative)
[2024-06-04] MEDS: Losartan Potassium 50 MG TABLET 100 MG PO (10:59)
[2024-06-04] MEDS: Morphine Sulfate 4 MG/ML CARTRIDGE IVPUSH ×3 (11:25→22:14)
--- NOTE | 2024-06-04 11:29 | PC.NURSE ---
Pt returns from additional CT imaging. Pt alert and upright. Pt medicated with Norvasc and Cozaar at this time; pills crushed in apple sauces and Pt tolerated well with no complication. ED provider aware--will place new order for Norvasc as previous order has been charted against and cannot undo for new charting. Straight cath performed for urine spec--Pt tolerated well. Urine spec sent to lab. Bed linens and hospital gown changed and Pt is now resting quietly.
[2024-06-04 11:30] LABS: Appearance Urine Cloudy; Color Urine Yellow; Glucose Urine UA Negative (Negative); Leukocyte Esterase Urine Trace (Negative); Nitrite Urine Negative (Negative); PH 7.5 (5.0-9.0); Specific Gravity - Urine 1.015 (1.005-1.025); UMIC TRIGGER UACC YES; Urine Blood Negative (Negative); Urine Ketones Trace mg/dL (Negative); Urine Protein 100 (2+) mg/dL (Neg-Trace)
--- NOTE | 2024-06-04 11:32 | PC.NURSE ---
Nasal swab (+) Flu A. Precautions in place.
[2024-06-04 11:34] LABS: Bacteria Urine 4+ (None Seen); Hyaline Casts Urine 0-2 /LPF (0-2); RBC Urine 0-2 /HPF (0-2); Squamous Epithelial Cell Urine 0-2 /HPF (0-2); WBC Urine 0-5 /HPF (0-5)
--- NOTE | 2024-06-04 13:43 | PC.NURSE ---
Pt continues to be restless and pulls at IV and medical equipment. Sitter initiated.
--- NOTE | 2024-06-04 13:57 | P.HPHOSP_ITS ---
History of Present Illness Date of Service: 06/04/24 Attending physician on admission: Tee Peng Chief Complaint: Unwitnessed fall Pt is a 78-year-old female with a PMH significant for?Alzheimer's, HTN, COPD, adjustment disorder, and acute psychosis who presents to the ED from [facility] dementia unit after unwitnessed fall with suspected head strike as pt had dried blood around her nose. According to EMS report pt normally uses walker for ambulation, but was found on the ground without her walker. Pt with advanced dementia and primarily nonverbal. Unable to follow commands or answer questions. Reportedly at baseline. Pt has been agitated and attempting to get out of bed multiple times in the ED. imaging revealed age-indeterminate compression fractures. ED clinician spoke to who was unaware of any hx of compression fractures. ED offered to transfer pt to tertiary facility for possible intervention due to trauma, but did not want transfer or any surgical intervention. Would like pt to remain in the hospital for medical management. In the ED pt with elevated HR of 94, tacypnea of 21, and hypertension of 230/112, desatting to 82% on RA. Labs were significant for testing positive for influenza type a, initial troponin 271.5 with repeat flat at 291.0 and mildly elevated BNP of 172. Chronic leukocytosis of 12.0, lower than baseline. Stable H&H. No significant electrolyte abnormalities. Lactic acid WNL. AST elevated 43, LFTs otherwise WNL. CPK WNL at 98. UA negative for UTI. CXR showed large left pleural effusion with underlying consolidation concerning for atelectasis or possible pneumonia. CTA of head negative for acute intracranial hemorrhage or fracture, though does show frontal scalp hematoma. CT of cervical spine negative for acute fracture or malalignment. CT?of chest showing trace bilateral pleural effusions without underlying consolidation. Lumbar spine x-ray with several age-indeterminate compression fractures. X-ray of bilateral hip negative for definitive fracture. EKG demonstrated normal sinus rhythm with T- wave inversions more evident in lateral leads. Pt was treated with losartan p.o. and morphine IV. Pt will be admitted to the hospital for treatment and further evaluation of multiple issues, including acute hypoxic respiratory failure in the setting of acute influenza type a infection, as well as hypertensive urgency and elevated troponins in the setting of likely intractable pain from compression fractures secondary to fall at home. Review of Systems 2 Review of Systems: Yes Unobtainable due to mental status [facility] Medical History Pruritus Hyperlipidemia Insomnia HTN (hypertension) Congestive heart failure COPD (chronic obstructive pulmonary disease) Anemia AD (Alzheimer's disease) Adjustment disorder Social History Household Members: Unknown / Unable to assess Housing: Prison Do you presently have visiting nurse or other home services: No Unable to assess alcohol history related to: Unknown Alcohol intake: unknown Comment: 1:1 sitter for safety Patient Tobacco Use Status: Tobacco use Unknown Use of substances other than those prescribed or required for medical reasons: Refusing to respond Advance Directives: Yes Advance Directives on File: No Advance Directives Date on File: 11/09/22 Do you have a plan to hurt others: No Plan Patient : No service: No Meds Allergies Allergy/AdvReac Type Severity Reaction Status Date / Time epinephrine [EPINEPHRINE] Allergy Unknown UNKNOWN Verified 06/04/24 05:22 levofloxacin [LEVOFLOXACIN] Allergy Unknown UNKNOWN Verified 06/04/24 05:22 procaine [From NOVOCAIN] Allergy Unknown UNKNOWN Verified 06/04/24 05:22 codeine [Codeine] AdvReac Mild VOMITING Verified 06/04/24 05:22 hydrocortisone AdvReac Mild HIGH BP Verified 06/04/24 05:22 [From Cortizone-10] atenolol [ATENOLOL] AdvReac Unknown UNKNOWN Verified 06/04/24 05:22 lidocaine [LIDOCAINE] AdvReac Unknown UNKNOWN Verified 06/04/24 05:22 sulfamethizole AdvReac Unknown UNKNOWN Verified 06/04/24 05:22 [SULFAMETHIZOLE] Home Medications ?Medication ?Instructions ?Recorded ?Confirmed ?Last Taken ?Type clonidine 0.1 mg/24 hr weekly 1 patch topical TH@0900 06/04/24 06/04/24 06/02/24 History transdermal patch Physical Exam 2 Vital Signs and Narrative: Vital Signs: Last Vital Signs Temp 99.3 F 06/04/24 11:18 Pulse 94 06/04/24 11:18 Resp 21 H 06/04/24 11:25 BP 230/112 H 06/04/24 10:59 Pulse Ox 91 L 06/04/24 08:05 O2 Del Method Room Air 03/22/25 08:05 BMI result Body Mass Index 21.4 Constitutional: Alert, agitated. In no acute distress. Mental Status: Primarily non verbal, unable to follow commands or answer questions. Not oreiented. Eyes: Pupils are equal, round, and reactive to light. Ear, Nose, and Throat: Oropharynx clear, mucous membranes moist. Trachea midline. Bridge of nose with ecchymosis and swelling. Dried blood around nares bilaterally, l>r Respiratory: Clear to auscultation bilaterally. No wheezing, rales, or rhonchi. Cardiovascular: S1, S2 regular. No murmurs, rubs, or gallops. Gastrointestinal: Abdomen soft, non-tender, non-distended. Normal bowel sounds. Back: Lumbar spine appears tender to palpation, though hard to appreciate due to baseline dementia and agitation. Neurologic: Cranial nerves II-XII are grossly intact bilaterally. No focal neurological deficits. Moves all extremities spontaneously. Skin: Warm, dry. Extremities: Areas of ecchymosis on bilateral knees. Psychiatric: Agitated, with advanced dementia, unable to follow commands. Results Labs 06/04/24 05:44 06/05/24 05:58 Labs: Laboratory Results - last 24 hr 06/04/24 06/04/24 06/04/24 05:44 09:05 10:04 MCV 90.5 MCH 30.6 MCHC 33.8 RDW 13.8 Plt Count 307 MPV 10.9 Immature Gran % (Auto) 0.6 H Neut % (Auto) 82.2 H Lymph % (Auto) 11.0 L [place] % (Auto) 4.9 Eos % (Auto) 1.0 Baso % (Auto) 0.3 Lymph # (Auto) 1.3 [place] # (Auto) 0.6 Eos # (Auto) 0.1 Baso # (Auto) 0.0 Abs Immat Gran (auto) 0.07 H Absolute Neuts (auto) 9.8 H Absolute Nucleated RBC 0.000 Nucleated RBC % (auto) 0.0 Smear Tech's Comments VERIFIED Anion Gap 15 Estim Creat Clear Calc 64.0 Estimated GFR > 60 Random Glucose 122 H Lactic Acid 1.3 Calcium 9.0 Total Bilirubin 0.6 AST 43 H ALT 8 Alkaline Phosphatase 86 Total Creatine Kinase 98 B-Natriuretic Peptide 172 H Total Protein 7.5 Albumin 3.7 Urine Color Urine Appearance Urine pH Ur Specific Agenda Urine Protein Urine Glucose (UA) Urine Ketones Urine Blood Urine Nitrite Ur Leukocyte Esterase Urine RBC Urine WBC Ur Squamous Epith Cells Urine Bacteria Hyaline Casts Influenza Type A (PCR) POSITIVE A Influenza Type B (PCR) NEGATIVE RSV RNA Qual (PCR) NEGATIVE SARS-CoV-2 RNA (RT-PCR) NEGATIVE 06/04/24 11:21 MCV MCH MCHC RDW Plt Count MPV Immature Gran % (Auto) Neut % (Auto) Lymph % (Auto) [place] % (Auto) Eos % (Auto) Baso % (Auto) Lymph # (Auto) [place] # (Auto) Eos # (Auto) Baso # (Auto) Abs Immat Gran (auto) Absolute Neuts (auto) Absolute Nucleated RBC Nucleated RBC % (auto) Smear Tech's Comments Anion Gap Estim Creat Clear Calc Estimated GFR Random Glucose Lactic Acid Calcium Total Bilirubin AST ALT Alkaline Phosphatase Total Creatine Kinase B-Natriuretic Peptide Total Protein Albumin Urine Color Yellow Urine Appearance Cloudy Urine pH 7.5 Ur Specific Agenda 1.015 Urine Protein 100 (2+) H Urine Glucose (UA) Negative Urine Ketones Trace Urine Blood Negative Urine Nitrite Negative Ur Leukocyte Esterase Trace H Urine RBC 0-2 Urine WBC 0-5 Ur Squamous Epith Cells 0-2 Urine Bacteria 4+ Hyaline Casts 0-2 Influenza Type A (PCR) Influenza Type B (PCR) RSV RNA Qual (PCR) SARS-CoV-2 RNA (RT-PCR) Assessment and Plan (1) Influenza A: Status: Acute (2) Compression fracture: Status: Acute (3) Hypertensive urgency: Status: Acute (4) Elevated troponin: Status: Acute Plan Pt is a 78-year-old female with a PMH significant for?Alzheimer's, HTN, COPD, adjustment disorder, and acute psychosis who presents to the ED from [facility] dementia unit after unwitnessed fall with suspected head strike as pt had dried blood around her nose. Pt will be admitted to the hospital for treatment and further evaluation of multiple issues, including acute hypoxic respiratory failure in the setting of acute influenza type a infection as well as hypertensive urgency and elevated troponins in the setting of likely intractable pain from compression fractures secondary to fall at home. Acute hypoxic respiratory failure in the setting of acute influenza type a infection Pt desatting to 82% on RA, influenza type A+ Tamiflu 75 mg b.i.d. x5 days Titrate supplemental O2 >92, wean as tolerated Unwitnessed fall Pt found on floor by staff at [facility] dementia unit Likely in the setting of above Imagine positive for age-indeterminate compression fractures of T12, L1, L4, and L5 Patient's offered transfer to [facility], but he declined as did not want any acute interventions Will treat with IV analgesics for pain management Hypertensive urgency BP as high as 230/112 Likely secondary to intractable pain in the setting of above Pt given losartan 100 mg p.o. Will continue clonidine 0.1 mg patch daily Continue pain management as above Elevated troponins Initial troponin 271.5 with repeat flat at 291.0 EKG without significant ischemic changes Likely type 2 in the setting of of above Repeat troponin in the morning Monitor on telemetry Alzheimer's dementia Not on home medications Will need one-to-one or camera monitoring Mentation appears at baseline DNR Attending:?Dr. Peng DVT Prophylaxis: Lovenox Pt will require a hospitalization of at least two nights for treatment of?multiple issues including acute hypoxic respiratory failure in the setting of acute influenza type a infection, as well as hypertensive urgency and elevated troponins in the setting of likely intractable pain secondary to compression fractures from unwitnessed fall at SNF. Pt will require hospital level care for pain management, administration of supplemental oxygen, and close monitoring of BP and cardiac function. Quality Stroke Does the patient have a stroke diagnosis?: No VTE Prior VTE?: No VTE Risk Level:: Medical - moderate - high VTE Device Contraindication: Treatment Not Indicated VTE Drug Contraindication: N/A - Med Ordered
--- NOTE | 2024-06-04 14:06 | PHA.MEDREC ---
Pharmacy Consult ? Medication Reconciliation Pharmacy has completed the medication reconciliation. Utilized list from [facility] [place].
--- NOTE | 2024-06-04 14:13 | PHA.MEDREC ---
Pharmacy Consult ? Medication Reconciliation Pharmacy has completed the medication reconciliation. [facility] and [facility].
[2024-06-04] MEDS: Enoxaparin Sodium 40 MG/0.4 ML SYRINGE SUBCUT (15:24)
[2024-06-04] MEDS: 0.9 % Sodium Chloride Flush 3 ML SYRINGE IVFLUSH (15:31)
[2024-06-04] MEDS: Oseltamivir Phosphate 75 MG CAPSULE PO (20:19)
[2024-06-04] MEDS: hydrALAZINE HCl 20 MG/ML VIAL 5 MG IVPUSH (21:24)
[2024-06-04] MEDS: Labetalol HCL 100 MG/20 ML VIAL 10 MG IVPUSH (22:51)
[2024-06-04] MEDS: Furosemide 40 MG/4 ML VIAL IVPUSH (23:37)
[2024-06-04] MEDS: LORazepam 2 MG/ML VIAL 0.5 MG IVPUSH (23:38)
[2024-06-04 23:56] LABS: ABG Base Excess -0.2 mmol/L; ABG HCO3 24 mmol/L (22-26); ABG pCO2 38 mmHg (32-45); ABG pO2 91 mmHg (83-108)
[2024-06-05] VITALS (11 sets, daily range): BP systolic 126–221; BP diastolic 46–117; PULSE 66–110; RESP 14–22; TEMP 36.6–37.1; O2SAT 92–99
[2024-06-05 01:02] LABS: ABG Refer to POC result
[2024-06-05] MEDS: Oseltamivir Phosphate 75 MG CAPSULE PO (05:47)
[2024-06-05 07:24] LABS: Troponin-I High Sensitivity 216.7 ng/L (<3.5-17.0)
--- NOTE | 2024-06-05 08:07 | PC.NURSE ---
Patient with bruising to bilateral knees.Continually attempting to put legs throw stretcher bars. Side of stretcher padded
[2024-06-05] MEDS: 0.9 % Sodium Chloride Flush 3 ML SYRINGE IVFLUSH (08:18)
--- NOTE | 2024-06-05 08:20 | PC.NURSE ---
Patient incont of urine, changed and repositioned. Bp elevated, MD notified
--- NOTE | 2024-06-05 08:21 | PC.NURSE ---
Switched to NC and patient pulling off oxymask. Sating 94% via 4 L nC, patient not trying to removed NC.
[2024-06-05] MEDS: Morphine Sulfate 4 MG/ML CARTRIDGE IVPUSH ×4 (08:24→19:59)
--- NOTE | 2024-06-05 08:26 | PC.NURSE ---
MD aware of elevated BP, stating to give morphine and re check BP , medicated per mar
--- NOTE | 2024-06-05 11:36 | PC.NURSE ---
Addendum entered by Hollis Agrawal RN 06/05/24 12:41: informed of pt's bp Original Note: md informed pt stated she is in pain all over but not being specific or giving anymore details and that pt is restless, difficult to re-direct. per md ok to administer prn morphine early
--- NOTE | 2024-06-05 12:47 | MHC.CM.PN ---
CM SPOKE TO PTS /HCP, TRIPP [phone] HE CONFIRMS PT IS LTC AT [facility] SHE USES A CANE TO AMBULATE HCP ON FILE PCP: ONEIL GERMAIN IMM DELIVERED, TRIPP REPORTS SHE HAS MEDICARE A & B DCP: RETURN TO [facility] LTC VIA BLS
[2024-06-05 13:53] LABS: Anion Gap 19 (12-20); Blood Urea Nitrogen 21 mg/dL (9-16); Calcium 9.7 mg/dL (8.4-10.2); Carbon Dioxide 23 mmol/L (22-29); Chloride 107 mmol/L (96-108); Creatinine Clr Calc Pharmacy 65.9; Estimated Glomerular Filt Rate > 60; Glucose Random 108 mg/dL (60-115); Potassium 3.8 mmol/L (3.3-5.1); Sodium 145 mmol/L (135-145)
--- NOTE | 2024-06-05 13:59 | P.PNIM_ITS ---
Subjective Subjective Date of Service: 06/05/24 Interval History: Remains extremely confused somewhat agitated. Pain control remains difficult Review of Systems Unable to obtain Physical Exam 2 Vital Signs: Vital Signs: Last Vital Signs Temp 98.5 F 06/05/24 11:49 Pulse 89 06/05/24 11:49 Resp 19 06/05/24 11:49 BP 169/82 H 06/05/24 10:42 Pulse Ox 97 06/05/24 11:49 O2 Del Method Nasal Cannula 06/05/24 11:49 O2 Flow Rate 2 06/05/24 11:49 BMI result Body Mass Index 21.4 Const: Other: Awake nonverbal Resp: Other: Clear to auscultation bilaterally no rales rhonchi or wheezes Cardio: Other: No S4; positive S1-S2; no S3 murmurs rubs or gallops GI: Other: Soft nontender nondistended normoactive bowel sounds Extrem: Other: No edema bilaterally Objective Data Active Medications Acetaminophen (Acetaminophen 325 Mg Tablet) 650 mg PO Q6H PRN PRN Reason: Pain, Mild 1-3,fever,headache Calcium Carbonate (Calcium Carbonate 750 Mg Tab.Chew) 750 mg PO Q4H PRN PRN Reason: Heartburn Clonidine (Clonidine 0.1 Mg Patch.Tdwk) 0.1 mg TRANSDERMA TH@0900 [facility]; Protocol Last Admin: 06/05/24 00:33 Dose: Not Given Documented By: YANELIS Non-Admin Reason: Physician Held Med Enoxaparin Sodium (Enoxaparin Sodium 40 Mg/0.4 Ml Syringe) 40 mg SUBCUT Q24H [facility] Last Admin: 06/04/24 15:24 Dose: 40 mg Documented By: GONZALO Hydroxyzine HCl (Hydroxyzine Hcl 50 Mg/Ml Vial) 50 mg IM Q4H PRN PRN Reason: agitation Magnesium Hydroxide (Milk Of Magnesia 30 Ml Oral.Susp) 30 ml PO DAILY PRN PRN Reason: Constipation Melatonin (Melatonin 3 Mg Tablet) 6 mg PO BEDTIME PRN PRN Reason: Insomnia Morphine Sulfate (Morphine Sulfate 4 Mg/Ml Cartridge) 4 mg IVPUSH Q4H PRN; Protocol PRN Reason: Restlessness, Severe Pain Last Admin: 06/05/24 11:33 Dose: 4 mg Documented By: MARIAH Ondansetron HCl (Ondansetron Hcl 4 Mg/2 Ml Vial) 4 mg IVPUSH Q8H PRN PRN Reason: Nausea and Vomiting Oseltamivir Phosphate (Oseltamivir Phosphate 75 Mg Capsule) 75 mg PO Q12H [facility] Last Admin: 06/05/24 05:47 Dose: 75 mg Documented By: YANELIS Oxycodone HCl (Oxycodone Hcl Immed Release 5 Mg Tablet) 5 mg PO Q6H PRN PRN Reason: Pain, Moderate(Pain Scale 4-6) Sodium Chloride (0.9 % Sodium Chloride Flush 3 Ml Syringe) 3 ml IVFLUSH QSHIFT [facility] Last Admin: 06/05/24 08:58 Dose: Not Given Documented By: MARIAH Non-Admin Reason: Previously Administered Labs 06/04/24 05:44 06/05/24 05:58 Labs: Laboratory Results - last 24 hr 06/04/24 06/05/24 23:52 05:58 Hold Purple Top SEE NOTE O2 Saturation 97.0 ABG pH at Pt Temp 7.40 ABG pCO2 at Pt Temp 38 ABG pO2 at Pt Temp 91 ABG HCO3 24 ABG Base Excess (Actual) -0.2 Anion Gap 19 Estim Creat Clear Calc 65.9 Estimated GFR > 60 Random Glucose 108 Calcium 9.7 D Microbiology Microbiology Results: Microbiology 06/04/24 09:05 Blood Culture - Preliminary Blood - Venous No growth after 24 hours. 06/04/24 09:05 Blood Culture - Preliminary Blood - Venous No growth after 24 hours. Assessment and Plan (1) Influenza A: Status: Acute (2) Compression fracture: Status: Acute (3) Hypertensive urgency: Status: Acute Plan Pt is a 78-year-old female with a PMH significant for?Alzheimer's, HTN, COPD, adjustment disorder, and acute psychosis who presents to the ED from [facility] dementia unit after unwitnessed fall with suspected head strike as pt had dried blood around her nose. Pt will be admitted to the hospital for treatment and further evaluation of multiple issues, including acute hypoxic respiratory failure in the setting of acute influenza type a infection as well as hypertensive urgency and elevated troponins in the setting of likely intractable pain from compression fractures secondary to fall at home. 1.Acute hypoxic respiratory failure in the setting of acute influenza type a infection -sats stable on current O2 settings (2 L/min nasal cannula) -Tamiflu 75 mg b.i.d. x5 days -Titrate supplemental O2 >92, wean as tolerated 2. Multiple compression fractures -we will discuss with interventional in a.m. for likelihood of plasty -if appropriate is in agreement 3.Hypertensive urgency -acceptable control on outpatient therapies -aggressive pain management as tolerated likely driving hypertension 4.Alzheimer's dementia -advanced ... Discussed with wishes returned to [facility] when appropriate DNR Lovenox Patient will require ongoing hospitalization for supplemental O2 and further workup of compression fractures to ascertain acute versus chronic Quality Stroke Does the patient have a stroke diagnosis?: No VTE Prior VTE?: No VTE Risk Level:: Medical - moderate - high VTE Device Contraindication: Treatment Not Indicated VTE Drug Contraindication: N/A - Med Ordered
[2024-06-05] MEDS: Enoxaparin Sodium 40 MG/0.4 ML SYRINGE SUBCUT (14:59)
[2024-06-05] MEDS: LORazepam 2 MG/ML VIAL 0.5 MG IVPUSH ×2 (16:53→22:43)
[2024-06-06] VITALS (8 sets, daily range): BP systolic 142–218; BP diastolic 74–116; PULSE 77–118; RESP 17–19; TEMP 36.2–36.9; O2SAT 91–97
--- NOTE | 2024-06-06 | ECG_ITS ---
Test Reason : RHYTHM VERIFICATION Blood Pressure : */* mmHG Vent. Rate : 110 BPM Atrial Rate : * BPM P-R Int : * ms QRS Dur : 98 ms QT Int : 352 ms P-R-T Axes : * 156 -33 degrees QTcB Int : 476 ms Atrial fibrillation with rapid ventricular response Right axis deviation Incomplete right bundle branch block , plus right ventricular hypertrophy Biventricular hypertrophy with repolarization abnormality Abnormal ECG When compared with ECG of 04-Jun-2024 05:31, Atrial fibrillation has replaced Sinus rhythm Incomplete right bundle branch block is now Present Referred By: Oumou Duncan Electronically Signed By: SAMUEL BALTAZAR MD
[2024-06-06] MEDS: Morphine Sulfate 4 MG/ML CARTRIDGE IVPUSH ×2 (00:41→18:14)
[2024-06-06] MEDS: 0.9 % Sodium Chloride Flush 3 ML SYRINGE IVFLUSH ×4 (00:49→23:45)
[2024-06-06] MEDS: Labetalol HCL 100 MG/20 ML VIAL 20 MG IVPUSH (01:54)
[2024-06-06] MEDS: Metoprolol Tartrate 5 MG/5 ML VIAL IVPUSH (05:13)
[2024-06-06] MEDS: Oseltamivir Phosphate 75 MG CAPSULE PO ×2 (05:28→17:01)
[2024-06-06] MEDS: LORazepam 2 MG/ML VIAL 0.5 MG IVPUSH ×3 (06:35→21:34)
--- NOTE | 2024-06-06 10:38 | HO.PM.IMPN ---
Subjective Subjective Date of Service: 06/06/24 Interval History: Pt is a 77-year-old female with a PMH significant for?Alzheimer's, HTN, COPD, adjustment disorder, and acute psychosis who presents to the ED from SNF apparently complaining abdominal pain radiating up the right side and shoulders. Pt is sleeping soundly, not able to perform ROS. Pt is breathing appropriately with tele monitor on and noted to be in NSR, HR 87. Report that pt was in AFIB and required 5 mg IV Lopressor earlier this morning treated by overnight provider. Physical Exam Vital Signs: Vital Signs: Last Vital Signs Temp 97.1 F 06/06/24 07:12 Pulse 92 06/06/24 07:12 Resp 18 06/06/24 07:12 BP 151/112 H 06/06/24 07:12 Pulse Ox 96 06/06/24 07:12 O2 Del Method Nasal Cannula 06/06/24 07:12 O2 Flow Rate 2 06/06/24 07:12 BMI result Body Mass Index 21.4 Sleeping soundly, unable to complete ROS, RR 16, HR 87 on tele monitor Neuro: unable to complete neuro examination at this time, pt sleeping unable to participate EYES: PERRLA ENT: unable to evaluate hearing, ability to swallow Cardiac: S1 S2 RRR, no murmur, no JVD, no edema in Lower ext Pulmonary: lungs clear to ausculation B Abdominal: BS active in all 4 quadrants, no guarding, tenderness, rebounding MSK: unable to assess mobility as pt is sleeping :no bladder distension noted Extremities: no edema in lower extremities, PT and DP pulses palpable +2 Psych: pt resting comfortably, has noted advanced stage dementia Skin: bruising noted R knee no open wounds found in pt's resting state Objective Data Active Medications Acetaminophen (Acetaminophen 325 Mg Tablet) 650 mg PO Q6H PRN PRN Reason: Pain, Mild 1-3,fever,headache Calcium Carbonate (Calcium Carbonate 750 Mg Tab.Chew) 750 mg PO Q4H PRN PRN Reason: Heartburn Clonidine (Clonidine 0.1 Mg Patch.Tdwk) 0.1 mg TRANSDERMA TH@0900 [facility]; Protocol Last Admin: 06/05/24 00:33 Dose: Not Given Documented By: YANELIS Non-Admin Reason: Physician Held Med Enoxaparin Sodium (Enoxaparin Sodium 40 Mg/0.4 Ml Syringe) 40 mg SUBCUT Q24H [facility] Last Admin: 06/05/24 14:59 Dose: 40 mg Documented By: MARIAH Hydroxyzine HCl (Hydroxyzine Hcl 50 Mg/Ml Vial) 50 mg IM Q4H PRN PRN Reason: agitation Lorazepam (Lorazepam 2 Mg/Ml Vial) 0.5 mg IVPUSH Q4H PRN PRN Reason: anxiety/restlessness Last Admin: 06/06/24 06:35 Dose: 0.5 mg Documented By: NATALIA Magnesium Hydroxide (Milk Of Magnesia 30 Ml Oral.Susp) 30 ml PO DAILY PRN PRN Reason: Constipation Melatonin (Melatonin 3 Mg Tablet) 6 mg PO BEDTIME PRN PRN Reason: Insomnia Morphine Sulfate (Morphine Sulfate 4 Mg/Ml Cartridge) 4 mg IVPUSH Q4H PRN; Protocol PRN Reason: Restlessness, Severe Pain Last Admin: 06/06/24 00:41 Dose: 4 mg Documented By: NATALIA Ondansetron HCl (Ondansetron Hcl 4 Mg/2 Ml Vial) 4 mg IVPUSH Q8H PRN PRN Reason: Nausea and Vomiting Oseltamivir Phosphate (Oseltamivir Phosphate 75 Mg Capsule) 75 mg PO Q12H [facility] Last Admin: 06/06/24 05:28 Dose: 75 mg Documented By: JOSE RAUL Oxycodone HCl (Oxycodone Hcl Immed Release 5 Mg Tablet) 5 mg PO Q6H PRN PRN Reason: Pain, Moderate(Pain Scale 4-6) Sodium Chloride (0.9 % Sodium Chloride Flush 3 Ml Syringe) 3 ml IVFLUSH QSHIFT [facility] Last Admin: 06/06/24 09:21 Dose: 3 ml Documented By: SUASN Labs 06/04/24 05:44 06/05/24 05:58 Labs: Laboratory Results - last 24 hr 06/05/24 05:58 Anion Gap 19 Estim Creat Clear Calc 65.9 Estimated GFR > 60 Random Glucose 108 Calcium 9.7 D ECG Attestation: I personally reviewed and interpreted this ECG as follows: (AFIB ) ECG interpretation date: 06/06/24 Prior ECG tracings: available for review Microbiology Microbiology Results: Microbiology 06/04/24 09:05 Blood Culture - Preliminary Blood - Venous No growth after 24 hours. 06/04/24 09:05 Blood Culture - Preliminary Blood - Venous No growth after 24 hours. Assessment and Plan (1) New onset a-fib: Status: Acute (2) Compression fracture: Status: Acute (3) Influenza A: Status: Acute (4) Hypertensive urgency: Status: Acute (5) Elevated troponin: Status: Acute (6) Fall: Status: Chronic Plan Pt has extensive hx of dementia with noted falls and pain issues with past hx of compression fractures with evidence of new fractures this admission. Spouse wants pt to be comfortable. Dr. Peng reached out to neuro and they would like us to try to obtain limited thoracic and lumbar MRI if pt tolerated. Spouse is agreeable to this. Pt developed AFIB overnight and was treated. Noted elevated tropinins (likely ischemic demand) and pt cannot have BB or CCB due to listed allergies with no specific response. Cardiology consulted. 1. New onset AFIB (paroxysmal likely) cardiology consulted Checking TSH and MG Pt is on tele, currently in NSR Pt has listed allergies to BB, procaine so unable to give metoprolol pr cardizem (unclear of response to these medications, pt unable to clarify) CHADSVAD score noted of 6, pt high risk for AC due to number of falls 2. New spinal Compression fractures with known osteoporosis Ordering limited MRI thoracic and lumbar spine per neuro, pt su not be a good candidate for this Pain mgmt includes morphine and oxycodone, meds ordered for risk for constipation If unable to obtain MRIs, consider palliative care, comfort measures, discussed with pt's spouse 3. Influenza A Pt remains on precautions, no respiratory issues, fever Tamiflu day 3 Monitor 4. HTN BP intermittent elevated staying elevated today Pt continues on clonidine Adding lisinopril 10 mgs daily and hydralazine 10 IV once, prn Q6H for SBP > 160 Hx of allergy (non specific) to atenolol, rate remains 111 in AFIB, await cardiology review 5. Elevated troponins Likely ischemic demand, noted BNP, hx of CHF Cardiology consulted ECG no ischemic changes 6. falls Long hx of falls, secondary to deconditioning, advanced dementia Lovenox for DVT prophylaxis Plan is to review possible completion of MRI, review plan with spouse regarding possible palliative care Quality Stroke Does the patient have a stroke diagnosis?: No VTE Prior VTE?: No VTE Risk Level:: Medical - moderate - high VTE Device Contraindication: Treatment Not Indicated VTE Drug Contraindication: N/A - Med Ordered
--- NOTE | 2024-06-06 12:43 | P.CDIM_ITS ---
PROVIDER RESPONSE TEXT: To clarify, the appropriate diagnosis supported by the clinical indicators: Traumatic fracture: probable QUERY TEXT: PHYSICIAN'S DOCUMENTATION REQUEST Date of Query: 06/06/2024 09:57 AM EDT Patient Name: Natalia Tarango Admit Date: 06/04/2024 Dear Tee Peng DO, A review of the medical record indicates additional documentation may be needed. Please review below and update the documentation accordingly. Clinical Indicators: Progress notes 06/05/24: Multiple compression fractures secondary to fall at home. Suspected head strike, unwitnessed fall. Xray - severe age indeterminate compression fractures. H&P 06/04/24 - Imaging positive for compression fractures T12, L1, L4, L5. Please provide the following additional clarification regarding the fracture and any further specific s: Traumatic fracture possible, suspected, probable, cannot rule out etc. Pathologic fracture due to osteoporosis possible, suspected, probable etc. Non-traumatic fracture Other specified Other (explain) Clinically unable to determine (explain) Thank you, Kortney Pearce, CCS, CDIS Use of terms such as suspected, likely, concern for, or probable (associated with a specific diagnosi s that is being evaluated, monitored, or treated as if it exists) are acceptable and can be coded in the inpatient se tting, when documented at the time of discharge. Please use your independent medical judgment in providing your response. THIS QUERY IS PART OF THE PERMANENT MEDICAL RECORD
--- NOTE | 2024-06-06 13:06 | MHC.CM.PN ---
EMR REVIEWED, W/HYPERTENSIVE URGENCY/ NEW AFIB W/RVR, RECEIVED IV METOPROLOL EARLIER THIS AM, NO PLAN FOR DC AT THIS TIME, PLAN CONT'S TO BE FOR PT TO RETURN TO LTC AT [facility] ONCE MEDICALLY CLEARED, CM WILL CONT TO FOLLOW.
[2024-06-06] MEDS: hydrALAZINE HCl 20 MG/ML VIAL 10 MG IVPUSH (15:09)
[2024-06-06] MEDS: lisinopriL 10 MG TABLET PO (15:09)
[2024-06-06] MEDS: Enoxaparin Sodium 40 MG/0.4 ML SYRINGE SUBCUT (15:09)
[2024-06-06] MEDS: Acetaminophen 325 MG TABLET 650 MG PO (15:10)
[2024-06-06] MEDS: LORazepam 2 MG/ML VIAL 1 MG IVPUSH (16:47)
[2024-06-07] VITALS (8 sets, daily range): BP systolic 175–211; BP diastolic 73–117; PULSE 88–103; RESP 14–20; TEMP 36.3–37.3; O2SAT 94–96
[2024-06-07] MEDS: LORazepam 2 MG/ML VIAL 0.5 MG IVPUSH ×2 (03:34→13:58)
[2024-06-07] MEDS: Morphine Sulfate 4 MG/ML CARTRIDGE IVPUSH ×3 (06:15→20:08)
[2024-06-07 07:04] LABS: Basophils Absolute Auto 0.1 X10*3/uL (0.0-0.2); Basophils Percent Auto 0.4 % (0-2); Eosinophils Percent Auto 0.2 % (0-4); Hematocrit 44.8 % (37.0-47.0); Hemoglobin 14.9 g/dl (12.0-16.0); Imm Gran Abs Auto 0.14 X10*3/uL (0.00-0.03); Imm Gran Pct Auto 0.8 % (0.0-0.4); Lymphocytes Absolute Auto 0.8 X10*3/uL (1.2-4.9); Lymphocytes Percent Auto 4.5 % (20-40); MANUAL DIFF FLAG SCAN; Mean Corpuscular HGB Conc 33.3 g/dl (31.0-35.0); Mean Corpuscular Hemoglobin 30.8 pg (27.0-33.0); Mean Corpuscular Volume 92.6 fL (80.0-98.0); Monocytes Absolute Auto 1.5 X10*3/uL (0.1-1.2); Neutrophils Absolute Auto 14.2 x10*3/uL (2.0-8.3); Neutrophils Percent Auto 85.1 % (45-73); PLT CLUMP 1; Red Blood Count 4.84 X10*6/uL (4.20-5.50); Red Cell Distribution Width 13.8 % (11.0-16.0); SCAN SMEAR FLAG 1
[2024-06-07] MEDS: hydrALAZINE HCl 20 MG/ML VIAL 10 MG IVPUSH ×2 (07:40→20:07)
[2024-06-07 08:07] LABS: Platelet Count 381 X10*3/uL (160-400); White Blood Count 16.7 X10*3/uL (4.8-10.8)
[2024-06-07 08:08] LABS: SLIDE REVIEW VERIFIED
[2024-06-07] MEDS: 0.9 % Sodium Chloride Flush 3 ML SYRINGE IVFLUSH ×3 (09:16→20:08)
--- NOTE | 2024-06-07 09:31 | P.PNIM_ITS ---
Subjective Subjective Date of Service: 06/07/24 Interval History: Pt is a 78 yo female hospital day #4 with PMH severe dementia, chronic compression fractures, osteoporois, HTN, HLD admitted from [facility] dementia unit after unwitnessed fall with suspected head strike as pt had dried blood around her nose. Pt has since been nonverbal. Pt is not able to take po intake very well. Spouse is involved and is contemplating pallaitive care. Dr. Peng contact IR yesterday and MRI of thoracic and Lumbar spine were requested. Pt does have new acute findings and working with IR to see if anything can be done. Review of Systems Pt is nonverbal, unable to complete ROS. Review of Systems: Yes Unobtainable due to mental condition Physical Exam 2 Vital Signs: Vital Signs: Last Vital Signs Temp 99.2 F 06/07/24 07:12 Pulse 96 06/07/24 07:12 Resp 20 06/07/24 07:12 BP 210/100 H 06/07/24 08:20 Pulse Ox 95 06/07/24 07:12 O2 Del Method Nasal Cannula 06/07/24 07:12 O2 Flow Rate 2 06/07/24 07:12 BMI result Body Mass Index 21.4 Pt is moving arms, not following commands or opening eyes to name (pt has advanced dementia) Neuro: unable to complete neuro exam pt is nonverbal EYES: PERRLA bruising noted face and eyes ENT: Pt is not able to swallow and take oral pills. Thyroid normal in size on exam. Cardiac: S1 S2 RRR, no murmur, no JVD, no edema in Lower ext Pulmonary: lungs diminished B Abdominal: BS active in all 4 quadrants, no guarding, tenderness, rebounding. No distension noted. MSK: pt moving only upper extremities n tends to lie on Right side only : no bladder distension Extremities: no edema in lower extremities, PT and DP pulses palpable +2 Psych: pt somnolent, non verbal Skin: bruising noted B lower and upper ext, not new, in healing stages Objective Data Active Medications Acetaminophen (Acetaminophen 325 Mg Tablet) 650 mg PO Q6H PRN PRN Reason: Pain, Mild 1-3,fever,headache Last Admin: 06/06/24 15:10 Dose: 650 mg Documented By: SUSAN Calcium Carbonate (Calcium Carbonate 750 Mg Tab.Chew) 750 mg PO Q4H PRN PRN Reason: Heartburn Clonidine (Clonidine 0.1 Mg Patch.Tdwk) 0.1 mg TRANSDERMA TH@0900 [facility]; Protocol Last Admin: 06/05/24 00:33 Dose: Not Given Documented By: YANELIS Non-Admin Reason: Physician Held Med Dexamethasone Sodium Phosphate (Dexamethasone Sod Phosphate 4 Mg/Ml Vial) 6 mg IVPUSH ONCE ONE Stop: 06/07/24 09:28 Enoxaparin Sodium (Enoxaparin Sodium 40 Mg/0.4 Ml Syringe) 40 mg SUBCUT Q24H [facility] Last Admin: 06/06/24 15:09 Dose: 40 mg Documented By: SUSAN Hydralazine HCl (Hydralazine Hcl 20 Mg/Ml Vial) 10 mg IVPUSH Q6H PRN; Protocol PRN Reason: SBP > 160 Last Admin: 06/07/24 07:40 Dose: 10 mg Documented By: CUAUHTEMOC Hydroxyzine HCl (Hydroxyzine Hcl 50 Mg/Ml Vial) 50 mg IM Q4H PRN PRN Reason: agitation Ketorolac Tromethamine (Ketorolac Tromethamine 15 Mg/Ml Vial) 15 mg IVPUSH ONCE ONE Stop: 06/07/24 09:28 Lisinopril (Lisinopril 10 Mg Tablet) 10 mg PO DAILY [facility]; Protocol Last Admin: 06/06/24 15:09 Dose: 10 mg Documented By: SUSAN Lorazepam (Lorazepam 2 Mg/Ml Vial) 0.5 mg IVPUSH Q4H PRN PRN Reason: anxiety/restlessness Last Admin: 06/07/24 03:34 Dose: 0.5 mg Documented By: NATALIA Magnesium Hydroxide (Milk Of Magnesia 30 Ml Oral.Susp) 30 ml PO DAILY PRN PRN Reason: Constipation Melatonin (Melatonin 3 Mg Tablet) 6 mg PO BEDTIME PRN PRN Reason: Insomnia Morphine Sulfate (Morphine Sulfate 4 Mg/Ml Cartridge) 4 mg IVPUSH Q4H PRN; Protocol PRN Reason: Restlessness, Severe Pain Last Admin: 06/07/24 06:15 Dose: 4 mg Documented By: JOSE RAUL Ondansetron HCl (Ondansetron Hcl 4 Mg/2 Ml Vial) 4 mg IVPUSH Q8H PRN PRN Reason: Nausea and Vomiting Oseltamivir Phosphate (Oseltamivir Phosphate 75 Mg Capsule) 75 mg PO Q12H [facility] Last Admin: 06/06/24 17:01 Dose: 75 mg Documented By: SUSAN Oxycodone HCl (Oxycodone Hcl Immed Release 5 Mg Tablet) 5 mg PO Q6H PRN PRN Reason: Pain, Moderate(Pain Scale 4-6) Sodium Chloride (0.9 % Sodium Chloride Flush 3 Ml Syringe) 3 ml IVFLUSH QSHIFT [facility] Last Admin: 06/07/24 09:16 Dose: 3 ml Documented By: CUAUHTEMOC Labs 06/07/24 06:36 06/07/24 08:55 Labs: Laboratory Results - last 24 hr 06/07/24 06:36 MCV 92.6 MCH 30.8 MCHC 33.3 RDW 13.8 Plt Count 381 MPV Not Reportable Immature Gran % (Auto) 0.8 H Neut % (Auto) 85.1 H Lymph % (Auto) 4.5 L [place] % (Auto) 9.0 Eos % (Auto) 0.2 Baso % (Auto) 0.4 Lymph # (Auto) 0.8 L [place] # (Auto) 1.5 H Eos # (Auto) 0.0 Baso # (Auto) 0.1 Abs Immat Gran (auto) 0.14 H Absolute Neuts (auto) 14.2 H Absolute Nucleated RBC 0.000 Nucleated RBC % (auto) 0.0 Smear Tech's Comments VERIFIED Imaging Lumbar MRI: My impression: MPRESSION: 1. Motion artifact limits evaluation of the portions of the study. 2. Chronic superior endplate compression fractures of the L1, L4 and L5 vertebral bodies. 3. Moderate spinal canal stenosis at L3-4. 4. Mild spinal canal stenosis at L4-5. 5. Moderate multilevel spondylosis with multilevel neural foraminal narrowing. 6. Acute anterior superior endplate compression fracture of the T12 vertebral body with approximately 30 percent height loss. Thoarcic MRI: Radiologist's impression: IMPRESSION: 1. Acute superior endplate compression fracture of the T11 vertebral body with approximately 30 percent height loss. No retropulsion into the canal. 2. Inferior endplate compression fracture of T7 with approximately 30 percent height loss. Mild edema along the inferior endplate may represent a subacute fracture versus Modic type 1 degenerative endplate changes. 3. Chronic superior endplate compression fracture of the T12 vertebral body with approximately 30 percent height loss. 4. Well-defined lesion within the T3 vertebral body measuring 6 mm most likely represents an atypical hemangioma. No aggressive features identified. 5. Mild mid to lower thoracic spondylosis. Microbiology Microbiology Results: Microbiology 06/04/24 09:05 Blood Culture - Preliminary Blood - Venous No growth after 48 hours. 06/04/24 09:05 Blood Culture - Preliminary Blood - Venous No growth after 48 hours. Assessment and Plan (1) New onset a-fib: Status: Acute (2) Elevated troponin: Status: Acute (3) Hypertensive urgency: Status: Acute (4) Fall: Status: Chronic (5) Compression fracture: Status: Acute (6) Influenza A: Status: Acute (7) AD (Alzheimer's disease): Status: Acute Plan Pt has extensive hx of dementia with noted falls and pain issues with past hx of compression fractures with evidence of new fractures this admission. Spouse wants pt to be comfortable. Dr. Peng reached out to IR and we were able to obtain limited thoracic and lumbar MRI per Dr. Niño. New acute findings found and message is currently pending with Dr. Meraz from IR for review. Pt developed AFIB 2 days ago and was seen by cardiology today and agrees with IV metoprolol but no AC due to pt's fall risk. Noted elevated troponins (likely ischemic demand). TSH and MG are stable. HTN persists, adding IV metoprolol and catapres patch resumed with hydralazine prn. 1. New onset AFIB (paroxysmal likely) 06/05 cardiology consulted - agrees with IV loipressor 5 mg Q6H with parameters, no AC due to pt's high fall risk TSH and MG WNL Pt is on tele, currently in NSR with bouts of AFIB CHADSVAD score noted of 6, pt high risk for AC due to number of falls and cardiology does not recommend AC at this time 2. New spinal Compression fractures with known osteoporosis MRI completed, noted acute findings involving T7 and T11, message out to Dr. Meraz (per Dr Peng) in IR for review. Pain mgmt includes morphine and oxycodone, meds ordered for risk for constipation. Pt is having more difficult time with po intake. Added one regimen of toradol and decadron to help with pain mgmt. Await review with IR to see if anything more can be done. If not, plan to discuss palliative care with spouse. Pt would likely return to if possible for end of life care. Will review with CM and update MOLST as needed. 3. Influenza A Pt remains on precautions, no respiratory issues, fever Tamiflu day 4 Monitor has multiple health issues and is not able to visit in person in fear that he may get the flu 4. HTN with urgency BP intermittent elevated staying elevated today May be secondary to pain issues and pt's inability to communicate needs due to dementia Pain mgmt upgraded, added toradol and decadron X1, increased frequncy on IV naroctic, adding topical if available, diclofenac po BID Pt resumed clonidine patch today, unaware patch was held prior per nursing Adding lisinopril 10 mgs daily and hydralazine 10 IV once, prn Q6H for SBP > 160 Cardiology agreed with Lopressor 5 IV Q6H with parameters. Can consider nitropaste if needed 5. Elevated troponins Likely ischemic demand, noted BNP, hx of CHF Cardiology consulted ECG no ischemic changes 6. falls Long hx of falls, secondary to deconditioning, advanced dementia Noted compression fractures, acute findings found via MRI, aware IR review and will discuss with pt's spouse 7. Advanced stage Dementia Pt is having more difficulty with swallowing, sleeping more often Reviewing overall plan with spouse once review of MRI thoracic spine is completed SPouse is leaning towards palliative care Ativan and hydroxyzine prn pain mgmt Lovenox for DVT prophylaxis Await review of MRI with IR (per Dr Peng) and will discuss plan with spouse on options of care. Goal is to provide comfort via IV medications and control BP with patch and IV medication. Pt meets criteria for continued admission due to clinical presentation, current medical needs requiring IV mediation. Pt may transition to palliative care per and MOLST will need to be updated. Currently DNR only. CM will be discussing options with pt's spouse. Total time managing care of this patient today: 40 minutes. Quality Stroke Does the patient have a stroke diagnosis?: No Reason for No Anti-thrombotic by Day Two: N/A - Med Ordered VTE Prior VTE?: No VTE Risk Level:: Medical - moderate - high VTE Device Contraindication: Treatment Not Indicated VTE Drug Contraindication: N/A - Med Ordered
--- NOTE | 2024-06-07 09:53 | HO.WOUND ---
Wound Consult: Initial 78yr old female? admitted to [facility] on 06/04/24 - See progress notes and H&P for detailed history.? Wound consult placed for Bruising throughout body.? Discussed with direct care nurse - she reports bruising is consistent with s/p fall at home and not in areas of pressure related injury. Skin not assessed - direct care team reports she is incontinent and barrier creams in use along with Q2hr turns however patient is very active in bed according to sitter at bedside. Recommend adding MARIJA pump to mattress. No other new topical recommendations needed at this time.
[2024-06-07] MEDS: Ketorolac Tromethamine 15 MG/ML VIAL IVPUSH (09:56)
[2024-06-07] MEDS: dexAMETHasone sod phosphate 4 MG/ML VIAL 6 MG IVPUSH (09:56)
[2024-06-07 09:59] LABS: Alanine Aminotransferase 12 U/L (0-31); Albumin Level 4.2 g/dL (3.5-5.0); Alkaline Phosphatase 91 U/L (39-117); Anion Gap 14 (12-20); Aspartate Amino Transferase 32 U/L (5-31); Bilirubin Total 1.1 mg/dL (0.0-1.0); Blood Urea Nitrogen 26 mg/dL (9-16); Calcium 10.5 mg/dL (8.4-10.2); Carbon Dioxide 26 mmol/L (22-29); Chloride 110 mmol/L (96-108); Creatinine Clr Calc Pharmacy 59.7; Estimated Glomerular Filt Rate > 60; Glucose Random 118 mg/dL (60-115); Magnesium 2.3 mg/dL (1.6-2.6); Potassium 3.2 mmol/L (3.3-5.1); Sodium 147 mmol/L (135-145); Total Protein 7.7 g/dL (6.5-8.0)
[2024-06-07 10:02] LABS: TSH reflex Free T4 1.32 uIU/mL (0.32-4.0)
--- NOTE | 2024-06-07 10:14 | P.CONCA_ITS ---
History of Present Illness History of Present Illness Date of Service: 06/07/24 Requesting physician: Puja Turpin Consult reason: hypertension and atrial fibrillation Chief complaint: Hypertensive urgency Narrative: I was consulted to see Natalia in cardiology consultation today for noted atrial fibrillation on the monitor as well as hypertension. I could not obtain any history from the patient who has advanced dementia and is nonverbal. However patient was brought from [facility] unit at a [facility] facility after being found on the ground. Since then patient has been here and has been agitated. Subsequently found to have compression fractures which is potentially causing her to have a lot of pain although this is difficult to assess. Patient was noted to have episodes of atrial fibrillation and cardiology consult was sought. There were no obvious symptoms during these episodes. Patient also has not been getting a blood pressure medications for unclear reason at a blood pressure is significantly elevated with hypertensive urgency. There was no overt signs of heart failure. An overt signs of myocardial ischemia. Review of Systems 2 Review of Systems: Yes Unobtainable due to mental status Neurologic: Reports confusion Psychiatric: Psychiatric: Reports confusion PMFSH Past Medical History Medical History Pruritus Hyperlipidemia Insomnia HTN (hypertension) Congestive heart failure COPD (chronic obstructive pulmonary disease) Anemia AD (Alzheimer's disease) Adjustment disorder Social History Social History Household Members: Unknown / Unable to assess Housing: [facility] Do you presently have visiting nurse or other home services: No Unable to assess alcohol history related to: Unknown Alcohol intake: unknown Comment: Sitter Patient Tobacco Use Status: Tobacco use Unknown Use of substances other than those prescribed or required for medical reasons: Refusing to respond Currently Displaying Signs/Symptoms of Drug Intoxication Withdrawal: No Advance Directives: Yes Advance Directives on File: No Advance Directives Date on File: 11/09/22 Do you have a plan to hurt others: No Plan Patient : No service: No Meds Allergies Allergy/AdvReac Type Severity Reaction Status Date / Time epinephrine [EPINEPHRINE] Allergy Unknown UNKNOWN Verified 06/04/24 05:22 levofloxacin [LEVOFLOXACIN] Allergy Unknown UNKNOWN Verified 06/04/24 05:22 procaine [From NOVOCAIN] Allergy Unknown UNKNOWN Verified 06/04/24 05:22 codeine [Codeine] AdvReac Mild VOMITING Verified 06/04/24 05:22 hydrocortisone AdvReac Mild HIGH BP Verified 06/04/24 05:22 [From Cortizone-10] atenolol [ATENOLOL] AdvReac Unknown UNKNOWN Verified 06/04/24 05:22 lidocaine [LIDOCAINE] AdvReac Unknown UNKNOWN Verified 06/04/24 05:22 sulfamethizole AdvReac Unknown UNKNOWN Verified 06/04/24 05:22 [SULFAMETHIZOLE] Active Medications: Current Medications Acetaminophen (Acetaminophen 325 Mg Tablet) 650 mg PO Q6H PRN PRN Reason: Pain, Mild 1-3,fever,headache Last Admin: 06/06/24 15:10 Dose: 650 mg Calcium Carbonate (Calcium Carbonate 750 Mg Tab.Chew) 750 mg PO Q4H PRN PRN Reason: Heartburn Clonidine (Clonidine 0.1 Mg Patch.Tdwk) 0.1 mg TRANSDERMA Tu@0900 [facility]; Protocol Enoxaparin Sodium (Enoxaparin Sodium 40 Mg/0.4 Ml Syringe) 40 mg SUBCUT Q24H [facility] Last Admin: 06/06/24 15:09 Dose: 40 mg Hydralazine HCl (Hydralazine Hcl 20 Mg/Ml Vial) 10 mg IVPUSH Q6H PRN; Protocol PRN Reason: SBP > 160 Last Admin: 06/07/24 07:40 Dose: 10 mg Hydroxyzine HCl (Hydroxyzine Hcl 50 Mg/Ml Vial) 50 mg IM Q4H PRN PRN Reason: agitation Lisinopril (Lisinopril 10 Mg Tablet) 10 mg PO DAILY [facility]; Protocol Last Admin: 06/06/24 15:09 Dose: 10 mg Lorazepam (Lorazepam 2 Mg/Ml Vial) 0.5 mg IVPUSH Q4H PRN PRN Reason: anxiety/restlessness Last Admin: 06/07/24 03:34 Dose: 0.5 mg Magnesium Hydroxide (Milk Of Magnesia 30 Ml Oral.Susp) 30 ml PO DAILY PRN PRN Reason: Constipation Melatonin (Melatonin 3 Mg Tablet) 6 mg PO BEDTIME PRN PRN Reason: Insomnia Morphine Sulfate (Morphine Sulfate 4 Mg/Ml Cartridge) 4 mg IVPUSH Q4H PRN; Protocol PRN Reason: Restlessness, Severe Pain Last Admin: 06/07/24 06:15 Dose: 4 mg Ondansetron HCl (Ondansetron Hcl 4 Mg/2 Ml Vial) 4 mg IVPUSH Q8H PRN PRN Reason: Nausea and Vomiting Oseltamivir Phosphate (Oseltamivir Phosphate 75 Mg Capsule) 75 mg PO Q12H [facility] Last Admin: 06/06/24 17:01 Dose: 75 mg Oxycodone HCl (Oxycodone Hcl Immed Release 5 Mg Tablet) 5 mg PO Q6H PRN PRN Reason: Pain, Moderate(Pain Scale 4-6) Sodium Chloride (0.9 % Sodium Chloride Flush 3 Ml Syringe) 3 ml IVFLUSH QSHIFT [facility] Last Admin: 06/07/24 09:16 Dose: 3 ml Home Medications ?Medication ?Instructions ?Recorded ?Confirmed ?Last Taken ?Type clonidine 0.1 mg/24 hr weekly 1 patch topical TH@0900 06/04/24 06/04/24 06/02/24 History transdermal patch Physical Exam 2 Vital Signs: Vital Signs: Last Vital Signs Temp 99.2 F 06/07/24 07:12 Pulse 96 06/07/24 07:12 Resp 20 06/07/24 07:12 BP 210/100 H 06/07/24 08:20 Pulse Ox 95 06/07/24 07:12 O2 Del Method Nasal Cannula 06/07/24 07:12 O2 Flow Rate 2 06/07/24 07:12 BMI result Body Mass Index 21.4 Const: General: confusion Nutritional Appearance: thin O rientation/consciousness: confusion HEENT: Head: Yes other (Facial ecchymosis) Neck: Neck: Yes trachea midline, Yes supple and Yes no JVD Resp: Effort & Inspection: decreased respiratory effort Auscultation: clear to auscultation bilaterally Cardio: Rate: regular rate Rhythm: regular rhythm Heart sounds: S1 normal heart sound present, S2 normal heart sound present, no click, no gallops and Murmur heart sound present systolic GI: Auscultation: normal bowel sounds Skin: General skin exam: ecchymosis Neuro: General: confusion Objective Labs and Meds 06/07/24 06:36 06/07/24 08:55 Lab results: Laboratory Results - last 24 hr 06/07/24 06/07/24 06:36 08:55 WBC 16.7 H RBC 4.84 Hgb 14.9 Hct 44.8 MCV 92.6 MCH 30.8 MCHC 33.3 RDW 13.8 Plt Count 381 MPV Not Reportable Immature Gran % (Auto) 0.8 H Neut % (Auto) 85.1 H Lymph % (Auto) 4.5 L [place] % (Auto) 9.0 Eos % (Auto) 0.2 Baso % (Auto) 0.4 Lymph # (Auto) 0.8 L [place] # (Auto) 1.5 H Eos # (Auto) 0.0 Baso # (Auto) 0.1 Abs Immat Gran (auto) 0.14 H Absolute Neuts (auto) 14.2 H Absolute Nucleated RBC 0.000 Nucleated RBC % (auto) 0.0 Smear Tech's Comments VERIFIED Sodium 147 H Potassium 3.2 L Chloride 110 H Carbon Dioxide 26 Anion Gap 14 BUN 26 H Creatinine 0.75 Estim Creat Clear Calc 59.7 Estimated GFR > 60 Random Glucose 118 H Calcium 10.5 H D Magnesium 2.3 Total Bilirubin 1.1 H AST 32 H ALT 12 Alkaline Phosphatase 91 Total Protein 7.7 Albumin 4.2 TSH 1.32 Assessment and Plan (1) New onset a-fib: Status: Acute Patient with new onset atrial fibrillation converted to sinus rhythm with frequent PACs and some PVCs. Most likely due to hyperdynamic state from her significant pain. Pain control needs to be pursued. Given her advanced dementia and fall risk and admission fall she was not a good candidate for oral anticoagulation therapy. I would consider giving her metoprolol given her elevated heart rate and blood pressure to counter the effect of stress hormones on the heart with metoprolol 5 mg IV push q.6 hours. Not sure if she will be able to establish oral route but once establish can switch her to oral metoprolol therapy as well. (2) Hypertensive urgency: Status: Acute Hypertensive urgency most likely precipitated by her acute pain and withdrawal of her antihypertensive medications. Start metoprolol as above. Can resume clonidine transdermal patch to help with her blood pressure. Can use IV hydralazine p.r.n. for significantly elevated blood pressure. Overall prognosis is guarded. Will sign of the case. Thank you for allowing me to partake in her care Procedures Date of Service Date of Service: 06/07/24
--- NOTE | 2024-06-07 12:28 | MHC.SLORD ---
Speech Language Pathology Order Status: MOTION PICTURE PHOTOGRAPHER attempted bedside swallow evaluation early this afternoon. Pt lethargic; not awake/alert enough to participate. Pt intermittently opened mouth. Attempted ice chip and trace amount of applesauce which pt did not appear to swallow. Requried manual sweep to remove residue. Oral care provided. Nursing reports that pt choked on applesauce earlier this AM. NPO recommended at this time. Nursing to [place] [employer]ION PICTURE PHOTOGRAPHER if pt's status changes to better participate in eval.
[2024-06-07] MEDS: Metoprolol Tartrate 5 MG in 0.9 % Sodium Chloride 50 ML 220 MG IV ×2 (12:32→17:57)
--- NOTE | 2024-06-07 13:53 | MHC.CM.PN ---
Provider informed CM that pt.'s HCP would like to seek Hospice services at this time, Provider in agreement. Referral into [facility], DCP: [facility] Hosp[facility] services.
[2024-06-07 14:15] LABS: Glucose, Whole Blood 132 mg/dL (60-115)
--- NOTE | 2024-06-07 15:19 | PC.NURSE ---
Metoprolol IV ordered. Text sent to provider regarding concerns of atenolol allergy. Received message from provider no issues per cardiology. Intermittently receiving morphine and ketorolac for back pain. Medicated with ativan at the request of provider for restlessness. BP rechecked at 1344 186/93 on right calf. Provider aware. Transdermal clonidine ordered and awaiting medication from pharmacy.
[2024-06-07] MEDS: hydrOXYzine HCL 50 MG/ML VIAL IM (15:56)
[2024-06-07] MEDS: Enoxaparin Sodium 40 MG/0.4 ML SYRINGE SUBCUT (15:57)
[2024-06-07] MEDS: cloNIDine 0.1 MG PATCH.TDWK TRANSDERMA (16:02)
[2024-06-08] VITALS (9 sets, daily range): BP systolic 131–205; BP diastolic 64–98; PULSE 72–115; RESP 16–20; TEMP 36.2–37; O2SAT 94–100
[2024-06-08] MEDS: Metoprolol Tartrate 5 MG in 0.9 % Sodium Chloride 50 ML 220 MG IV ×5 (00:24→22:10)
[2024-06-08] MEDS: LORazepam 2 MG/ML VIAL 0.5 MG IVPUSH ×2 (00:34→04:38)
[2024-06-08] MEDS: hydrALAZINE HCl 20 MG/ML VIAL 10 MG IVPUSH (07:44)
[2024-06-08] MEDS: lisinopriL 10 MG TABLET PO (07:44)
[2024-06-08] MEDS: 0.9 % Sodium Chloride Flush 3 ML SYRINGE IVFLUSH ×3 (07:46→20:01)
[2024-06-08] MEDS: Morphine Sulfate 4 MG/ML CARTRIDGE IVPUSH ×2 (08:01→19:58)
[2024-06-08 08:41] LABS: Basophils Percent Auto 0.2 % (0-2); Hematocrit 44.3 % (37.0-47.0); Hemoglobin 14.5 g/dl (12.0-16.0); Imm Gran Abs Auto 0.13 X10*3/uL (0.00-0.03); Imm Gran Pct Auto 0.7 % (0.0-0.4); Lymphocytes Absolute Auto 0.8 X10*3/uL (1.2-4.9); Lymphocytes Percent Auto 4.2 % (20-40); MANUAL DIFF FLAG SCAN; Mean Corpuscular HGB Conc 32.7 g/dl (31.0-35.0); Mean Corpuscular Hemoglobin 30.1 pg (27.0-33.0); Mean Corpuscular Volume 92.1 fL (80.0-98.0); Mean Platelet Volume 10.9 fL (9.4-12.3); Monocytes Absolute Auto 1.7 X10*3/uL (0.1-1.2); Monocytes Percent Auto 8.8 % (2-11); Neutrophils Absolute Auto 16.2 x10*3/uL (2.0-8.3); Neutrophils Percent Auto 86.1 % (45-73); Platelet Count 437 X10*3/uL (160-400); Red Blood Count 4.81 X10*6/uL (4.20-5.50); SCAN SMEAR FLAG 1; White Blood Count 18.8 X10*3/uL (4.8-10.8)
[2024-06-08 08:57] LABS: Anion Gap 13 (12-20); Blood Urea Nitrogen 42 mg/dL (9-16); Calcium 10.7 mg/dL (8.4-10.2); Carbon Dioxide 29 mmol/L (22-29); Chloride 111 mmol/L (96-108); Creatinine Clr Calc Pharmacy 55.3; Estimated Glomerular Filt Rate > 60; Glucose Random 124 mg/dL (60-115); Potassium 3.2 mmol/L (3.3-5.1); Sodium 150 mmol/L (135-145)
[2024-06-08 09:20] LABS: SLIDE REVIEW VERIFIED
--- NOTE | 2024-06-08 09:48 | P.PNIM_ITS ---
Subjective Subjective Date of Service: 06/08/24 Interval History: BP intermittently controlled with current regimen. No bradycardia noted. Pt's NA 147, K 3.2 and noted leukocytosis. Pt unable to do CXR, cannot lie flat.Lungs without adventitious sounds. Requesting UA/ C/s and then starting ceftriaxone empirically. No BM over many days per nursing. ABD exam benigh, ordered dulcolax NC. Plan is for pt to return to [facility] and pt will transition to hospice care there. [facility] DNR only currently. Pt is not a candidate for surgical intervention for acute decompression fractures and spouse indicated he would not want pt to have any interventions as she has suffered so much over the last year. Review of Systems Unable to elicit review of systems due to patient's cognitive deficits Review of Systems: Yes Unobtainable due to mental condition (dementia ) Physical Exam 2 Vital Signs: Vital Signs: Last Vital Signs Temp 97.6 F 06/08/24 07:08 Pulse 100 06/08/24 07:08 Resp 20 06/08/24 07:08 BP 190/98 H 06/08/24 07:50 Pulse Ox 96 06/08/24 07:08 O2 Del Method Nasal Cannula 06/08/24 07:08 O2 Flow Rate 3 06/08/24 07:08 BMI result Body Mass Index 21.4 Non verbal, pt will open eyes momentarily. Pt was able to attempt to sit self up twice and then placed head on pillow to rest. Oral care is being provided. Neuro: unable to complete neuro exam due to pt's cognitive deficits EYES: PERRLA, bruising around both eyes, healing stage ENT: pt was able to take meds with applesauce, could not participate in ST eval due to cognitive level Cardiac: S1 S2 irregular, rate 88, no murmur, no JVD, no edema in Lower ext Pulmonary: lungs diminshed B, no adventitous sounds Abdominal: BS active in all 4 quadrants, no guarding, tenderness, rebounding MSK: unable to assess strength, pt not following commands : no bladder distension, periwick in place Extremities: no edema in lower extremities, PT and DP pulses palpable +2 Psych: unable to assess Skin: multiple areas of bruising s/p fall, B knees, facial no decubitus ulcers noted Objective Data Active Medications Acetaminophen (Acetaminophen 325 Mg Tablet) 650 mg PO Q6H PRN PRN Reason: Pain, Mild 1-3,fever,headache Last Admin: 06/06/24 15:10 Dose: 650 mg Documented By: SUSAN Calcium Carbonate (Calcium Carbonate 750 Mg Tab.Chew) 750 mg PO Q4H PRN PRN Reason: Heartburn Clonidine (Clonidine 0.1 Mg Patch.Tdwk) 0.1 mg TRANSDERMA Tu@0900 [facility]; Protocol Last Admin: 06/07/24 16:02 Dose: 0.1 mg Documented By: CUAUHTEMOC Diclofenac Sodium (Diclofenac Sodium Delayed Rel 50 Mg Tablet.) 50 mg PO BIDWM [facility] Last Admin: 06/08/24 07:50 Dose: Not Given Documented By: CUAUHTEMOC Non-Admin Reason: unable to crush Enoxaparin Sodium (Enoxaparin Sodium 40 Mg/0.4 Ml Syringe) 40 mg SUBCUT Q24H [facility] Last Admin: 06/07/24 15:57 Dose: 40 mg Documented By: CUAUHTEMOC Furosemide (Furosemide 20 Mg/2 Ml Vial) 20 mg IVPUSH DAILY [facility]; Protocol Hydralazine HCl (Hydralazine Hcl 20 Mg/Ml Vial) 10 mg IVPUSH Q6H PRN; Protocol PRN Reason: SBP > 160 Last Admin: 06/08/24 07:44 Dose: 10 mg Documented By: CUAUHTEMOC Hydroxyzine HCl (Hydroxyzine Hcl 50 Mg/Ml Vial) 50 mg IM Q4H PRN PRN Reason: agitation Last Admin: 06/07/24 15:56 Dose: 50 mg Documented By: CUAUHTEMOC Metoprolol Tartrate 5 mg/ (Sodium Chloride) 55 mls @ 220 mls/hr IV Q6H [facility]; Protocol Last Infusion: 06/08/24 06:14 Dose: Infused Documented By: SHARYN Potassium Chloride/Dextrose (Kcl 20 Meq In 5 % Dextrose) 20 meq in 1,000 mls @ 100 mls/hr IVCONT .Q10H [facility] Lisinopril (Lisinopril 10 Mg Tablet) 10 mg PO DAILY [facility]; Protocol Last Admin: 06/08/24 07:44 Dose: 10 mg Documented By: ORI Lorazepam (Lorazepam 2 Mg/Ml Vial) 0.5 mg IVPUSH Q4H PRN PRN Reason: anxiety/restlessness Last Admin: 06/08/24 04:38 Dose: 0.5 mg Documented By: SHARYN Magnesium Hydroxide (Milk Of Magnesia 30 Ml Oral.Susp) 30 ml PO DAILY PRN PRN Reason: Constipation Melatonin (Melatonin 3 Mg Tablet) 6 mg PO BEDTIME PRN PRN Reason: Insomnia Morphine Sulfate (Morphine Sulfate 4 Mg/Ml Cartridge) 4 mg IVPUSH Q4H PRN; Protocol PRN Reason: Restlessness, Severe Pain Last Admin: 06/08/24 08:01 Dose: 4 mg Documented By: CUAUHTEMOC Ondansetron HCl (Ondansetron Hcl 4 Mg/2 Ml Vial) 4 mg IVPUSH Q8H PRN PRN Reason: Nausea and Vomiting Oseltamivir Phosphate (Oseltamivir Phosphate 75 Mg Capsule) 75 mg PO Q12H [facility] Last Admin: 06/08/24 05:39 Dose: Not Given Documented By: SHARYN Non-Admin Reason: NPO Oxycodone HCl (Oxycodone Hcl Immed Release 5 Mg Tablet) 5 mg PO Q6H PRN PRN Reason: Pain, Moderate(Pain Scale 4-6) Sodium Chloride (0.9 % Sodium Chloride Flush 3 Ml Syringe) 3 ml IVFLUSH QSHIFT [facility] Last Admin: 06/08/24 07:46 Dose: 3 ml Documented By: CUAUHTEMOC Labs 06/08/24 08:31 06/08/24 08:31 Labs: Laboratory Results - last 24 hr 06/07/24 06/07/24 06/08/24 08:55 14:05 08:31 MCV 92.1 MCH 30.1 MCHC 32.7 RDW 14.0 Plt Count 437 H MPV 10.9 Immature Gran % (Auto) 0.7 H Neut % (Auto) 86.1 H Lymph % (Auto) 4.2 L [place] % (Auto) 8.8 Eos % (Auto) 0.0 Baso % (Auto) 0.2 Lymph # (Auto) 0.8 L [place] # (Auto) 1.7 H Eos # (Auto) 0.0 Baso # (Auto) 0.0 Abs Immat Gran (auto) 0.13 H Absolute Neuts (auto) 16.2 H Absolute Nucleated RBC 0.000 Nucleated RBC % (auto) 0.0 Smear Tech's Comments VERIFIED Anion Gap 14 13 Estim Creat Clear Calc 59.7 55.3 Estimated GFR > 60 > 60 POC Glucose 132 H Random Glucose 118 H 124 H Calcium 10.5 H D 10.7 H Magnesium 2.3 Total Bilirubin 1.1 H AST 32 H ALT 12 Alkaline Phosphatase 91 Total Protein 7.7 Albumin 4.2 TSH 1.32 Assessment and Plan (1) Hypernatremia: Status: Acute (2) Hypokalemia: Status: Acute (3) Leukocytosis: Status: Acute (4) Dysphagia: Status: Chronic (5) New onset a-fib: Status: Acute (6) Elevated troponin: Status: Acute (7) Hypertensive urgency: Status: Acute (8) Fall: Status: Chronic (9) Compression fracture: Status: Acute (10) Influenza A: Status: Acute (11) AD (Alzheimer's disease): Status: Acute (12) Constipation: Status: Acute Plan Pt has extensive hx of dementia with noted falls and pain issues with past hx of compression fractures with evidence of new fractures this admission. Spouse wants pt to be comfortable. Dr. Peng reached out to IR and we were able to obtain limited thoracic and lumbar MRI per Dr. Niño. New acute findings found and message is currently pending with Dr. Meraz from IR for review. Dr Meraz is on vacation and unable to reach other IR provider. Reviewed with my attending, Dr Knight, nothing more that can be done and plan will be eventual hospice. Spouse has been updated and agrees with DC plan back to [facility] once medical needs are improved. Noted hypernatremia today, mild hypokalemia 3.2 and leukocytosis of 16. Ordered UA with cuture and will start ceftriaxone empirically. D5W with KCL started. Pt is not eating well or drinking fluids. Pt has not had BM in many days per nursing. Ordered dulcolax NC Pt developed AFIB 2 days ago and was seen by cardiology today and agrees with IV metoprolol but no AC due to pt's fall risk. Noted elevated troponins (likely ischemic demand). TSH and MG are stable. HTN intermittently improved with adding IV metoprolol and catapres patch. No bradycardia noted. Hydralazine continues prn. Morphine effective for pain. 1. Hypernatremia NA 147, pt has been on lasix D5W IV infusion at 100 mls per hour initiated BMP 1600 2. Hypokalemia K 3.2 KCL added to IVF repeat BMP 1600 3. Leukocytosis WBC 16, no bandemia, reequested straight catheterization for UA and culture, pt cannot do CXR flat but lungs neg for adventitious sounds Will start ceftriaxone empirically (pt cannot do po medications) 4. Dysphagia Secondary to advanving dementia, pain medication needs pt is not able to swallow or particiapte in [facility] Goal is to treat current medical problems and pt will transition to Hospice at [facility] per CM 5. New onset AFIB (paroxysmal likely) 06/05 cardiology consulted - agrees with IV loipressor 5 mg Q6H with parameters, no AC due to pt's high fall risk TSH and MG WNL Pt is on tele, currently in NSR with bouts of AFIB CHADSVAD score noted of 6, pt high risk for AC due to number of falls and cardiology does not recommend AC at this time 6. New spinal Compression fractures with known osteoporosis MRI completed, noted acute findings involving T7 and T11. Dr Kerr on vacation unable to reach alternative IR provider. Reviewed with my attending Dr Knight, nothing more that can be done per provider. Pain mgmt includes morphine and oxycodone but pt is not able to take po meds at this time. Pt is having more difficult time with po intake and was not able to participate in [facility] 06/07. Added one regimen of toradol and decadron to help with pain mgmt 06/07. Toradol continues prn. Pt would likely return to if possible for hospice/ end of life care. Will review with CM and update [facility] as needed. CM reaching out to spouse to discuss choices for care. 7. Influenza A Pt remains on precautions, no respiratory issues, fever Tamiflu day 5 Monitor has multiple health issues and is not able to visit in person in fear that he may get the flu 8. HTN with urgency BP intermittently elevate May be secondary to pain issues and pt's inability to communicate needs due to dementia Pain mgmt upgraded, added toradol and decadron X1 06/07, increased frequncy on IV narcotic, adding topical if available, diclofenac po BID (pt not able to take) Pt resumed clonidine patch 06/07, unaware patch was held prior per nursing . No noted bradycardia. Adding lisinopril 10 mgs daily and hydralazine 10 IV once, prn Q6H for SBP > 160 Cardiology agreed with Lopressor 5 IV Q6H with parameters. Can consider nitropaste if needed 9. Elevated troponins Likely ischemic demand, noted BNP, hx of CHF Cardiology consulted ECG no ischemic changes 10. Falls Long hx of falls, secondary to deconditioning, advanced dementia Noted compression fractures, acute findings found via MRI, pt is not a surgical candidate and spouse indicated that he would not want his to have surgery. Working with CM on discharge plan, eventual hospice/ palliaitve care. [facility] will need to be updated. 11. Advanced stage Dementia Pt is having more difficulty with swallowing, sleeping more often. Pt unable to participate in ST evaluation. SPouse is leaning towards palliative care Ativan and hydroxyzine prn pain mgmt 12. Constipation NO BM in many days, po intake very poor Ducolax NC Abd exam benign Lovenox for DVT prophylaxis Spouse has been updated that there are no interventions available to help pt with acute decompression fxs s/p falls. Spouse reiterates that he would not want pt to have any surgery or heroics. Pt may transition to palliative/ hospice care upon retunr to [facility] per CM. Currently DNR only. Continuing to treat hypernatremia, hypokalemia and leukocytosis. DC likely tomorrow 06/09. n Total time managing care of this patient today: 45 minutes. Quality Stroke Does the patient have a stroke diagnosis?: No Reason for No Anti-thrombotic by Day Two: N/A - Med Ordered VTE Prior VTE?: No VTE Risk Level:: Medical - moderate - high VTE Device Contraindication: Treatment Not Indicated VTE Drug Contraindication: N/A - Med Ordered
[2024-06-08] MEDS: KCl 20 mEq in 5 % Dextrose 20 MEQ/1,000 ML IV.SOLN 100 MEQ IVCONT ×2 (10:20→20:58)
--- NOTE | 2024-06-08 10:56 | MHC.SLORD ---
Speech Language Pathology Order Status: Pt unable to respond to verbal stimuli, eyes remain closed, open mouth breathing, restlessness. RN consulted. Pt currently NPO pending swallow assessment when appropriate. [employer] available to speak with family if requested regarding NPO status/prognosis.
[2024-06-08] MEDS: bisacodyL 10 MG SUPP.RECT PR (11:14)
[2024-06-08] MEDS: cefTRIAXone sodium 1 GM VIAL IVPUSH (11:54)
[2024-06-08 11:56] LABS: Appearance Urine Turbid; Color Urine Yellow; Glucose Urine UA Negative (Negative); Leukocyte Esterase Urine Moderate (2+) (Negative); Nitrite Urine Negative (Negative); UMIC TRIGGER UACC YES; Urine Blood Negative (Negative); Urine Ketones 15 mg/dL (Negative); Urine Protein 300 (3+) mg/dL (Neg-Trace)
--- NOTE | 2024-06-08 13:30 | MHC.CM.PN ---
Addendum entered by Azul Oconnor RN 06/08/24 15:54: CM CONTACTED PT'S TRIPP AT 1540PM AT CELL PHONE NUMBER ON FILE TO DISCUSS DISPO AND ANTIC DC TOMORROW AT NOON, TRIPP REPORTS HE WILL BE IN TOMORROW MORNING AND IMM 06/08/24 DELIVERED AND CM WILL GIVE PT'S COPY OF IMM WHEN HE ARRIVES. Original Note: EMR REVIEWED, PER HOSPITALIST PT WILL REMAIN INPT OVERNIGHT FOR TX OF HYPONATREMIA, POTASSIUM REPLACEMNT AND FLUIDS, ANTIC PT WILL DC TOMORROW BACK TO [facility] TOMORROW 06/09 AT 12PM, PT PREBOOKED W/[facility] FOR BLS TRANSPORT, CM WILL CONT TO FOLLOW DC NEEDS.
[2024-06-08] MEDS: hydrOXYzine HCL 50 MG/ML VIAL IM (14:11)
[2024-06-08] MEDS: Enoxaparin Sodium 40 MG/0.4 ML SYRINGE SUBCUT (14:11)
[2024-06-08 14:14] LABS: Bacteria Urine 2+ (None Seen); Hyaline Casts Urine 0-2 /LPF (0-2); Other Crystals Urine Present; RBC Urine 0-2 /HPF (0-2); UACC Culture Trigger YES; WBC Urine 0-5 /HPF (0-5)
[2024-06-08 16:43] LABS: Anion Gap 14 (12-20); Blood Urea Nitrogen 41 mg/dL (9-16); Carbon Dioxide 27 mmol/L (22-29); Chloride 110 mmol/L (96-108); Creatinine Clr Calc Pharmacy 60.5; Estimated Glomerular Filt Rate > 60; Glucose Random 136 mg/dL (60-115); Potassium 3.1 mmol/L (3.3-5.1); Sodium 148 mmol/L (135-145)
[2024-06-08] MEDS: Potassium Chloride/H20 10 MEQ/100 ML PIGGYBACK 100 MEQ IV ×2 (18:28→20:55)
[2024-06-08] MEDS: Metoprolol Tartrate 5 MG/5 ML VIAL IVPUSH (19:58)
[2024-06-09] MEDS: Metoprolol Tartrate 5 MG/5 ML VIAL IVPUSH (00:08)
[2024-06-09] MEDS: LORazepam 2 MG/ML VIAL 0.5 MG IVPUSH (00:09)
--- NOTE | 2024-06-09 02:13 | PC.NURSE ---
During shift pt went into aflutter HR going up as high as 180. Dr. Mcfarland made aware and PRN IVP metoprolol ordered and given with good initial effect. Shortly after pt HR increased and instructed to 2330 IV Metoprolol early with good effect for short period. Pts HR later increased again and PRN instructed to be given again, once again with good effect. At 0104 pt converted back to Sinus rhythm on monitor. Plan of care continuing
[2024-06-09 04:00] VITALS: BP 190/92; PULSE 76; RESP 16; TEMP 36.1; O2SAT 98
[2024-06-09] MEDS: Metoprolol Tartrate 5 MG in 0.9 % Sodium Chloride 50 ML 220 MG IV (06:15)
[2024-06-09 06:29] LABS: MANUAL DIFF FLAG NO
[2024-06-09 06:31] LABS: Basophils Percent Auto 0.2 % (0-2); Eosinophils Percent Auto 0.3 % (0-4); Hematocrit 43.4 % (37.0-47.0); Hemoglobin 13.8 g/dl (12.0-16.0); Imm Gran Pct Auto 0.7 % (0.0-0.4); Lymphocytes Absolute Auto 0.8 X10*3/uL (1.2-4.9); Lymphocytes Percent Auto 5.3 % (20-40); Mean Corpuscular HGB Conc 31.8 g/dl (31.0-35.0); Mean Corpuscular Hemoglobin 29.9 pg (27.0-33.0); Mean Corpuscular Volume 94.1 fL (80.0-98.0); Mean Platelet Volume 11.7 fL (9.4-12.3); Monocytes Absolute Auto 1.5 X10*3/uL (0.1-1.2); Monocytes Percent Auto 9.8 % (2-11); Neutrophils Absolute Auto 12.5 x10*3/uL (2.0-8.3); Neutrophils Percent Auto 83.7 % (45-73); Platelet Count 381 X10*3/uL (160-400); Red Blood Count 4.61 X10*6/uL (4.20-5.50); Red Cell Distribution Width 14.1 % (11.0-16.0); White Blood Count 14.9 X10*3/uL (4.8-10.8)
[2024-06-09] MEDS: Oseltamivir Phosphate 75 MG CAPSULE PO (06:36)
[2024-06-09 06:46] LABS: Anion Gap 15 (12-20); Blood Urea Nitrogen 44 mg/dL (9-16); Calcium 9.9 mg/dL (8.4-10.2); Carbon Dioxide 25 mmol/L (22-29); Chloride 110 mmol/L (96-108); Creatinine Clr Calc Pharmacy 57.4; Estimated Glomerular Filt Rate > 60; Glucose Random 128 mg/dL (60-115); Potassium 3.5 mmol/L (3.3-5.1); Sodium 146 mmol/L (135-145)
[2024-06-09 07:21] VITALS: BP 135/99; PULSE 81; RESP 20; TEMP 36.5; O2SAT 97
[2024-06-09] MEDS: Nitroglycerin 2 % Oint 1 GM Packet 0.5 INCH TRANSDERMA (09:03)
[2024-06-09] MEDS: Furosemide 20 MG/2 ML VIAL IVPUSH (09:03)
[2024-06-09] MEDS: 0.9 % Sodium Chloride Flush 3 ML SYRINGE IVFLUSH (09:12)
[2024-06-09] MEDS: KCl 20 mEq in 5 % Dextrose 20 MEQ/1,000 ML IV.SOLN 100 MEQ IVCONT (09:13)
--- NOTE | 2024-06-09 10:25 | P.DS_ITS ---
DS: Providers Provider Date of Service: 06/09/24 Date of admission: 06/04/24 14:58 Date of discharge: 06/09/24 Primary care physician: Torrey Olivares MD Consults: 06/05/24 23:03 Consult to Wound Care Routine Reason for consultation: Multiple bruises s/p fall 06/06/24 10:48 Consult to Cardiology Routine Consulting Provider: [facility] [place] Reason for consultation: new onset AFIB overnight elevated troponins Has provider been notified: No Attending physician on discharge: [facility] Discharging clinician: Puja Turpin DS: Diagnosis Discharge Diagnosis (1) UTI (urinary tract infection), uncomplicated: Status: Acute (2) Hypernatremia: Status: Acute (3) Hypokalemia: Status: Resolved (4) Leukocytosis: Status: Acute (5) Dysphagia: Status: Chronic (6) New onset a-fib: Status: Chronic (7) Elevated troponin: Status: Resolved (8) Hypertensive urgency: Status: Resolved (9) Fall: Status: Chronic (10) Compression fracture: Status: Chronic (11) Influenza A: Status: Resolved (12) AD (Alzheimer's disease): Status: Chronic (13) Constipation: Status: Chronic (14) Self-care deficit: Status: Chronic DS: Summary Hospital Course Hospital Course: Admission HPI Chief Complaint: Unwitnessed fall Pt is a 78-year-old female with a PMH significant for?Alzheimer's, HTN, COPD, adjustment disorder, and acute psychosis who presents to the ED from [facility] dementia unit after unwitnessed fall with suspected head strike as pt had dried blood around her nose. According to EMS report pt normally uses walker for ambulation, but was found on the ground without her walker. Pt with advanced dementia and primarily nonverbal. Unable to follow commands or answer questions. Reportedly at baseline. Pt has been agitated and attempting to get out of bed multiple times in the ED. imaging revealed age-indeterminate compression fractures. ED clinician spoke to who was unaware of any hx of compression fractures. ED offered to transfer pt to tertiary facility for possible intervention due to trauma, but did not want transfer or any surgical intervention. Would like pt to remain in the hospital for medical management. In the ED pt with elevated HR of 94, tacypnea of 21, and hypertension of 230/112, desatting to 82% on RA. Labs were significant for testing positive for influenza type a, initial troponin 271.5 with repeat flat at 291.0 and mildly elevated BNP of 172. Chronic leukocytosis of 12.0, lower than baseline. Stable H&H. No significant electrolyte abnormalities. Lactic acid WNL. AST elevated 43, LFTs otherwise WNL. CPK WNL at 98. UA negative for UTI. CXR showed large left pleural effusion with underlying consolidation concerning for atelectasis or possible pneumonia. CTA of head negative for acute intracranial hemorrhage or fracture, though does show frontal scalp hematoma. CT of cervical spine negative for acute fracture or malalignment. CT?of chest showing trace bilateral pleural effusions without underlying consolidation. Lumbar spine x-ray with several age-indeterminate compression fractures. X-ray of bilateral hip negative for definitive fracture. EKG demonstrated normal sinus rhythm with T- wave inversions more evident in lateral leads. Pt was treated with losartan p.o. and morphine IV. Pt will be admitted to the hospital for treatment and further evaluation of multiple issues, including acute hypoxic respiratory failure in the setting of acute influenza type a infection, as well as hypertensive urgency and elevated troponins in the setting of likely intractable pain from compression fractures secondary to fall at home. During admission, patient remained nonverbal and dependent for all self-care needs including ADLs and IADLs. Patient was not able to take oral intake in regards to food, fluids or medications. Dr. Peng have reviewed possible interventions for acute compression fractures noted on MRI interventional radiology. Patient determined not to be a candidate for any intervention based on advanced dementia and active chronic medical issues. Per patient's spouse, he did not want patient to undergo any surgeries or heroics. It was determined that patient could be transferred to her current facility based on spouse's choice for hospice care. Patient did develop new onset atrial fibrillation intermittently, seen by Cardiology. Based on patient's prognosis, Cardiology felt anticoagulation would be contraindicated due to patient's fall risk. Patient was started on IV metoprolol 5 mg q.6 hours around the clock with parameters as patient was not able to take oral medication. Patient's heart rate is currently controlled but remains irregular. This was reviewed with patient's spouse by phone. Patient is currently receiving her Catapres patch and this has helped her blood pressure regularly. Patient is also on the metoprolol IV and again blood pressure better regulated. Patient will be transitioning to hospice care and these medications will likely be discontinued. A urine sample was collected on 06/08/2024 and noted to have moderate leukocyte esterase. Patient has been on ceftriaxone for the last 48 hours. There has been no change in patient's mental status or ability to participate in self- care. Patient continues with inability to take oral medication, food and fluids. Patient also developed hypernatremia as patient has been on low-dose Lasix. Patient was started on a D5 W with 20 KCL for potassium of 3.2. Patient's sodium has improved to 146 and potassium is currently 3.9. Due to patient's discharge plan of transferring to hospice patient will not continue on IV fluids and will not have any further labs drawn. Patient's spouse educated on patient's current medical concerns and spouse is continuing with the plan to transition to hospice care with the understanding of patient's current medical status. Spouse feels patient has ?suffered enough? and wants patient to be comfortable. Spouse does not want any surgical procedures performed or any other procedures performed or any heroics. Plan is to discharge patient back to the book at 12 noon today. Patient will transition to hospice care services once transferred. Status at Discharge Cognitive/behavioral status at discharge: altered mental status secondary to advanced Alzheimer's disease. Patient is nonverbal and is not able to participate in self-care. Patient is not eating or drinking fluids and is unable to take oral medications Functional status at discharge: bed bound Overall status at discharge: patient is not back to baseline (Chronic advancing Alzheimer's disease) Time Attestation Total time managing care of this patient today: 45 mintues. Discharge Coordination Time (in mins): 20 Specific discharge activities: Coordination of care, dictation of medical record, writing orders and completing discharge summary. Speaking with spouse by phone Quality: Safe Use of Opioids Does Pt have an Active Cancer Diagnosis on the Problem List?: No Quality: Stroke Does the patient have a stroke diagnosis?: No Reason for No Anti-thrombotic at DC: Not indicated Reason for No Anticoagulant at DC: Contraindicated (Per cardiology patient is not a candidate for anticoagulation noting AFib due to history of falls) Reason Not Initiating IV-Tpa: Not indicated Reason for No Anti-thrombotic by Day Two: Not indicated Reason for No Statin at DC: Contraindicated (Patient is transferring to hospice care. Patient is no longer able to take oral medications) Physical Exam Vital Signs: Vital Signs: Last Vital Signs Temp 97.7 F 06/09/24 07:21 Pulse 81 06/09/24 07:21 Resp 20 06/09/24 07:21 BP 135/99 H 06/09/24 07:21 Pulse Ox 97 06/09/24 07:21 O2 Del Method Nasal Cannula 06/09/24 07:21 O2 Flow Rate 2 06/09/24 07:21 BMI result Body Mass Index 21.4 Non verbal, moves head and upper ext intermittently with no purpose. Pt cannot follow commands. Neuro: Unable to assess EYES: PERRLA ENT: Unable to assess hearing, oral mucosa dry, no interest in food or fluids whne offered Cardiac: S1 S2 irregular, rate 81, no murmur, no JVD, no edema in Lower ext Pulmonary: lungs diminished bilaterally Abdominal: BS diminished in all quadrants, no distention or tenderness with exam MSK: strength 2-3/5 upper and lower ext : no bladder distension Extremities: no edema in lower extremities, PT and DP pulses palpable +2 Psych: Unable to assess Skin: facial bruising in healing stage, lower ext bruising B knees and legs, healing stages DS: Data Data Completed and Pending Labs on day of discharge: Laboratory Results - last 24 hr 06/08/24 06/08/24 06/09/24 11:42 15:50 05:54 WBC 14.9 H RBC 4.61 Hgb 13.8 Hct 43.4 MCV 94.1 MCH 29.9 MCHC 31.8 RDW 14.1 Plt Count 381 MPV 11.7 Immature Gran % (Auto) 0.7 H Neut % (Auto) 83.7 H Lymph % (Auto) 5.3 L [place] % (Auto) 9.8 Eos % (Auto) 0.3 Baso % (Auto) 0.2 Lymph # (Auto) 0.8 L [place] # (Auto) 1.5 H Eos # (Auto) 0.0 Baso # (Auto) 0.0 Abs Immat Gran (auto) 0.10 H Absolute Neuts (auto) 12.5 H Absolute Nucleated RBC 0.000 Nucleated RBC % (auto) 0.0 Sodium 148 H 146 H Potassium 3.1 L 3.5 Chloride 110 H 110 H Carbon Dioxide 27 25 Anion Gap 14 15 BUN 41 H 44 H Creatinine 0.74 0.78 Estim Creat Clear Calc 60.5 57.4 Estimated GFR > 60 > 60 Random Glucose 136 H 128 H Calcium 10.0 D 9.9 Urine Color Yellow Urine Appearance Turbid Urine pH 7.0 Ur Specific [place] 1.020 Urine Protein 300 (3+) H Urine Glucose (UA) Negative Urine Ketones 15 Urine Blood Negative Urine Nitrite Negative Ur Leukocyte Esterase Moderate (2+) H Urine RBC 0-2 Urine WBC 0-5 Ur Squamous Epith Cells 3-5 Other Crystals Present Urine Bacteria 2+ Hyaline Casts 0-2 Preliminary micro results at discharge 06/04/24 09:05 Blood Culture - Preliminary Blood - Venous No growth after 48 hours. 06/04/24 09:05 Blood Culture - Preliminary Blood - Venous No growth after 48 hours. Imaging MRI spine: Radiologist's impression: IMPRESSION: 1. Motion artifact limits evaluation of the portions of the study. 2. Chronic superior endplate compression fractures of the L1, L4 and L5 vertebral bodies. 3. Moderate spinal canal stenosis at L3-4. 4. Mild spinal canal stenosis at L4-5. 5. Moderate multilevel spondylosis with multilevel neural foraminal narrowing. 6. Acute anterior superior endplate compression fracture of the T12 vertebral body with approximately 30 percent height loss. Chest x-ray: Radiologist's impression: Impression: 1. Mildly limited examination related to suboptimal patient positioning. There is [id number] cardiomegaly with findings suggesting pulmonary edema and small left/small to moderate right pleural effusions. hip xray: Radiologist's impression: Findings: No definite fracture Diffuse demineralization and moderate degenerative changes are noted. The soft tissues are unremarkable. CT scan - head: Radiologist's impression: IMPRESSION: 1. No evidence of acute intracranial hemorrhage or skull fracture. Frontal scalp hematoma. Two. Moderate volume loss and chronic microvascular ischemic change. cervical spine CT: Radiologist's impression: IMPRESSION: No evidence of acute cervical spine fracture or malalignment. Discharge Plan Discharge Anticipated Discharge Date/Time: 06/09/24 12:00 Patient Disposition: Xfer SNF Discharge Diagnosis: Advanced dementia, FTT, compression fractures, Referrals: [facility] [Outside] - 1 Day ([facility] ) [facility] [Outside] - 1 Day ([facility]) Torrey Olivares MD [Primary Care Provider] - 1 Week Discharge Medications: New ceftriaxone 1 gram recon soln 1 g IM DAILY Qty: 1 0RF acetaminophen 650 mg suppository 650 mg OH Q6H Qty: 12 0RF ondansetron 4 mg tablet,disintegrating 4 mg PO Q8H PRN (Reason: nausea and vomiting) Qty: 14 0RF diclofenac sodium 1 % gel 2 g topical QID Qty: 100 0RF Rx Instructions: apply to low back, B knees or any other affected joint. Avoid facial areas. bisacodyl [Dulcolax (bisacodyl)] 10 mg suppository 10 mg OH DAILY PRN (Reason: constipation) Qty: 12 0RF atropine 1 % drops 1 drp buccal Q4-6H PRN (Reason: secretions) Qty: 5 0RF morphine concentrate 100 mg/5 mL (20 mg/mL) solution 5 mg PO Q3H PRN (Reason: pain/comfort) 15 Days Qty: 30 0RF Rx Instructions: Partial Fill upon patient request. scopolamine base 1 mg over 3 days patch 3 day 1 patch transdermal Q72H 12 Days Qty: 4 0RF Rx Instructions: 1 patch behind ear Q72H for secretions lorazepam [Lorazepam Intensol] 2 mg/mL concentrate 0.5 mg PO Q4H PRN (Reason: anxiety/restlessness) Qty: 30 0RF Continued clonidine 0.1 mg/24 hr patch weekly 1 patch topical TH@0900 Discharge Orders: Discharge Order (Routine); Ordered 06/09/24 Ordered By: Puja Turpin Diet: Advance to usual diet Activity on Discharge: Bed rest observation may be needed Stand Alone Forms: Patient Portal Discharge page Print Language: Urugu[place] Activity Restrictions/Additional Instructions: bed alarm, fall prevention measures, 1:1 if needed Care Plan Goals: For pt to achieve comfort in a medical facility Health Concerns: Aspiration, pain, falls Plan of Treatment: Per pt's spouse, plan is to transition pt to hospice/ palliaitve care Pt has advanced stage dementia with noted decline to include pt's inability to perform self-care, eat, drink and communicate. Pt is nonverbal and requires 24/7 care for all ADLs and IADLs. Assessment: Pt admitted s/p fall with noted advanced dementia and evidence of decline where pt can not care for self in any way, communicate, take po medications and is currently not indicating desire to eat or drink. Per spouse, pt has been living this way for some time and feels it is time for pt to receive hospice care. Pt will transition to hospice at [facility] upon discharge. Patient Instructions: Hospice Care (GEN)
[2024-06-09 11:06] VITALS: BP 131/85; PULSE 79; RESP 20; TEMP 36.1; O2SAT 97
[2024-06-09] MEDS: cefTRIAXone sodium 1 GM VIAL IVPUSH (12:13)
[2024-06-09] MEDS: lisinopriL 10 MG TABLET PO (12:13)
[2024-06-09] MEDS: Enoxaparin Sodium 40 MG/0.4 ML SYRINGE SUBCUT (12:14)
--- NOTE | 2024-06-09 13:08 | MHC.CM.PN ---
PT DISCHARGING BACK TO [facility] AT 1PM, PT'S AWARE AND AGREEABLE TO [facility] FOR BLS TRANSPORT.
--- NOTE | 2024-06-09 14:26 | MHC.SLORD ---
Speech Language Pathology Order Status: Patient pending discharge to [facility]. [employer] attempted to evaluate patient for swallow/diet 06/07, , , patient was not adequately awake/alert/able to participate on any of these days, evaluation and assignment of diet not completed during this inpatient stay.
--- NOTE | 2024-06-13 14:09 | P.CDIM_ITS ---
PROVIDER RESPONSE TEXT: To clarify, the appropriate diagnosis supported by the clinical indicators: Systolic: acute QUERY TEXT: PHYSICIAN'S DOCUMENTATION REQUEST Date of Query: 06/06/2024 11:14 AM EDT Patient Name: Natalia Tarango Admit Date: 06/04/2024 Dear Tee Peng DO, A review of the medical record indicates additional documentation may be needed. Please review below and update the documentation accordingly. Clinical Indicators: H&P 06/04/24 - Past medical history: Congestive heart failure BNP 172 H Hypertensive urgency with BP 203/100 H Please provide further specificity regarding the most likely type and acuity of CHF you are evaluatin g, treating, or monitoring. Systolic Please specify if Acute, Chronic, or Acute on chronic, or Unable to determine Diastolic Please specify if Acute, Chronic, or Acute on chronic, or Unable to determine Combined Systolic/Diastolic Please specify if Acute, Chronic, or Acute on chronic, or Unable to determine CHF ruled out after study Other (explain) Clinically unable to determine (explain) Thank you, Kortney Pearce, CCS, CDIS Use of terms such as suspected, likely, concern for, or probable (associated with a specific diagnosi s that is being evaluated, monitored, or treated as if it exists) are acceptable and can be coded in the inpatient se tting, when documented at the time of discharge. Please use your independent medical judgment in providing your response. THIS QUERY IS PART OF THE PERMANENT MEDICAL RECORD
== END 2024-06-09 13:00 | disposition skilled nursing facility (03) | DRG 193 ==
LOC: HO.ED 11:11 → HO.EDOVER 15:13 → HO.IMC 06-05 07:47
PROVIDERS: Hospitalist; Internal Medicine; Physician Assistant; Admitting Provider Student in an Organized Health Care Education/Training Program; Emergency Provider Emergency Medicine; PCP Family Medicine; Visit Provider Nurse Practitioner Family
DX: J10.1 Influenza due to other identified influenza virus with other respiratory manifestations (principal); I50.21 Acute systolic (congestive) heart failure; J96.01 Acute respiratory failure with hypoxia; S22.089A Unspecified fracture of T11-T12 vertebra, initial encounter for closed fracture; S22.069A Unspecified fracture of T7-T8 vertebra, initial encounter for closed fracture; W19.XXXA Unspecified fall, initial encounter; G30.9 Alzheimer's disease, unspecified; R13.10 Dysphagia, unspecified; K59.00 Constipation, unspecified; F02.80 Dementia in other diseases classified elsewhere, unspecified severity, without behavioral disturbance, psychotic disturbance, mood disturbance, and anxiety; R62.7 Adult failure to thrive; Z68.21 Body mass index [BMI] 21.0-21.9, adult; I48.0 Paroxysmal atrial fibrillation; I11.0 Hypertensive heart disease with heart failure; R29.6 Repeated falls; I16.0 Hypertensive urgency; Z20.822 Contact with and (suspected) exposure to COVID-19; Z87.891 Personal history of nicotine dependence; Z79.899 Other long term (current) drug therapy
CPT/HCPCS: 0241U; 36415; 36600; 70450; 71045; 71250; 72100; 72125; 72146; 72148; 73522; 80048; 80053; 81001; 82550; 82803; 82947; 83605; 83735; 83880; 84443; 84484; 85025; 87040; 87086; 93005; 99285; J0360; J0696; J1100; J1650; J1885; J1920; J1940; J2060; J2270; J3410; J3480

== ENCOUNTER → 2024-06-04 05:30 | Outpatient (BNV) | payer MEDICAID, SELFPAY | PROVIDERS: Emergency Provider Emergency Medicine; PCP Family Medicine; Visit Provider Internal Medicine Cardiovascular Disease | DX: I51.7 Cardiomegaly (principal) | CPT/HCPCS: 93010 ==

== ENCOUNTER → 2024-06-04 06:05 | Outpatient (BNV) | payer MEDICAID, SELFPAY | PROVIDERS: Emergency Provider Emergency Medicine; PCP Family Medicine; Visit Provider Radiology Diagnostic Radiology | DX: J90 Pleural effusion, not elsewhere classified (principal); R51.9 Headache, unspecified; M25.551 Pain in right hip; M25.552 Pain in left hip; S32.010D Wedge compression fracture of first lumbar vertebra, subsequent encounter for fracture with routine healing; S32.040D Wedge compression fracture of fourth lumbar vertebra, subsequent encounter for fracture with routine healing; S32.050D Wedge compression fracture of fifth lumbar vertebra, subsequent encounter for fracture with routine healing | CPT/HCPCS: 70450; 71045; 71250; 72125 ==

== ENCOUNTER 2024-06-04 14:58 | Outpatient (BNV) | payer MEDICARE, MEDICAID, SELFPAY | END 2024-06-06 04:44 | PROVIDERS: Admitting Provider Student in an Organized Health Care Education/Training Program; Emergency Provider Emergency Medicine; PCP Family Medicine; Visit Provider Internal Medicine Cardiovascular Disease | DX: I48.91 Unspecified atrial fibrillation (principal); I45.10 Unspecified right bundle-branch block; I51.7 Cardiomegaly | CPT/HCPCS: 93010 ==

== ENCOUNTER 2024-06-04 14:58 | Outpatient (BNV) | payer MEDICARE, MEDICAID, SELFPAY | END 2024-06-06 17:10 | PROVIDERS: Admitting Provider Student in an Organized Health Care Education/Training Program; Emergency Provider Emergency Medicine; PCP Family Medicine; Visit Provider Radiology Diagnostic Radiology | DX: S22.080A Wedge compression fracture of T11-T12 vertebra, initial encounter for closed fracture (principal); S22.060A Wedge compression fracture of T7-T8 vertebra, initial encounter for closed fracture; D18.09 Hemangioma of other sites; M47.814 Spondylosis without myelopathy or radiculopathy, thoracic region; S32.010A Wedge compression fracture of first lumbar vertebra, initial encounter for closed fracture; S32.040A Wedge compression fracture of fourth lumbar vertebra, initial encounter for closed fracture; S32.050A Wedge compression fracture of fifth lumbar vertebra, initial encounter for closed fracture | CPT/HCPCS: 72146; 72148 ==

== ENCOUNTER → 2024-06-04 14:58 | Outpatient (BNV) | payer MEDICARE, MEDICAID, SELFPAY | PROVIDERS: Admitting Provider Student in an Organized Health Care Education/Training Program; Emergency Provider Emergency Medicine; PCP Family Medicine; Visit Provider Internal Medicine Cardiovascular Disease | DX: I48.91 Unspecified atrial fibrillation (principal); I16.0 Hypertensive urgency | CPT/HCPCS: 99222 ==

== ENCOUNTER → 2024-06-04 14:58 | Outpatient (BNV) | payer MEDICAID, SELFPAY | PROVIDERS: Admitting Provider Student in an Organized Health Care Education/Training Program; Emergency Provider Emergency Medicine; PCP Family Medicine; Visit Provider Student in an Organized Health Care Education/Training Program | DX: J10.1 Influenza due to other identified influenza virus with other respiratory manifestations (principal); I16.0 Hypertensive urgency; R79.89 Other specified abnormal findings of blood chemistry | CPT/HCPCS: 99223; 99233 ==